=== PATIENT | male | born 1940 | race Caucasian/White ===

== ENCOUNTER 2018-06-23 09:10 | Inpatient (IN) | payer MEDICARE, BC ==
[2018-06-23] MEDS ORDERED: oxyCODONE 5 MG Tab PO PRN (12:16)
[2018-06-23] MEDS ORDERED: Ondansetron 4 MG/2 ML SDV IVPUSH PRN (12:16)
[2018-06-23] MEDS ORDERED: Albuterol 6.7 GM Inhaler INH PRN (12:26)
[2018-06-23 13:15] LABS: ANION GAP 15.4; CHLORIDE,CL 99 mmol/L (101-111); SODIUM,NA 134 mmol/L (135-145)
[2018-06-23] MEDS ORDERED: Warfarin 2.5 MG Tab PO ONE (14:00)
[2018-06-23] MEDS ORDERED: Warfarin 5 MG Tab PO ONE (14:00)
[2018-06-23] MEDS: Insulin Regular, Human 100 Units/ML 3 ML Vial SUBCUT SCH ×2 (14:06→21:24)
[2018-06-23] MEDS: Insulin Isophane NPH, Human 100 Units/ML 10 ML Vial SUBCUT SCH ×2 (14:06→21:05)
[2018-06-23] MEDS: Carbidopa/Levodopa 25-250 MG Tab PO SCH ×2 (14:24→21:03)
[2018-06-23] MEDS: Acetaminophen 500 MG Tab PO PRN (14:24)
--- NOTE | 2018-06-23 15:30 | PCM.HP ---
H&P History of Present Illness - General Date of Service: 06/23/18 Admit Problem/Dx: Admission Diagnosis/Problem Admission Diagnosis/Problem Arthroplasty of knee Source of Information: Patient History Limitations: Reports: No Limitations - History of Present Illness Initial Comments - Free Text/Narative: Mr. Rouse is a 77-year-old gentleman with past medical history significant for hypertension, hyperlipidemia, type 2 diabetes mellitus, chronic atrial fibrillation on chronic anticoagulation with Coumadin, obstructive sleep apnea on CPAP at night, rheumatoid arthritis, status post left total knee arthroplasty was transferred to this hospital from [facility] following left knee arthroplasty. Patient underwent left knee arthroplasty on 06/20/2018. Postoperative course was without complications. Transferred to swing bed here. On interview, patient denied any complaints. He reported some postoperative constipation that resolved yesterday. He denied any chest pain or shortness of breath, nausea or vomiting, change in his urinary habits. He has occasional knee pain that is responsive to Tylenol. He has been off anticoagulation for approximately 1 week. Left Knee Pain Score (Numeric/FACES): 2 - Related Data Allergies/Adverse Reactions: Allergies Allergy/AdvReac Type Severity Reaction Status Date / Time clemastine Allergy Cannot Verified 06/23/18 11:50 Remember erythromycin base Allergy Abdominal Verified 06/23/18 11:50 Pain Home Medications: Home Meds Aspirin [Adult Low Dose Aspirin EC] 81 mg PO DAILY 08/13/14 [History] Calcium Carbonate 500 mg PO BID 08/13/14 [History] Furosemide 40 mg PO DAILY 08/13/14 [History] Lisinopril 20 mg PO BID 08/13/14 [History] Omeprazole 20 mg PO BID 08/13/14 [History] Simvastatin [Zocor] 20 mg PO BEDTIME 08/13/14 [History] Verapamil [Calan SR] 240 mg PO DAILY 08/13/14 [History] Insulin Regular, Human [HumuLIN R] 12 units SUBCUT BID 08/14/14 [History] Warfarin [Coumadin] 7.5 mg PO DAILY 08/14/14 [History] Albuterol [Proventil HFA] 2 puff INH Q4H PRN 06/20/15 [History] Budesonide [Pulmicort] 0.5 mg NEB BIDRT 06/20/15 [History] Formoterol [Perforomist] 20 mcg NEB BIDRT 06/20/15 [History] Sennosides/Docusate Sodium [Senna-Docusate Sodium] 2 tab PO BID PRN 06/20/15 [ History] Acetaminophen 1,000 mg PO Q8H PRN 06/23/18 [History] Carbidopa/Levodopa [Carbidopa-Levo 25-250 mg Odt] 1 tab PO TID 06/23/18 [History ] Flaxseed Oil 1,000 mg PO BID 06/23/18 [History] Gabapentin [Neurontin] 300 mg PO BEDTIME 06/23/18 [History] Insulin Isophane NPH, Human [HumuLIN N] 12 units SQ BID 06/23/18 [History] Insulin Isophane NPH, Human [HumuLIN N] 20 unit SUBCUT BIDMEALS 06/23/18 [ History] Levothyroxine 25 mcg PO ACBREAKFAST 06/23/18 [History] Turmeric Root Extract [Turmeric Curcumin] 500 mg PO DAILY 06/23/18 [History] Warfarin [Coumadin] 0.5 tab PO DAILY 06/23/18 [History] oxyCODONE 5 mg PO Q4H PRN 06/23/18 [History] sulfaSALAzine 500 mg PO BID 06/23/18 [History] Past Medical History HEENT History: Reports: Allergic Rhinitis, Cataract, Hard of Hearing, Impaired Vision Cardiovascular History: Reports: Afib, Blood Clots/VTE/DVT, High Cholesterol, Hypertension Respiratory History: Reports: COPD, Pulmonary Fibrosis, Sleep Apnea Gastrointestinal History: Reports: GERD Genitourinary History: Reports: Chronic Renal Insuffiency Musculoskeletal History: Reports: Osteoarthritis, RA Neurological History: Reports: Neuropathy, Diabetic, Other (See Below) Other Neuro History: "light stroke" Psychiatric History: Reports: Anxiety Endocrine/Metabolic History: Reports: Diabetes, Type II - Infectious Disease History Infectious Disease History: Reports: Chicken Pox, Measles, Mumps - Past Surgical History Cardiovascular Surgical History: Reports: Other (See Below) GI Surgical History: Reports: Appendectomy, Cholecystectomy Musculoskeletal Surgical History: Reports: Knee Replacement Social & Family History - Family History Family Medical History: Noncontributory - Tobacco Use Smoking Status *Q: Former Smoker Years of Tobacco use: 10 Packs/Tins Daily: 1 Used Tobacco, but Quit: Yes Month/Year Tobacco Last Used: 1982 - Caffeine Use Caffeine Use: Reports: Coffee - Recreational Drug Use Recreational Drug Use: No H&P Review of Systems - Review of Systems: Review Of Systems: See Below General: Reports: No Symptoms HEENT: Reports: No Symptoms Pulmonary: Reports: No Symptoms Cardiovascular: Reports: No Symptoms Gastrointestinal: Reports: No Symptoms Genitourinary: Reports: No Symptoms Musculoskeletal: Reports: Other (left knee pain) Skin: Reports: No Symptoms Psychiatric: Reports: No Symptoms Neurological: Reports: No Symptoms Hematologic/Lymphatic: Reports: No Symptoms Immunologic: Reports: No Symptoms Exam - Exam Exam: See Below - Vital Signs Vital Signs: Last Vital Signs Temp 37.6 C 06/23/18 11:41 Pulse 92 06/23/18 11:41 Resp 18 06/23/18 11:41 BP 163/75 H 06/23/18 11:41 Pulse Ox 96 06/23/18 11:41 Weight: 106.866 kg - Exam General: Alert, Oriented HEENT: Conjunctiva Clear, EOMI Lungs: Clear to Auscultation, Normal Respiratory Effort Cardiovascular: Irregular Rhythm. No: Systolic Murmur GI/Abdominal Exam: Normal Bowel Sounds, Soft, Non-Tender, No Organomegaly, No Distention, No Abnormal Bruit Extremities: Other (left knee incision is covered.). No: Pedal Edema Skin: Warm, Dry, Intact Neuro Extensive - Mental Status: Alert, Oriented x3, Normal Mood/Affect, Normal Cognition Psychiatric: Alert, Normal Affect, Normal Mood - Patient Data Lab Results Last 24 hrs: Laboratory Results - last 24 hr 06/23/18 06/23/18 06/23/18 Range/Units 12:48 12:48 12:48 WBC 7.4 (5.0-10.0) 10^3/uL RBC 3.51 L (4.6-6.2) 10^6/uL Hgb 11.5 L (14.0-18.0) g/dL Hct 35.1 L (40.0-54.0) % MCV 100.0 D (80-100) fL MCH 32.8 (27.0-34.0) pg MCHC 32.8 L (33.0-35.0) g/dL Plt Count 124 L (150-450) 10^3/uL Neut % (Auto) 74.6 (42.2-75.2) % Lymph % (Auto) 11.5 L (20.5-50.1) % [place] % (Auto) 11.2 H (2-8) % Eos % (Auto) 2.6 (1.0-3.0) % Baso % (Auto) 0.1 (0.0-1.0) % PT 11.9 D (9.0-12.0) SEC INR 1.2 (0.9-1.2) Sodium 134 L (135-145) mmol/L Potassium 4.4 (3.6-5.0) mmol/L Chloride 99 L (101-111) mmol/L Carbon Dioxide 24.0 (21.0-31.0) mmol/L Anion Gap 15.4 BUN 18 (7-18) mg/dL Creatinine 1.1 (0.6-1.3) mg/dL Est Cr Clr Drug Dosing 58.07 mL/min Estimated GFR (MDRD) > 60 BUN/Creatinine Ratio 16.36 Glucose 136 H (74-105) mg/dL Calcium 8.7 (8.4-10.2) mg/dl Total Bilirubin 1.5 H (0.2-1.0) mg/dL AST 46 H (10-42) IU/L ALT 12 (10-60) IU/L Alkaline Phosphatase 152 H (42-121) IU/L Total Protein 6.3 L (6.7-8.2) g/dl Albumin 3.2 (3.2-5.5) g/dl Globulin 3.1 Albumin/Globulin Ratio 1.03 Result Diagrams: 06/23/18 12:48 06/23/18 12:48 - Problem List (1) Hypertension SNOMED Code(s): 17864271 ICD Code: I10 - ESSENTIAL (PRIMARY) HYPERTENSION Status: Acute Current Visit: Yes (2) Thrombocytopenia SNOMED Code(s): 371772064 ICD Code: D69.6 - THROMBOCYTOPENIA, UNSPECIFIED Status: Acute Current Visit: Yes (3) Total knee replacement status SNOMED Code(s): 0376154124983, 718233366, 3090374642935 ICD Code: Z96.659 - PRESENCE OF UNSPECIFIED ARTIFICIAL KNEE JOINT Status: Acute Priority: High Current Visit: No Qualifiers: Laterality: right Qualified Code(s): Z96.651 - Presence of right artificial knee joint (4) Afib SNOMED Code(s): 11243946 ICD Code: I48.91 - UNSPECIFIED ATRIAL FIBRILLATION Status: Chronic Priority: Low Current Visit: No (5) Diabetes SNOMED Code(s): 85121431 ICD Code: E11.9 - TYPE 2 DIABETES MELLITUS WITHOUT COMPLICATIONS Status: Chronic Priority: Medium Current Visit: No Qualifiers: Diabetes mellitus type: type 2 Diabetes mellitus complication status: without complication Qualified Code(s): E11.9 - Type 2 diabetes mellitus without complications (6) BOWEN (obstructive sleep apnea) SNOMED Code(s): 91295940 ICD Code: G47.33 - OBSTRUCTIVE SLEEP APNEA (ADULT) (PEDIATRIC) Status: Acute Current Visit: Yes Problem List Initiated/Reviewed/Updated: Yes Orders Last 24hrs: Active Orders 24 hr Category Date Time Status Patient Status [ADT] Routine ADT 06/23/18 12:16 Active Ambulate [RC] PER UNIT ROUTINE Care 06/23/18 12:16 Active Antiembolic Devices [RC] PER UNIT ROUTINE Care 06/23/18 12:24 Active Blood Glucose Check, Bedside [RC] QIDACANDBED Care 06/23/18 12:16 Active Oxygen Therapy [RC] PRN Care 06/23/18 12:16 Active Up With Assistance [RC] ASDIRECTED Care 06/23/18 12:16 Active Up to Chair [RC] ASDIRECTED Care 06/23/18 12:16 Active Vital Signs [RC] 08,20 Care 06/23/18 12:16 Active OT Evaluation and Treatment [CONS] Routine Cons 06/23/18 12:16 Active PT Evaluation and Treatment [CONS] Routine Cons 06/23/18 12:16 Active Consistent Carbohydrate Diet [DIET] Diet 06/23/18 Lunch Active INR,PT,PROTHROMBIN TIME [COAG] DAILY Lab 06/24/18 06:00 Ordered INR,PT,PROTHROMBIN TIME [COAG] DAILY Lab 06/25/18 06:00 Ordered INR,PT,PROTHROMBIN TIME [COAG] DAILY Lab 06/26/18 06:00 Ordered INR,PT,PROTHROMBIN TIME [COAG] DAILY Lab 06/27/18 06:00 Ordered INR,PT,PROTHROMBIN TIME [COAG] DAILY Lab 06/28/18 06:00 Ordered INR,PT,PROTHROMBIN TIME [COAG] DAILY Lab 06/29/18 06:00 Ordered INR,PT,PROTHROMBIN TIME [COAG] DAILY Lab 06/30/18 06:00 Ordered Acetaminophen [Tylenol Extra Strength] Med 06/23/18 12:26 Active 1,000 mg PO Q8H PRN Albuterol [Proventil HFA] Med 06/23/18 12:26 Active 0 gm INH Q4H PRN Aspirin [Halfprin] Med 06/24/18 09:00 Active 81 mg PO DAILY Budesonide [Pulmicort] Med 06/23/18 18:00 Active 0.5 mg NEB BIDRT Carbidopa/Levodopa [Sinemet 25-250 mg] Med 06/23/18 14:00 Active 1 tab PO TID Docusate Sodium/Sennosides [Senna Plus] Med 06/23/18 12:26 Active 2 tab PO BID PRN Formoterol [Perforomist] Med 06/23/18 18:00 Active 0 mcg NEB BIDRT Furosemide [Lasix] Med 06/24/18 09:00 Active 40 mg PO DAILY Gabapentin [Neurontin] Med 06/23/18 21:00 Active 300 mg PO BEDTIME Insulin Isophane NPH, Human [NovoLIN N] Med 06/23/18 12:26 Active 12 unit SUBCUT BID Insulin Regular, Human [HumuLIN R] Med 06/23/18 12:30 Active 12 unit SUBCUT BID Levothyroxine Med 06/24/18 06:00 Active 25 mcg PO ACBREAKFAST Lisinopril [Prinivil] Med 06/23/18 21:00 Active 20 mg PO BID Omeprazole Med 06/23/18 17:00 Active 20 mg PO BIDAC Ondansetron [Zofran] Med 06/23/18 12:16 Active 4 mg IVPUSH Q6H PRN Pharmacy to Dose - Warfarin Med 06/23/18 12:45 Pending 1 dose .XX ASDIRECTED Simvastatin [Zocor] Med 06/23/18 21:00 Active 20 mg PO BEDTIME Verapamil [Calan SR] Med 06/24/18 08:00 Active 240 mg PO WITHBREAKFAST oxyCODONE Med 06/23/18 12:16 Active 5 mg PO Q4H PRN sulfaSALAzine Med 06/23/18 21:00 Active 500 mg PO BID Sequential Compression Device [OM.PC] Routine Oth 06/23/18 12:16 Ordered Resuscitation Status Routine Resus Stat 06/23/18 12:16 Ordered Medication Orders Acetaminophen (Tylenol Extra Strength) 1,000 mg PO Q8H PRN PRN Reason: Pain Last Admin: 06/23/18 14:24 Dose: 1,000 mg Albuterol (Proventil Hfa) 0 gm INH Q4H PRN PRN Reason: Wheezing Aspirin (Halfprin) 81 mg PO DAILY [facility] Budesonide (Pulmicort) 0.5 mg NEB BIDRT [facility] Carbidopa/Levodopa (Sinemet 25-250 Mg) 1 tab PO TID [facility] Last Admin: 06/23/18 14:24 Dose: 1 tab Furosemide (Lasix) 40 mg PO DAILY [facility] Gabapentin (Neurontin) 300 mg PO BEDTIME [facility] Insulin Human NPH (Novolin N) 12 unit SUBCUT BID [facility] Last Admin: 06/23/18 14:06 Dose: Insulin Human Regular (Humulin R) 12 unit SUBCUT BID [facility] Last Admin: 06/23/18 14:06 Dose: Levothyroxine Sodium (Levothyroxine) 25 mcg PO ACBREAKFAST [facility] Lisinopril (Prinivil) 20 mg PO BID [facility] Formoterol [ Perforomist] 20 Mcg Neb 0 mcg NEB BIDRT [facility] Omeprazole (Omeprazole) 20 mg PO BIDAC [facility] Ondansetron HCl (Zofran) 4 mg IVPUSH Q6H PRN PRN Reason: Nausea/Vomiting Oxycodone HCl (Oxycodone) 5 mg PO Q4H PRN PRN Reason: Pain (moderate 4-6) Senna/Docusate Sodium (Senna Plus) 2 tab PO BID PRN PRN Reason: Constipation Simvastatin (Zocor) 20 mg PO BEDTIME [facility] Sulfasalazine (Sulfasalazine) 500 mg PO BID [facility] Verapamil HCl (Calan Sr) 240 mg PO WITHBREAKFAST [facility] Warfarin Sodium (Pharmacy To Dose - Warfarin) 1 dose .XX ASDIRECTED [facility] Assessment/Plan Comment:: Mr. Rouse is a 77-year-old gentleman with past medical history significant for hypertension, type 2 diabetes, BOWEN, rheumatoid arthritis, status post left knee arthroplasty who is here in a swing bed for PT and OT following surgery. Hypertension -Continue lisinopril and verapamil A. fib -Pharmacy to dose warfarin -Continue verapamil -Continue subcutaneous prophylaxis dose Lovenox given that patient is high risk for DVT following surgery Obstructive sleep apnea -Use CPAP Type 2 diabetes -Continue home insulin regimen -Check glucose before meals and at bedtime Thrombocytopenia -mild -Was low on 06/22/2018, was 106, today is 122 -We will monitor periodically Status post left knee arthroplasty -Continue Tylenol, oxycodone as needed Rheumatoid arthritis -Continue sulfasalazine DVT prophylaxis -lovenox sq, bridging to warfarin
[2018-06-23] MEDS: Budesonide 0.5 MG/2 ML Neb Susp NEB SCH (17:42)
[2018-06-23] MEDS: FORMOTEROL 20 MCG NEB SCH (17:42)
[2018-06-23] MEDS: Omeprazole 20 MG Cap.CR PO SCH (17:42)
[2018-06-23] MEDS: Simvastatin 10 MG Tab PO SCH (21:02)
[2018-06-23] MEDS: Gabapentin 300 MG Cap PO SCH (21:02)
[2018-06-23] MEDS: sulfaSALAzine 500 MG Tab PO SCH (21:02)
[2018-06-23] MEDS: Lisinopril 20 MG Tab PO SCH (21:03)
[2018-06-24] MEDS: Omeprazole 20 MG Cap.CR PO SCH ×2 (05:57→17:21)
[2018-06-24] MEDS: Levothyroxine 25 MCG Tab PO SCH (05:58)
[2018-06-24] MEDS: Acetaminophen 500 MG Tab PO PRN ×2 (06:26→13:55)
[2018-06-24] MEDS: Insulin Isophane NPH, Human 100 Units/ML 10 ML Vial SUBCUT SCH ×2 (08:23→17:22)
[2018-06-24] MEDS: Insulin Regular, Human 100 Units/ML 3 ML Vial SUBCUT SCH ×2 (08:25→17:21)
[2018-06-24] MEDS: Lisinopril 20 MG Tab PO SCH ×2 (08:28→21:38)
[2018-06-24] MEDS: Furosemide 40 MG Tab PO SCH (08:29)
[2018-06-24] MEDS: sulfaSALAzine 500 MG Tab PO SCH ×2 (08:29→21:37)
[2018-06-24] MEDS: Verapamil 240 MG Tab.ER PO SCH (08:30)
[2018-06-24] MEDS: Enoxaparin 40 MG/0.4 ML Syringe SUBCUT SCH (08:31)
[2018-06-24] MEDS: Carbidopa/Levodopa 25-250 MG Tab PO SCH ×3 (08:31→21:37)
[2018-06-24] MEDS: Aspirin 81 MG Tab.EC PO SCH (08:31)
[2018-06-24] MEDS: Budesonide 0.5 MG/2 ML Neb Susp NEB SCH ×2 (08:58→17:51)
[2018-06-24] MEDS: FORMOTEROL 20 MCG NEB SCH ×2 (08:58→17:44)
--- NOTE | 2018-06-24 09:59 | PCM.PN ---
- General Info Date of Service: 06/24/18 Admission Dx/Problem (Free Text): Admission Diagnosis/Problem Admission Diagnosis/Problem Arthroplasty of knee Subjective Update: I was asked by nursing staff to address a patient's concern regarding a bruise on his abdominal wall. Patient said that he injected himself with insulin and the needle remained underneath the skin. He denied any tenderness, and any induration. Also denied any pain. His review of system was otherwise unremarkable. Functional Status: Reports: Pain Controlled - Review of Systems General: Reports: No Symptoms HEENT: Reports: No Symptoms Pulmonary: Reports: No Symptoms Cardiovascular: Reports: No Symptoms Gastrointestinal: Reports: No Symptoms Genitourinary: Reports: No Symptoms Skin: Reports: Bruising Neurological: Reports: No Symptoms - Patient Data Vitals - Most Recent: Last Vital Signs Temp 37.5 C 06/24/18 07:41 Pulse 101 H 06/24/18 08:56 Resp 18 06/24/18 07:41 BP 141/77 H 06/24/18 08:28 Pulse Ox 96 06/24/18 07:41 Weight - Most Recent: 106.866 kg I&O - Last 24 Hours: Intake & Output 06/23/18 06/24/18 06/24/18 22:59 06:59 14:59 Intake Total 360 300 Balance 360 300 Lab Results Last 24 Hours: Laboratory Results - last 24 hr 06/23/18 06/23/18 06/23/18 Range/Units 12:48 12:48 12:48 WBC 7.4 (5.0-10.0) 10^3/uL RBC 3.51 L (4.6-6.2) 10^6/uL Hgb 11.5 L (14.0-18.0) g/dL Hct 35.1 L (40.0-54.0) % MCV 100.0 D (80-100) fL MCH 32.8 (27.0-34.0) pg MCHC 32.8 L (33.0-35.0) g/dL Plt Count 124 L (150-450) 10^3/uL Neut % (Auto) 74.6 (42.2-75.2) % Lymph % (Auto) 11.5 L (20.5-50.1) % Baca % (Auto) 11.2 H (2-8) % Eos % (Auto) 2.6 (1.0-3.0) % Baso % (Auto) 0.1 (0.0-1.0) % PT 11.9 D (9.0-12.0) SEC INR 1.2 (0.9-1.2) Sodium 134 L (135-145) mmol/L Potassium 4.4 (3.6-5.0) mmol/L Chloride 99 L (101-111) mmol/L Carbon Dioxide 24.0 (21.0-31.0) mmol/L Anion Gap 15.4 BUN 18 (7-18) mg/dL Creatinine 1.1 (0.6-1.3) mg/dL Est Cr Clr Drug Dosing 58.07 mL/min Estimated GFR (MDRD) > 60 BUN/Creatinine Ratio 16.36 Glucose 136 H (74-105) mg/dL POC Glucose (83-110) mg/dl Calcium 8.7 (8.4-10.2) mg/dl Total Bilirubin 1.5 H (0.2-1.0) mg/dL AST 46 H (10-42) IU/L ALT 12 (10-60) IU/L Alkaline Phosphatase 152 H (42-121) IU/L Total Protein 6.3 L (6.7-8.2) g/dl Albumin 3.2 (3.2-5.5) g/dl Globulin 3.1 Albumin/Globulin Ratio 1.03 06/23/18 06/23/18 06/24/18 Range/Units 16:46 20:32 00:03 WBC (5.0-10.0) 10^3/uL RBC (4.6-6.2) 10^6/uL Hgb (14.0-18.0) g/dL Hct (40.0-54.0) % MCV (80-100) fL MCH (27.0-34.0) pg MCHC (33.0-35.0) g/dL Plt Count (150-450) 10^3/uL Neut % (Auto) (42.2-75.2) % Lymph % (Auto) (20.5-50.1) % Baca % (Auto) (2-8) % Eos % (Auto) (1.0-3.0) % Baso % (Auto) (0.0-1.0) % PT (9.0-12.0) SEC INR (0.9-1.2) Sodium (135-145) mmol/L Potassium (3.6-5.0) mmol/L Chloride (101-111) mmol/L Carbon Dioxide (21.0-31.0) mmol/L Anion Gap BUN (7-18) mg/dL Creatinine (0.6-1.3) mg/dL Est Cr Clr Drug Dosing mL/min Estimated GFR (MDRD) BUN/Creatinine Ratio Glucose (74-105) mg/dL POC Glucose 185 H 176 H 145 H (83-110) mg/dl Calcium (8.4-10.2) mg/dl Total Bilirubin (0.2-1.0) mg/dL AST (10-42) IU/L ALT (10-60) IU/L Alkaline Phosphatase (42-121) IU/L Total Protein (6.7-8.2) g/dl Albumin (3.2-5.5) g/dl Globulin Albumin/Globulin Ratio 06/24/18 06/24/18 Range/Units 06:00 07:03 WBC (5.0-10.0) 10^3/uL RBC (4.6-6.2) 10^6/uL Hgb (14.0-18.0) g/dL Hct (40.0-54.0) % MCV (80-100) fL MCH (27.0-34.0) pg MCHC (33.0-35.0) g/dL Plt Count (150-450) 10^3/uL Neut % (Auto) (42.2-75.2) % Lymph % (Auto) (20.5-50.1) % Baca % (Auto) (2-8) % Eos % (Auto) (1.0-3.0) % Baso % (Auto) (0.0-1.0) % PT 11.1 (9.0-12.0) SEC INR 1.1 (0.9-1.2) Sodium (135-145) mmol/L Potassium (3.6-5.0) mmol/L Chloride (101-111) mmol/L Carbon Dioxide (21.0-31.0) mmol/L Anion Gap BUN (7-18) mg/dL Creatinine (0.6-1.3) mg/dL Est Cr Clr Drug Dosing mL/min Estimated GFR (MDRD) BUN/Creatinine Ratio Glucose (74-105) mg/dL POC Glucose 146 H (83-110) mg/dl Calcium (8.4-10.2) mg/dl Total Bilirubin (0.2-1.0) mg/dL AST (10-42) IU/L ALT (10-60) IU/L Alkaline Phosphatase (42-121) IU/L Total Protein (6.7-8.2) g/dl Albumin (3.2-5.5) g/dl Globulin Albumin/Globulin Ratio Med Orders - Current: Current Medications Acetaminophen (Tylenol Extra Strength) 1,000 mg PO Q8H PRN PRN Reason: Pain Last Admin: 06/24/18 06:26 Dose: 1,000 mg Albuterol (Proventil Hfa) 0 gm INH Q4H PRN PRN Reason: Wheezing Aspirin (Halfprin) 81 mg PO DAILY [facility] Last Admin: 06/24/18 08:31 Dose: 81 mg Budesonide (Pulmicort) 0.5 mg NEB BIDRT [facility] Last Admin: 06/24/18 08:58 Dose: 0.5 mg Carbidopa/Levodopa (Sinemet 25-250 Mg) 1 tab PO TID [facility] Last Admin: 06/24/18 08:31 Dose: 1 tab Enoxaparin Sodium (Lovenox) 40 mg SUBCUT DAILY [facility] Last Admin: 06/24/18 08:31 Dose: 40 mg Furosemide (Lasix) 40 mg PO DAILY [facility] Last Admin: 06/24/18 08:29 Dose: 40 mg Gabapentin (Neurontin) 300 mg PO BEDTIME [facility] Last Admin: 06/23/18 21:02 Dose: 300 mg Insulin Human NPH (Novolin N) 12 unit SUBCUT BID@0800,1700 [facility] Last Admin: 06/24/18 08:23 Dose: 12 units Insulin Human Regular (Humulin R) 12 unit SUBCUT BID@0800,1700 [facility] Last Admin: 06/24/18 08:25 Dose: 12 units Levothyroxine Sodium (Levothyroxine) 25 mcg PO ACBREAKFAST [facility] Last Admin: 06/24/18 05:58 Dose: 25 mcg Lisinopril (Prinivil) 20 mg PO BID [facility] Last Admin: 06/24/18 08:28 Dose: 20 mg Formoterol [ Perforomist] 20 Mcg Neb 0 mcg NEB BIDRT [facility] Last Admin: 06/24/18 08:58 Dose: 20 mcg Omeprazole (Omeprazole) 20 mg PO BIDAC [facility] Last Admin: 06/24/18 05:57 Dose: 20 mg Ondansetron HCl (Zofran) 4 mg IVPUSH Q6H PRN PRN Reason: Nausea/Vomiting Oxycodone HCl (Oxycodone) 5 mg PO Q4H PRN PRN Reason: Pain (moderate 4-6) Senna/Docusate Sodium (Senna Plus) 2 tab PO BID PRN PRN Reason: Constipation Last Admin: 06/23/18 21:03 Dose: 2 tab Simvastatin (Zocor) 20 mg PO BEDTIME [facility] Last Admin: 06/23/18 21:02 Dose: 20 mg Sulfasalazine (Sulfasalazine) 500 mg PO BID [facility] Last Admin: 06/24/18 08:29 Dose: 500 mg Verapamil HCl (Calan Sr) 240 mg PO WITHBREAKFAST [facility] Last Admin: 06/24/18 08:30 Dose: 240 mg Warfarin Sodium (Pharmacy To Dose - Warfarin) 1 dose .XX ASDIRECTED [facility] Warfarin Sodium (Coumadin) 5 mg PO ONETIME ONE Stop: 06/24/18 14:01 Warfarin Sodium (Coumadin) 2.5 mg PO ONETIME ONE Stop: 06/24/18 14:01 Discontinued Medications Insulin Human NPH (Novolin N) 12 unit SUBCUT BID [facility] Last Admin: 06/23/18 21:05 Dose: 12 units Insulin Human Regular (Humulin R) 12 unit SUBCUT BID [facility] Last Admin: 06/23/18 21:24 Dose: Not Given Warfarin Sodium (Coumadin) 2.5 mg PO ONETIME ONE Stop: 06/23/18 14: Last Admin: 06/23/18 14:24 Dose: 2.5 mg Warfarin Sodium (Coumadin) 5 mg PO ONETIME ONE Stop: 06/23/18 14:01 Last Admin: 06/23/18 14:24 Dose: 5 mg - Exam General: Alert, Oriented Lungs: Clear to Auscultation, Normal Respiratory Effort Cardiovascular: Irregular Rhythm GI/Abdominal Exam: Normal Bowel Sounds, Soft, Non-Tender, No Distention Skin: Ecchymosis (on the right lower abdominal wall.) - Problem List & Annotations (1) Hypertension SNOMED Code(s): 06138961 Code(s): I10 - ESSENTIAL (PRIMARY) HYPERTENSION Status: Acute Current Visit: Yes (2) Thrombocytopenia SNOMED Code(s): 876999591 Code(s): D69.6 - THROMBOCYTOPENIA, UNSPECIFIED Status: Acute Current Visit: Yes (3) Total knee replacement status SNOMED Code(s): 5330939245932, 761997183, 0240756509557 Code(s): Z96.659 - PRESENCE OF UNSPECIFIED ARTIFICIAL KNEE JOINT Status: Acute Priority: High Current Visit: No Qualifiers: Laterality: right Qualified Code(s): Z96.651 - Presence of right artificial knee joint (4) Afib SNOMED Code(s): 13002704 Code(s): I48.91 - UNSPECIFIED ATRIAL FIBRILLATION Status: Chronic Priority: Low Current Visit: No (5) Diabetes SNOMED Code(s): 90074948 Code(s): E11.9 - TYPE 2 DIABETES MELLITUS WITHOUT COMPLICATIONS Status: Chronic Priority: Medium Current Visit: No Qualifiers: Diabetes mellitus type: type 2 Diabetes mellitus complication status: without complication Qualified Code(s): E11.9 - Type 2 diabetes mellitus without complications (6) BOWEN (obstructive sleep apnea) SNOMED Code(s): 68322473 Code(s): G47.33 - OBSTRUCTIVE SLEEP APNEA (ADULT) (PEDIATRIC) Status: Acute Current Visit: Yes - Problem List Review Problem List Initiated/Reviewed/Updated: Yes - My Orders Last 24 Hours: My Active Orders 06/23/18 12:16 Patient Status [ADT] Routine Ambulate [RC] PER UNIT ROUTINE Blood Glucose Check, Bedside [RC] QIDACANDBED Oxygen Therapy [RC] PRN Up With Assistance [RC] ASDIRECTED Up to Chair [RC] ASDIRECTED Vital Signs [RC] 08,20 OT Evaluation and Treatment [CONS] Routine PT Evaluation and Treatment [CONS] Routine Ondansetron [Zofran] 4 mg IVPUSH Q6H PRN oxyCODONE 5 mg PO Q4H PRN Sequential Compression Device [OM.PC] Routine Resuscitation Status Routine 06/23/18 12:24 Antiembolic Devices [RC] PER UNIT ROUTINE 06/23/18 12:26 Acetaminophen [Tylenol Extra Strength] 1,000 mg PO Q8H PRN Albuterol [Proventil HFA] 0 gm INH Q4H PRN Docusate Sodium/Sennosides [Senna Plus] 2 tab PO BID PRN 06/23/18 12:45 Pharmacy to Dose - Warfarin 1 dose .XX ASDIRECTED 06/23/18 14:00 Carbidopa/Levodopa [Sinemet 25-250 mg] 1 tab PO TID 06/23/18 17:00 Omeprazole 20 mg PO BIDAC 06/23/18 18:00 Budesonide [Pulmicort] 0.5 mg NEB BIDRT Formoterol [Perforomist] 0 mcg NEB BIDRT 06/23/18 21:00 Gabapentin [Neurontin] 300 mg PO BEDTIME Lisinopril [Prinivil] 20 mg PO BID Simvastatin [Zocor] 20 mg PO BEDTIME sulfaSALAzine 500 mg PO BID 06/23/18 Lunch Consistent Carbohydrate Diet [DIET] 06/24/18 06:00 Levothyroxine 25 mcg PO ACBREAKFAST 06/24/18 08:00 Insulin Isophane NPH, Human [NovoLIN N] 12 unit SUBCUT BID@0800,1700 Insulin Regular, Human [HumuLIN R] 12 unit SUBCUT BID@0800,1700 Verapamil [Calan SR] 240 mg PO WITHBREAKFAST 06/24/18 08:10 CPAP Noctural Home [RT BiPAP/CPAP] [RC] ASDIRECTED 06/24/18 08:55 RT Aerosol Therapy [RC] ASDIRECTED 06/24/18 09:00 Aspirin [Halfprin] 81 mg PO DAILY Enoxaparin [Lovenox] 40 mg SUBCUT DAILY Furosemide [Lasix] 40 mg PO DAILY 06/24/18 14:00 Warfarin [Coumadin] 2.5 mg PO ONETIME ONE Warfarin [Coumadin] 5 mg PO ONETIME ONE 06/25/18 06:00 INR,PT,PROTHROMBIN TIME [COAG] DAILY 06/26/18 06:00 INR,PT,PROTHROMBIN TIME [COAG] DAILY 06/27/18 06:00 INR,PT,PROTHROMBIN TIME [COAG] DAILY 06/28/18 06:00 INR,PT,PROTHROMBIN TIME [COAG] DAILY 06/29/18 06:00 INR,PT,PROTHROMBIN TIME [COAG] DAILY 06/30/18 06:00 INR,PT,PROTHROMBIN TIME [COAG] DAILY - Plan Plan:: Mr. Rouse is a 77-year-old gentleman with past medical history significant for hypertension, type 2 diabetes, BOWEN, rheumatoid arthritis, status post left knee arthroplasty who is here in a swing bed for PT and OT following surgery. Hypertension -Continue lisinopril and verapamil A. fib -Pharmacy to dose warfarin -Continue verapamil -Continue subcutaneous prophylaxis dose Lovenox given that patient is high risk for DVT following surgery Obstructive sleep apnea -Use CPAP Type 2 diabetes -Continue home insulin regimen -Check glucose before meals and at bedtime Thrombocytopenia -mild -Was low on 06/22/2018, was 106, today is 122 -We will monitor periodically Status post left knee arthroplasty -Continue Tylenol, oxycodone as needed Rheumatoid arthritis -Continue sulfasalazine DVT prophylaxis -lovenox sq, bridging to warfarin
[2018-06-24] MEDS ORDERED: Warfarin 2.5 MG Tab PO ONE (14:00)
[2018-06-24] MEDS ORDERED: Warfarin 5 MG Tab PO ONE (14:00)
[2018-06-24] MEDS: Simvastatin 10 MG Tab PO SCH (21:37)
[2018-06-24] MEDS: Gabapentin 300 MG Cap PO SCH (21:37)
[2018-06-25] MEDS: Omeprazole 20 MG Cap.CR PO SCH ×2 (06:08→17:38)
[2018-06-25] MEDS: Levothyroxine 25 MCG Tab PO SCH (06:08)
[2018-06-25] MEDS: Budesonide 0.5 MG/2 ML Neb Susp NEB SCH ×2 (07:04→17:38)
[2018-06-25] MEDS: FORMOTEROL 20 MCG NEB SCH ×2 (07:04→17:38)
[2018-06-25] MEDS: Verapamil 240 MG Tab.ER PO SCH (08:53)
[2018-06-25] MEDS: Lisinopril 20 MG Tab PO SCH ×2 (08:54→21:08)
[2018-06-25] MEDS: Furosemide 40 MG Tab PO SCH (08:54)
[2018-06-25] MEDS: Aspirin 81 MG Tab.EC PO SCH (08:54)
[2018-06-25] MEDS: Carbidopa/Levodopa 25-250 MG Tab PO SCH ×3 (08:55→21:12)
[2018-06-25] MEDS: Insulin Regular, Human 100 Units/ML 3 ML Vial SUBCUT SCH ×2 (08:55→17:39)
[2018-06-25] MEDS: sulfaSALAzine 500 MG Tab PO SCH ×2 (08:55→21:07)
[2018-06-25] MEDS: Insulin Isophane NPH, Human 100 Units/ML 10 ML Vial SUBCUT SCH ×2 (08:56→17:37)
[2018-06-25] MEDS: Enoxaparin 40 MG/0.4 ML Syringe SUBCUT SCH (08:57)
[2018-06-25] MEDS: Acetaminophen 500 MG Tab PO PRN ×2 (12:22→20:40)
[2018-06-25] MEDS ORDERED: Warfarin 5 MG Tab PO ONE (14:00)
[2018-06-25] MEDS ORDERED: Warfarin 2.5 MG Tab PO ONE (14:00)
[2018-06-25] MEDS: Simvastatin 10 MG Tab PO SCH (21:07)
[2018-06-25] MEDS: Gabapentin 300 MG Cap PO SCH (21:13)
[2018-06-26] MEDS: Levothyroxine 25 MCG Tab PO SCH (06:20)
[2018-06-26] MEDS: Omeprazole 20 MG Cap.CR PO SCH ×2 (06:20→17:14)
[2018-06-26] MEDS: Budesonide 0.5 MG/2 ML Neb Susp NEB SCH ×2 (07:16→17:17)
[2018-06-26] MEDS: FORMOTEROL 20 MCG NEB SCH ×2 (07:16→17:18)
[2018-06-26] MEDS: Verapamil 240 MG Tab.ER PO SCH (08:14)
[2018-06-26] MEDS: Aspirin 81 MG Tab.EC PO SCH (08:14)
[2018-06-26] MEDS: Carbidopa/Levodopa 25-250 MG Tab PO SCH ×3 (08:14→20:39)
[2018-06-26] MEDS: Lisinopril 20 MG Tab PO SCH ×2 (08:15→20:38)
[2018-06-26] MEDS: Acetaminophen 500 MG Tab PO PRN ×2 (08:15→19:27)
[2018-06-26] MEDS: Furosemide 40 MG Tab PO SCH (08:15)
[2018-06-26] MEDS: sulfaSALAzine 500 MG Tab PO SCH ×2 (08:16→20:39)
[2018-06-26] MEDS: Enoxaparin 40 MG/0.4 ML Syringe SUBCUT SCH (08:16)
[2018-06-26] MEDS: Insulin Regular, Human 100 Units/ML 3 ML Vial SUBCUT SCH ×2 (08:44→17:14)
[2018-06-26] MEDS: Insulin Isophane NPH, Human 100 Units/ML 10 ML Vial SUBCUT SCH ×2 (08:45→17:15)
[2018-06-26] MEDS ORDERED: Warfarin 5 MG Tab PO ONE (14:00)
[2018-06-26] MEDS: Simvastatin 10 MG Tab PO SCH (20:38)
[2018-06-26] MEDS: Gabapentin 300 MG Cap PO SCH (20:39)
[2018-06-27] MEDS: Omeprazole 20 MG Cap.CR PO SCH ×2 (06:14→17:38)
[2018-06-27] MEDS: Levothyroxine 25 MCG Tab PO SCH (06:14)
[2018-06-27] MEDS: Acetaminophen 500 MG Tab PO PRN ×2 (06:33→14:20)
[2018-06-27] MEDS: FORMOTEROL 20 MCG NEB SCH ×2 (07:13→18:44)
[2018-06-27] MEDS: Budesonide 0.5 MG/2 ML Neb Susp NEB SCH ×2 (07:14→18:44)
[2018-06-27] MEDS: Insulin Regular, Human 100 Units/ML 3 ML Vial SUBCUT SCH ×2 (08:52→17:37)
[2018-06-27] MEDS: Insulin Isophane NPH, Human 100 Units/ML 10 ML Vial SUBCUT SCH ×2 (08:53→17:36)
[2018-06-27] MEDS: Verapamil 240 MG Tab.ER PO SCH (08:54)
[2018-06-27] MEDS: Lisinopril 20 MG Tab PO SCH ×2 (08:54→20:45)
[2018-06-27] MEDS: Carbidopa/Levodopa 25-250 MG Tab PO SCH ×3 (08:54→20:44)
[2018-06-27] MEDS: sulfaSALAzine 500 MG Tab PO SCH ×2 (08:54→20:44)
[2018-06-27] MEDS: Furosemide 40 MG Tab PO SCH (08:54)
[2018-06-27] MEDS: Aspirin 81 MG Tab.EC PO SCH (08:55)
[2018-06-27] MEDS: Enoxaparin 40 MG/0.4 ML Syringe SUBCUT SCH (08:56)
--- NOTE | 2018-06-27 09:32 | PCM.PN ---
- General Info Date of Service: 06/27/18 Admission Dx/Problem (Free Text): Admission Diagnosis/Problem Admission Diagnosis/Problem Arthroplasty of knee Subjective Update: patient reports that his exercise tolerance has decreased. he also reported some swelling in his LLE. he has intermittent pain. no fevers, chills, night sweats. there's some bruising around the dressing that is new since admission. wound is not tender to touch. - Review of Systems General: Reports: No Symptoms Pulmonary: Reports: Other (some chest tightness) Cardiovascular: Reports: Edema Gastrointestinal: Reports: No Symptoms Genitourinary: Reports: No Symptoms Musculoskeletal: Reports: Other (muscle pain) Skin: Reports: Bruising (around the wound dressing) Neurological: Reports: No Symptoms - Patient Data Vitals - Most Recent: Last Vital Signs Temp 37.3 C 06/27/18 07:48 Pulse 93 06/27/18 07:48 Resp 20 06/27/18 07:48 BP 152/77 H 06/27/18 08:54 Pulse Ox 92 L 06/27/18 07:48 Weight - Most Recent: 106.866 kg I&O - Last 24 Hours: Intake & Output 06/26/18 06/27/18 06/27/18 22:59 06:59 14:59 Intake Total 300 Balance 300 Lab Results Last 24 Hours: Laboratory Results - last 24 hr 06/26/18 06/26/18 06/26/18 Range/Units 11:17 16:28 21:04 PT (9.0-12.0) SEC INR (0.9-1.2) POC Glucose 134 H 194 H 118 H (83-110) mg/dl 06/27/18 06/27/18 Range/Units 06:21 07:38 PT 12.9 H (9.0-12.0) SEC INR 1.3 H (0.9-1.2) POC Glucose 100 (83-110) mg/dl Med Orders - Current: Current Medications Acetaminophen (Tylenol Extra Strength) 1,000 mg PO Q8H PRN PRN Reason: Pain Last Admin: 06/27/18 06:33 Dose: 1,000 mg Albuterol (Proventil Hfa) 0 gm INH Q4H PRN PRN Reason: Wheezing Aspirin (Halfprin) 81 mg PO DAILY [facility] Last Admin: 06/27/18 08:55 Dose: 81 mg Budesonide (Pulmicort) 0.5 mg NEB BIDRT [facility] Last Admin: 06/27/18 07:14 Dose: 0.5 mg Carbidopa/Levodopa (Sinemet 25-250 Mg) 1 tab PO TID [facility] Last Admin: 06/27/18 08:54 Dose: 1 tab Enoxaparin Sodium (Lovenox) 40 mg SUBCUT DAILY [facility] Last Admin: 06/27/18 08:56 Dose: 40 mg Furosemide (Lasix) 40 mg PO DAILY [facility] Last Admin: 06/27/18 08:54 Dose: 40 mg Gabapentin (Neurontin) 300 mg PO BEDTIME [facility] Last Admin: 06/26/18 20:39 Dose: 300 mg Insulin Human NPH (Novolin N) 12 unit SUBCUT BID@0800,1700 [facility] Last Admin: 06/27/18 08:53 Dose: 12 units Insulin Human Regular (Humulin R) 12 unit SUBCUT BID@0800,1700 [facility] Last Admin: 06/27/18 08:52 Dose: 12 units Levothyroxine Sodium (Levothyroxine) 25 mcg PO ACBREAKFAST [facility] Last Admin: 06/27/18 06:14 Dose: 25 mcg Lisinopril (Prinivil) 20 mg PO BID [facility] Last Admin: 06/27/18 08:54 Dose: 20 mg Formoterol [ Perforomist] 20 Mcg Neb 0 mcg NEB BIDRT [facility] Last Admin: 06/27/18 07:13 Dose: 20 mcg Omeprazole (Omeprazole) 20 mg PO BIDAC [facility] Last Admin: 06/27/18 06:14 Dose: 20 mg Ondansetron HCl (Zofran) 4 mg IVPUSH Q6H PRN PRN Reason: Nausea/Vomiting Oxycodone HCl (Oxycodone) 5 mg PO Q4H PRN PRN Reason: Pain (moderate 4-6) Last Admin: 06/26/18 13:56 Dose: 5 mg Senna/Docusate Sodium (Senna Plus) 2 tab PO BID PRN PRN Reason: Constipation Last Admin: 06/26/18 20:40 Dose: 2 tab Simvastatin (Zocor) 20 mg PO BEDTIME [facility] Last Admin: 06/26/18 20:38 Dose: 20 mg Sulfasalazine (Sulfasalazine) 500 mg PO BID [facility] Last Admin: 06/27/18 08:54 Dose: 500 mg Verapamil HCl (Calan Sr) 240 mg PO WITHBREAKFAST [facility] Last Admin: 06/27/18 08:54 Dose: 240 mg Warfarin Sodium (Pharmacy To Dose - Warfarin) 1 dose .XX ASDIRECTED [facility] Discontinued Medications Insulin Human NPH (Novolin N) 12 unit SUBCUT BID [facility] Last Admin: 06/23/18 21:05 Dose: 12 units Insulin Human Regular (Humulin R) 12 unit SUBCUT BID [facility] Last Admin: 06/23/18 21:24 Dose: Not Given Warfarin Sodium (Coumadin) 2.5 mg PO ONETIME ONE Stop: 06/23/18 14:01 Last Admin: 06/23/18 14:24 Dose: 2.5 mg Warfarin Sodium (Coumadin) 5 mg PO ONETIME ONE Stop: 06/23/18 14:01 Last Admin: 06/23/18 14:24 Dose: 5 mg Warfarin Sodium (Coumadin) 5 mg PO ONETIME ONE Stop: 06/24/18 14:01 Last Admin: 06/24/18 13:52 Dose: 5 mg Warfarin Sodium (Coumadin) 2.5 mg PO ONETIME ONE Stop: 06/24/18 14:01 Last Admin: 06/24/18 13:52 Dose: 2.5 mg Warfarin Sodium (Coumadin) 5 mg PO ONETIME ONE Stop: 06/25/18 14:01 Last Admin: 06/25/18 14:33 Dose: 5 mg Warfarin Sodium (Coumadin) 2.5 mg PO ONETIME ONE Stop: 06/25/18 14:01 Last Admin: 06/25/18 14:33 Dose: 2.5 mg Warfarin Sodium (Coumadin) 10 mg PO ONETIME ONE Stop: 06/26/18 14:01 Last Admin: 06/26/18 13:55 Dose: 10 mg - Exam General: Alert, Oriented Lungs: Clear to Auscultation, Normal Respiratory Effort Cardiovascular: Irregular Rhythm GI/Abdominal Exam: Normal Bowel Sounds, Soft, Non-Tender, No Organomegaly, No Distention Extremities: Other (left leg edema extending up to L thigh.) Skin: Warm, Dry, Intact, Ecchymosis (around the dressing) Psy/Mental Status: Alert, Normal Affect, Normal Mood - Problem List & Annotations (1) Hypertension SNOMED Code(s): 16531783 Code(s): I10 - ESSENTIAL (PRIMARY) HYPERTENSION Status: Acute Current Visit: Yes (2) Thrombocytopenia SNOMED Code(s): 235865163 Code(s): D69.6 - THROMBOCYTOPENIA, UNSPECIFIED Status: Acute Current Visit: Yes (3) Total knee replacement status SNOMED Code(s): 2489551772676, 908104760, 2547055362472 Code(s): Z96.659 - PRESENCE OF UNSPECIFIED ARTIFICIAL KNEE JOINT Status: Acute Priority: High Current Visit: No Qualifiers: Laterality: right Qualified Code(s): Z96.651 - Presence of right artificial knee joint (4) Afib SNOMED Code(s): 09380534 Code(s): I48.91 - UNSPECIFIED ATRIAL FIBRILLATION Status: Chronic Priority: Low Current Visit: No (5) Diabetes SNOMED Code(s): 80470314 Code(s): E11.9 - TYPE 2 DIABETES MELLITUS WITHOUT COMPLICATIONS Status: Chronic Priority: Medium Current Visit: No Qualifiers: Diabetes mellitus type: type 2 Diabetes mellitus complication status: without complication Qualified Code(s): E11.9 - Type 2 diabetes mellitus without complications (6) BOWEN (obstructive sleep apnea) SNOMED Code(s): 72664173 Code(s): G47.33 - OBSTRUCTIVE SLEEP APNEA (ADULT) (PEDIATRIC) Status: Acute Current Visit: Yes - Problem List Review Problem List Initiated/Reviewed/Updated: Yes - My Orders Last 24 Hours: My Active Orders 06/28/18 06:00 INR,PT,PROTHROMBIN TIME [COAG] DAILY 06/29/18 06:00 INR,PT,PROTHROMBIN TIME [COAG] DAILY 06/30/18 06:00 INR,PT,PROTHROMBIN TIME [COAG] DAILY - Plan Plan:: Mr. Rouse is a 77-year-old gentleman with past medical history significant for hypertension, type 2 diabetes, BOWEN, rheumatoid arthritis, status post left knee arthroplasty who is here in a swing bed for PT and OT following surgery. Hypertension -Continue lisinopril and verapamil A. fib -Pharmacy to dose warfarin -Continue verapamil -Continue subcutaneous prophylaxis dose Lovenox given that patient is high risk for DVT following surgery Obstructive sleep apnea -Use CPAP Type 2 diabetes -Continue home insulin regimen -Check glucose before meals and at bedtime Thrombocytopenia -mild -Was low on 06/22/2018, was 106, today is 122 -We will monitor periodically Status post left knee arthroplasty -Continue Tylenol, oxycodone as needed Rheumatoid arthritis -Continue sulfasalazine Fluid overload -will give patient 60 IV lasix -check BMP DVT prophylaxis -lovenox sq, bridging to warfarin
[2018-06-27] MEDS ORDERED: Furosemide 100 MG/10 ML SDV IVPUSH ONE (10:17)
[2018-06-27 10:40] LABS: ANION GAP 12.8; CHLORIDE,CL 102 mmol/L (101-111); SODIUM,NA 135 mmol/L (135-145)
[2018-06-27] MEDS ORDERED: Warfarin 5 MG Tab PO ONE (14:00)
[2018-06-27] MEDS: Gabapentin 300 MG Cap PO SCH (20:44)
[2018-06-27] MEDS: Simvastatin 10 MG Tab PO SCH (20:45)
[2018-06-28] MEDS: Acetaminophen 500 MG Tab PO PRN ×3 (04:40→20:50)
[2018-06-28] MEDS: Omeprazole 20 MG Cap.CR PO SCH ×2 (05:33→17:49)
[2018-06-28] MEDS: Levothyroxine 25 MCG Tab PO SCH (05:33)
[2018-06-28] MEDS: Budesonide 0.5 MG/2 ML Neb Susp NEB SCH ×2 (07:08→17:49)
[2018-06-28] MEDS: FORMOTEROL 20 MCG NEB SCH ×2 (07:08→17:50)
[2018-06-28] MEDS: Carbidopa/Levodopa 25-250 MG Tab PO SCH ×3 (08:15→20:49)
[2018-06-28] MEDS: Aspirin 81 MG Tab.EC PO SCH (08:15)
[2018-06-28] MEDS: sulfaSALAzine 500 MG Tab PO SCH ×2 (08:15→20:49)
[2018-06-28] MEDS: Furosemide 40 MG Tab PO SCH (08:16)
[2018-06-28] MEDS: Lisinopril 20 MG Tab PO SCH ×2 (08:16→20:49)
[2018-06-28] MEDS: Verapamil 240 MG Tab.ER PO SCH (08:16)
[2018-06-28] MEDS: Insulin Isophane NPH, Human 100 Units/ML 10 ML Vial SUBCUT SCH ×2 (08:17→17:48)
[2018-06-28] MEDS: Enoxaparin 40 MG/0.4 ML Syringe SUBCUT SCH (08:17)
[2018-06-28] MEDS: Insulin Regular, Human 100 Units/ML 3 ML Vial SUBCUT SCH ×2 (08:20→17:48)
[2018-06-28 10:33] LABS: ANION GAP 15.1; CHLORIDE,CL 100 mmol/L (101-111); SODIUM,NA 136 mmol/L (135-145)
[2018-06-28] MEDS ORDERED: Magnesium Hydroxide 400 MG/5 ML Susp 30 ML Cup PO PRN (11:31)
[2018-06-28] MEDS ORDERED: Furosemide 100 MG/10 ML SDV IVPUSH ONE (12:15)
[2018-06-28] MEDS ORDERED: Warfarin 5 MG Tab PO ONE (14:00)
[2018-06-28] MEDS: Gabapentin 300 MG Cap PO SCH (20:48)
[2018-06-28] MEDS: Simvastatin 10 MG Tab PO SCH (20:49)
[2018-06-29] MEDS: Omeprazole 20 MG Cap.CR PO SCH ×2 (05:47→17:32)
[2018-06-29] MEDS: Levothyroxine 25 MCG Tab PO SCH (05:47)
[2018-06-29] MEDS: Budesonide 0.5 MG/2 ML Neb Susp NEB SCH ×2 (07:14→17:33)
[2018-06-29] MEDS: FORMOTEROL 20 MCG NEB SCH ×2 (07:14→17:33)
[2018-06-29] MEDS: Enoxaparin 40 MG/0.4 ML Syringe SUBCUT SCH (08:35)
[2018-06-29] MEDS: Carbidopa/Levodopa 25-250 MG Tab PO SCH ×3 (08:36→21:06)
[2018-06-29] MEDS: Acetaminophen 500 MG Tab PO PRN ×2 (08:36→21:11)
[2018-06-29] MEDS: Lisinopril 20 MG Tab PO SCH ×2 (08:37→21:07)
[2018-06-29] MEDS: sulfaSALAzine 500 MG Tab PO SCH ×2 (08:37→21:06)
[2018-06-29] MEDS: Furosemide 40 MG Tab PO SCH (08:37)
[2018-06-29] MEDS: Verapamil 240 MG Tab.ER PO SCH (08:37)
[2018-06-29] MEDS: Aspirin 81 MG Tab.EC PO SCH (08:37)
[2018-06-29] MEDS: Insulin Regular, Human 100 Units/ML 3 ML Vial SUBCUT SCH ×2 (08:40→17:30)
[2018-06-29] MEDS: Insulin Isophane NPH, Human 100 Units/ML 10 ML Vial SUBCUT SCH ×2 (08:41→17:32)
[2018-06-29] MEDS ORDERED: Warfarin 5 MG Tab PO ONE ×2 (09:30→14:00)
[2018-06-29] MEDS: Simvastatin 10 MG Tab PO SCH (21:06)
[2018-06-29] MEDS: Gabapentin 300 MG Cap PO SCH (21:06)
[2018-06-30] MEDS: Levothyroxine 25 MCG Tab PO SCH (06:09)
[2018-06-30] MEDS: Omeprazole 20 MG Cap.CR PO SCH ×2 (06:09→18:16)
[2018-06-30] MEDS: FORMOTEROL 20 MCG NEB SCH ×2 (07:18→18:15)
[2018-06-30] MEDS: Budesonide 0.5 MG/2 ML Neb Susp NEB SCH ×2 (07:18→18:13)
[2018-06-30] MEDS: Furosemide 40 MG Tab PO SCH (08:55)
[2018-06-30] MEDS: Verapamil 240 MG Tab.ER PO SCH (08:55)
[2018-06-30] MEDS: Aspirin 81 MG Tab.EC PO SCH (08:56)
[2018-06-30] MEDS: Carbidopa/Levodopa 25-250 MG Tab PO SCH ×3 (08:56→21:09)
[2018-06-30] MEDS: sulfaSALAzine 500 MG Tab PO SCH ×2 (08:56→21:09)
[2018-06-30] MEDS: Lisinopril 20 MG Tab PO SCH ×2 (08:56→21:08)
[2018-06-30] MEDS: Acetaminophen 500 MG Tab PO PRN (08:57)
[2018-06-30] MEDS: Enoxaparin 40 MG/0.4 ML Syringe SUBCUT SCH (08:59)
[2018-06-30] MEDS: Insulin Regular, Human 100 Units/ML 3 ML Vial SUBCUT SCH ×2 (09:01→17:34)
[2018-06-30] MEDS: Insulin Isophane NPH, Human 100 Units/ML 10 ML Vial SUBCUT SCH ×2 (09:06→17:34)
[2018-06-30] MEDS ORDERED: Warfarin 5 MG Tab PO ONE (14:00)
[2018-06-30] MEDS: Gabapentin 300 MG Cap PO SCH (21:09)
[2018-06-30] MEDS: Simvastatin 10 MG Tab PO SCH (21:09)
[2018-07-01] MEDS: Acetaminophen 500 MG Tab PO PRN ×2 (00:36→08:28)
[2018-07-01] MEDS: Omeprazole 20 MG Cap.CR PO SCH (05:54)
[2018-07-01] MEDS: Levothyroxine 25 MCG Tab PO SCH (05:54)
[2018-07-01] MEDS: FORMOTEROL 20 MCG NEB SCH (07:10)
[2018-07-01] MEDS: Budesonide 0.5 MG/2 ML Neb Susp NEB SCH (07:10)
[2018-07-01] MEDS: sulfaSALAzine 500 MG Tab PO SCH (08:25)
[2018-07-01] MEDS: Carbidopa/Levodopa 25-250 MG Tab PO SCH ×2 (08:26→12:14)
[2018-07-01] MEDS: Lisinopril 20 MG Tab PO SCH (08:26)
[2018-07-01] MEDS: Verapamil 240 MG Tab.ER PO SCH (08:27)
[2018-07-01] MEDS: Furosemide 40 MG Tab PO SCH (08:28)
[2018-07-01] MEDS: Aspirin 81 MG Tab.EC PO SCH (08:28)
[2018-07-01] MEDS: Enoxaparin 40 MG/0.4 ML Syringe SUBCUT SCH (08:29)
[2018-07-01] MEDS: Insulin Regular, Human 100 Units/ML 3 ML Vial SUBCUT SCH (08:31)
[2018-07-01] MEDS: Insulin Isophane NPH, Human 100 Units/ML 10 ML Vial SUBCUT SCH (08:32)
[2018-07-01 08:35] VITALS: BP 153/70
--- NOTE | 2018-07-01 11:21 | PCM.DCSUM1 ---
Discharge Summary - Hospital Course Free Text/Narrative:: Mr. Rouse is a 77-year-old gentleman with past medical history significant for hypertension, hyperlipidemia, type 2 diabetes mellitus, chronic atrial fibrillation on chronic anticoagulation with Coumadin, obstructive sleep apnea on CPAP at night, rheumatoid arthritis, status post left total knee arthroplasty was transferred to this hospital from [facility] following left knee arthroplasty. Patient underwent left knee arthroplasty on 06/20/2018. Postoperative course was without complications. Transferred to swing bed here. Patient has been working well with PT/OT since admission. He is being discharged home in stable condition. He will follow up with PCP and orthopedics. Diagnosis: Stroke: No - Discharge Data Discharge Date: 07/01/18 Discharge Disposition: Home, Self-Care 01 Condition: Good - Patient Summary/Data Consults: Consultations 06/23/18 12:16 OT Evaluation and Treatment [CONS] Routine PT Evaluation and Treatment [CONS] Routine - Patient Instructions Diet: Heart Healthy Diet Activity: As Tolerated Driving: May Drive Today Showering/Bathing: September Shower Wound/Incision Care: Keep Operative Site/Wound Site Clean and Dry Notify Provider of: Fever, Increased Pain, Swelling and Redness, Drainage, Nausea and/or Vomiting - Discharge Plan *PRESCRIPTION DRUG MONITORING PROGRAM REVIEWED*: No *COPY OF PRESCRIPTION DRUG MONITORING REPORT IN PATIENT MODESTA: No Prescriptions/Med Rec: oxyCODONE 5 mg PO Q6H PRN 3 Days #10 tablet PRN Reason: Pain (Moderate 4-6) Home Medications: Home Meds Aspirin [Adult Low Dose Aspirin EC] 81 mg PO DAILY 08/13/14 [History] Calcium Carbonate 500 mg PO BID 08/13/14 [History] Furosemide 40 mg PO DAILY 08/13/14 [History] Lisinopril 20 mg PO BID 08/13/14 [History] Omeprazole 20 mg PO BID 08/13/14 [History] Simvastatin [Zocor] 20 mg PO BEDTIME 08/13/14 [History] Verapamil [Calan SR] 240 mg PO DAILY 08/13/14 [History] Insulin Regular, Human [HumuLIN R] 12 units SUBCUT BID 08/14/14 [History] Warfarin [Coumadin] 7.5 mg PO DAILY 08/14/14 [History] Albuterol [Proventil HFA] 2 puff INH Q4H PRN 06/20/15 [History] Budesonide [Pulmicort] 0.5 mg NEB BIDRT 06/20/15 [History] Formoterol [Perforomist] 20 mcg NEB BIDRT 06/20/15 [History] Sennosides/Docusate Sodium [Senna-Docusate Sodium] 2 tab PO BID PRN 06/20/15 [ History] Acetaminophen 1,000 mg PO Q8H PRN 06/23/18 [History] Carbidopa/Levodopa [Carbidopa-Levo 25-250 mg Odt] 1 tab PO TID 06/23/18 [History ] Flaxseed Oil 1,000 mg PO BID 06/23/18 [History] Gabapentin [Neurontin] 300 mg PO BEDTIME 06/23/18 [History] Insulin Isophane NPH, Human [HumuLIN N] 12 units SQ BID 06/23/18 [History] Insulin Isophane NPH, Human [HumuLIN N] 20 unit SUBCUT BIDMEALS 06/23/18 [ History] Levothyroxine 25 mcg PO ACBREAKFAST 06/23/18 [History] Turmeric Root Extract [Turmeric Curcumin] 500 mg PO DAILY 06/23/18 [History] Warfarin [Coumadin] 0.5 tab PO DAILY 06/23/18 [History] oxyCODONE 5 mg PO Q4H PRN 06/23/18 [History] sulfaSALAzine 500 mg PO BID 06/23/18 [History] oxyCODONE 5 mg PO Q6H PRN 3 Days #10 tablet 07/01/18 [Rx] Oxygen Therapy Mode: Room Air Patient Handouts: Total Knee Replacement, [id number] - Discharge Summary/Plan Comment DC Time >30 min.: Yes - General Info Admission Dx/Problem (Free Text: Admission Diagnosis/Problem Admission Diagnosis/Problem Arthroplasty of knee Subjective Update: patient reports that his exercise tolerance has decreased. he also reported some swelling in his LLE. he has intermittent pain. no fevers, chills, night sweats. there's some bruising around the dressing that is new since admission. wound is not tender to touch. Functional Status: Reports: Pain Controlled - Review of Systems General: Reports: No Symptoms HEENT: Reports: No Symptoms Pulmonary: Reports: No Symptoms Cardiovascular: Reports: No Symptoms Gastrointestinal: Reports: No Symptoms Genitourinary: Reports: No Symptoms Musculoskeletal: Reports: No Symptoms Skin: Reports: No Symptoms Neurological: Reports: No Symptoms Psychiatric: Reports: No Symptoms - Patient Data Vitals - Most Recent: Last Vital Signs Temp 98.0 F 07/01/18 08:00 Pulse 74 07/01/18 08:00 Resp 20 07/01/18 08:00 BP 153/70 H 07/01/18 08:26 Pulse Ox 98 07/01/18 08:00 Weight - Most Recent: 234 lb I&O - Last 24 hours: Intake & Output 06/30/18 07/01/18 07/01/18 22:59 06:59 14:59 Intake Total 1226 440 Balance 1226 440 Lab Results - Last 24 hrs: Laboratory Results - last 24 hr 06/30/18 06/30/18 06/30/18 Range/Units 11:49 16:53 20:55 POC Glucose 101 153 H 63 L (83-110) mg/dl 06/30/18 07/01/18 Range/Units 22:38 07:04 POC Glucose 99 76 L (83-110) mg/dl Med Orders - Current: Current Medications Acetaminophen (Tylenol Extra Strength) 1,000 mg PO Q8H PRN PRN Reason: Pain Last Admin: 07/01/18 08:28 Dose: 1,000 mg Albuterol (Proventil Hfa) 0 gm INH Q4H PRN PRN Reason: Wheezing Aspirin (Halfprin) 81 mg PO DAILY [facility] Last Admin: 07/01/18 08:28 Dose: 81 mg Budesonide (Pulmicort) 0.5 mg NEB BIDRT [facility] Last Admin: 07/01/18 07:10 Dose: 0.5 mg Carbidopa/Levodopa (Sinemet 25-250 Mg) 1 tab PO TID [facility] Last Admin: 07/01/18 08:26 Dose: 1 tab Enoxaparin Sodium (Lovenox) 40 mg SUBCUT DAILY [facility] Last Admin: 07/01/18 08:29 Dose: 40 mg Furosemide (Lasix) 40 mg PO DAILY [facility] Last Admin: 07/01/18 08:28 Dose: 40 mg Gabapentin (Neurontin) 300 mg PO BEDTIME [facility] Last Admin: 06/30/18 21:09 Dose: 300 mg Insulin Human NPH (Novolin N) 12 unit SUBCUT BID@0800,1700 [facility] Last Admin: 07/01/18 08:32 Dose: 12 units Insulin Human Regular (Humulin R) 12 unit SUBCUT BID@0800,1700 [facility] Last Admin: 07/01/18 08:31 Dose: 12 units Levothyroxine Sodium (Levothyroxine) 25 mcg PO ACBREAKFAST [facility] Last Admin: 07/01/18 05:54 Dose: 25 mcg Lisinopril (Prinivil) 20 mg PO BID [facility] Last Admin: 07/01/18 08:26 Dose: 20 mg Magnesium Hydroxide (Milk Of Magnesia) 30 ml PO Q8H PRN PRN Reason: Constipation Formoterol [ Perforomist] 20 Mcg Neb 0 mcg NEB BIDRT [facility] Last Admin: 07/01/18 07:10 Dose: 20 mcg Omeprazole (Omeprazole) 20 mg PO BIDAC [facility] Last Admin: 07/01/18 05:54 Dose: 20 mg Ondansetron HCl (Zofran) 4 mg IVPUSH Q6H PRN PRN Reason: Nausea/Vomiting Oxycodone HCl (Oxycodone) 5 mg PO Q4H PRN PRN Reason: Pain (moderate 4-6) Last Admin: 06/26/18 13:56 Dose: 5 mg Senna/Docusate Sodium (Senna Plus) 2 tab PO BID PRN PRN Reason: Constipation Last Admin: 06/26/18 20:40 Dose: 2 tab Simvastatin (Zocor) 20 mg PO BEDTIME [facility] Last Admin: 06/30/18 21:09 Dose: 20 mg Sulfasalazine (Sulfasalazine) 500 mg PO BID [facility] Last Admin: 07/01/18 08:25 Dose: 500 mg Verapamil HCl (Calan Sr) 240 mg PO WITHBREAKFAST [facility] Last Admin: 07/01/18 08:27 Dose: 240 mg Warfarin Sodium (Pharmacy To Dose - Warfarin) 1 dose .XX ASDIRECTED [facility] Discontinued Medications Furosemide (Lasix) 60 mg IVPUSH NOW ONE Stop: 06/27/18 10:18 Last Admin: 06/27/18 11:04 Dose: 60 mg Furosemide (Lasix) 60 mg IVPUSH NOW ONE Stop: 06/28/18 12:16 Last Admin: 06/28/18 13:03 Dose: 60 mg Insulin Human NPH (Novolin N) 12 unit SUBCUT BID [facility] Last Admin: 06/23/18 21:05 Dose: 12 units Insulin Human Regular (Humulin R) 12 unit SUBCUT BID [facility] Last Admin: 06/23/18 21:24 Dose: Not Given Warfarin Sodium (Coumadin) 2.5 mg PO ONETIME ONE Stop: 06/23/18 14:01 Last Admin: 06/23/18 14:24 Dose: 2.5 mg Warfarin Sodium (Coumadin) 5 mg PO ONETIME ONE Stop: 06/23/18 14:01 Last Admin: 06/23/18 14:24 Dose: 5 mg Warfarin Sodium (Coumadin) 5 mg PO ONETIME ONE Stop: 06/24/18 14:01 Last Admin: 06/24/18 13:52 Dose: 5 mg Warfarin Sodium (Coumadin) 2.5 mg PO ONETIME ONE Stop: 06/24/18 14:01 Last Admin: 06/24/18 13:52 Dose: 2.5 mg Warfarin Sodium (Coumadin) 5 mg PO ONETIME ONE Stop: 06/25/18 14:01 Last Admin: 06/25/18 14:33 Dose: 5 mg Warfarin Sodium (Coumadin) 2.5 mg PO ONETIME ONE Stop: 06/25/18 14:01 Last Admin: 06/25/18 14:33 Dose: 2.5 mg Warfarin Sodium (Coumadin) 10 mg PO ONETIME ONE Stop: 06/26/18 14:01 Last Admin: 06/26/18 13:55 Dose: 10 mg Warfarin Sodium (Coumadin) 10 mg PO ONETIME ONE Stop: 06/27/18 14:01 Last Admin: 06/27/18 14:20 Dose: 10 mg Warfarin Sodium (Coumadin) 10 mg PO ONETIME ONE Stop: 06/28/18 14:01 Last Admin: 06/28/18 13:02 Dose: 10 mg Warfarin Sodium (Coumadin) 10 mg PO ONETIME ONE Stop: 06/29/18 09:31 Last Admin: 06/29/18 11:26 Dose: Not Given Warfarin Sodium (Coumadin) 10 mg PO ONETIME ONE Stop: 06/29/18 14:01 Last Admin: 06/29/18 14:14 Dose: 10 mg Warfarin Sodium (Coumadin) 10 mg PO ONETIME ONE Stop: 06/30/18 14:01 Last Admin: 06/30/18 15:01 Dose: 10 mg - Exam General: Reports: Alert, Oriented HEENT: Reports: Pupils Equal, Pupils Reactive, EOMI, Mucous Membr. Moist/[place] Neck: Reports: Supple Lungs: Reports: Clear to Auscultation, Normal Respiratory Effort Cardiovascular: Reports: Regular Rate, Regular Rhythm GI/Abdominal Exam: Normal Bowel Sounds, Soft, Non-Tender, No Organomegaly, No Distention, No Abnormal Bruit, No Mass, Pelvis Stable (Male) Exam: No Hernia, Normal Inspection, Normal Prostate, Circumcised Rectal (Males) Exam: Normal Exam, Normal Rectal Tone, Prostate Normal Back Exam: Reports: Normal Inspection, Full Range of Motion Extremities: Normal Inspection, Normal Range of Motion, Non-Tender, No Pedal Edema, Normal Capillary Refill Skin: Reports: Warm, Dry, Intact Wound/Incisions: Reports: Healing Well Neurological: Reports: No New Focal Deficit Psy/Mental Status: Reports: Alert, Normal Affect, Normal Mood
[2018-07-01] MEDS ORDERED: Warfarin 5 MG Tab PO ONE (12:00)
== END 2018-07-01 13:20 | disposition home or self-care (01) | DRG 561 ==
LOC: UNDOADMIN 11:22 → DL.MS 11:22
PROVIDERS: ADMIT Internal Medicine; ATTEND Student in an Organized Health Care Education/Training Program
DX: Z47.1 Aftercare following joint replacement surgery (principal); E78.5 Hyperlipidemia, unspecified; I48.2 Chronic atrial fibrillation; M06.9 Rheumatoid arthritis, unspecified; G47.33 Obstructive sleep apnea (adult) (pediatric); E11.9 Type 2 diabetes mellitus without complications; I10 Essential (primary) hypertension; Z96.652 Presence of left artificial knee joint; D69.6 Thrombocytopenia, unspecified; E87.70 Fluid overload, unspecified; J44.9 Chronic obstructive pulmonary disease, unspecified; K21.9 Gastro-esophageal reflux disease without esophagitis; F41.9 Anxiety disorder, unspecified; H91.90 Unspecified hearing loss, unspecified ear; Z79.01 Long term (current) use of anticoagulants; Z90.49 Acquired absence of other specified parts of digestive tract; Z79.82 Long term (current) use of aspirin; Z79.4 Long term (current) use of insulin; Z79.51 Long term (current) use of inhaled steroids; Z79.891 Long term (current) use of opiate analgesic; Z87.891 Personal history of nicotine dependence
CPT/HCPCS: 36415; 80048; 80053; 82962; 85025; 85027; 85610; 94640; 97110-GO; 97110-GP; 97116-GP; 97162-GP; 97165-GO; 97530-GO; A9270-GY; J1650; J1815-GY; J1940

== ENCOUNTER 2020-02-27 17:34 | Observation (INO) | payer MEDICARE, BC ==
[2020-02-27] MEDS ORDERED: Sodium Chloride 0.9% 10 ML Syringe FLUSH PRN (17:37)
--- NOTE | 2020-02-27 17:39 | EDM.PDOC ---
<Alex Roberson - Last Filed: 02/27/20 19:53> ED HPI GENERAL MEDICAL PROBLEM - General Chief Complaint: Neuro Symptoms/Deficits Stated Complaint: STROKE MIND WENT BLANK Time Seen by Provider: 02/27/20 17:38 - Related Data Allergies Allergy/AdvReac Type Severity Reaction Status Date / Time adhesive Allergy Rash Verified 06/29/18 06:58 clemastine Allergy Cannot Verified 06/23/18 11:50 Remember erythromycin base Allergy Abdominal Verified 06/23/18 11:50 Pain Home Meds: Home Meds Aspirin [Adult Low Dose Aspirin EC] 81 mg PO DAILY 08/13/14 [History] Calcium Carbonate 500 mg PO BID 08/13/14 [History] Furosemide 40 mg PO DAILY 08/13/14 [History] Lisinopril 20 mg PO BID 08/13/14 [History] Omeprazole 20 mg PO BID 08/13/14 [History] Simvastatin [Zocor] 20 mg PO BEDTIME 08/13/14 [History] Verapamil [Calan SR] 240 mg PO DAILY 08/13/14 [History] Insulin Regular, Human [HumuLIN R] 12 units SUBCUT BID 08/14/14 [History] Warfarin [Coumadin] 7.5 mg PO DAILY 08/14/14 [History] Albuterol [Proventil HFA] 2 puff INH Q4H PRN 06/20/15 [History] Budesonide [Pulmicort] 0.5 mg NEB BIDRT 06/20/15 [History] Formoterol [Perforomist] 20 mcg NEB BIDRT 06/20/15 [History] Sennosides/Docusate Sodium [Senna-Docusate Sodium] 2 tab PO BID PRN 06/20/15 [History] Acetaminophen 1,000 mg PO Q8H PRN 06/23/18 [History] Carbidopa/Levodopa [Carbidopa-Levo 25-250 mg Odt] 1 tab PO TID 06/23/18 [History] Flaxseed Oil 1,000 mg PO BID 06/23/18 [History] Gabapentin [Neurontin] 300 mg PO BEDTIME 06/23/18 [History] Insulin Isophane NPH, Human [HumuLIN N] 12 units SQ BID 06/23/18 [History] Insulin Isophane NPH, Human [HumuLIN N] 20 unit SUBCUT BIDMEALS 06/23/18 [History] Levothyroxine 25 mcg PO ACBREAKFAST 06/23/18 [History] Turmeric Root Extract [Turmeric Curcumin] 500 mg PO DAILY 06/23/18 [History] Warfarin [Coumadin] 0.5 tab PO DAILY 06/23/18 [History] oxyCODONE 5 mg PO Q4H PRN 06/23/18 [History] sulfaSALAzine 500 mg PO BID 06/23/18 [History] Course - Re-Assessments/Exams Free Text/Narrative Re-Assessment/Exam: 02/27/20 19:53 Patient care was taken over at shift change. The patient's blood sugar was 75 and the patient was able to carry on a conversation. The patient's did not feel comfortable taking the patient home. Departure - Departure Time of Disposition: 19:54 Disposition: Refer to Observation Condition: Fair Clinical Impression: Confusion, Hypoglycemia - Discharge Information *PRESCRIPTION DRUG MONITORING PROGRAM REVIEWED*: Not Applicable *COPY OF PRESCRIPTION DRUG MONITORING REPORT IN PATIENT MODESTA: Not Applicable <Alireza Casas - Last Filed: 02/28/20 09:36> ED HPI GENERAL MEDICAL PROBLEM - General Source of Information: Reports: Patient, Family, Old Records, RN, RN Notes Reviewed History Limitations: Reports: Altered Mental Status - History of Present Illness INITIAL COMMENTS - FREE TEXT/NARRATIVE: Pt brought to ER by family after getting lost in a field. Pt called his son and [place], and his mind was "blank". The son recognized that the pt sounded very confused at after over an hour of searching, found the pt off in a neighbor's field. The family brought the pt immediately to the ER thinking he had a stroke. The pt denies pain, headache, visual changes, chest pain, or injury. Hx of DM. Blood sugar found to be 30 on triage in the ER. Onset: Today, Unknown/Unsure Duration: Improving Location: Reports: Generalized Improves with: Reports: None Worsens with: Reports: None Associated Symptoms: Reports: No Other Symptoms Past Medical History HEENT History: Reports: Allergic Rhinitis, Cataract, Hard of Hearing, Impaired Vision Cardiovascular History: Reports: Afib, Blood Clots/VTE/DVT, High Cholesterol, Hypertension Respiratory History: Reports: COPD, Pulmonary Fibrosis, Sleep Apnea Gastrointestinal History: Reports: GERD Genitourinary History: Reports: Chronic Renal Insuffiency Musculoskeletal History: Reports: Osteoarthritis, RA Neurological History: Reports: Neuropathy, Diabetic, Other (See Below) Other Neuro History: "light stroke" Psychiatric History: Reports: Anxiety Endocrine/Metabolic History: Reports: Diabetes, Type II - Infectious Disease History Infectious Disease History: Reports: Chicken Pox, Measles, Mumps - Past Surgical History Cardiovascular Surgical History: Reports: Other (See Below) GI Surgical History: Reports: Appendectomy, Cholecystectomy Musculoskeletal Surgical History: Reports: Knee Replacement Social & Family History - Family History Family Medical History: Noncontributory - Caffeine Use Caffeine Use: Reports: Coffee - Living Situation & Occupation Living situation: Reports: , with Spouse Occupation: Retired ED ROS GENERAL - Review of Systems Review Of Systems: Comprehensive ROS is negative, except as noted in HPI. ED EXAM, NEURO - Physical Exam Exam: See Below Exam Limited By: No Limitations General Appearance: Alert, WD/WN, No Apparent Distress Eye Exam: Bilateral Eye: EOMI, Normal Inspection, PERRL Ears: Normal External Exam Nose: Normal Inspection, Normal Mucosa, No Blood Throat/Mouth: Normal Inspection, Normal Lips, Normal Teeth, Normal Gums, Normal Oropharynx, Normal Voice, No Airway Compromise Head Exam: Atraumatic, Normocephalic Neck: Normal Inspection, Supple, Non-Tender, Full Range of Motion Respiratory/Chest: No Respiratory Distress, Lungs Clear, Normal Breath Sounds, No Accessory Muscle Use, Chest Non-Tender Cardiovascular: Normal Peripheral Pulses, Regular Rate, Rhythm GI/Abdominal: Normal Bowel Sounds, Soft, Non-Tender, No Distention. No: Guarding, Rigid, Rebound Neurological: Alert, Normal Dorsiflexion, CN II-XII Intact, Normal Plantar Flexion, No Motor/Sensory Deficits, Oriented x 3, Other (Mild confusion on arrival to ER, GCS 13-14) Back Exam: Normal Inspection Extremities: Normal Range of Motion, Non-Tender, Normal Capillary Refill, Other (Multiple scratches and bruises in various stages of healing on extremities (pt states he works outside a lot, and sometimes falls)) Psychiatric: Normal Affect, Normal Mood Skin Exam: Warm, Dry, Normal Color Course - Vital Signs Last Recorded V/S: Last Vital Signs Temp 97.8 F 02/28/20 04:00 Pulse 79 02/28/20 07:30 Resp 16 02/28/20 04:00 BP 147/78 H 02/28/20 04:00 Pulse Ox 97 02/28/20 04:00 - Orders/Labs/Meds Orders: Active Orders 24 hr Category Date Time Status NIH Stroke Scale [RC] ASDIRECTED Care 02/27/20 17:37 Active Peripheral IV Care [RC] 08,20 Care 02/27/20 17:38 Active CULTURE BLOOD [BC] Stat Lab 02/27/20 17:52 Results CULTURE BLOOD [BC] Stat Lab 02/27/20 18:13 Results Dextrose 5%-0.45% NaCl [Dextrose 5%-1/2 NS] 1,000 ml Med 02/27/20 18:00 Active IV ASDIRECTED Sodium Chloride 0.9% [Saline Flush] Med 02/27/20 17:37 Active 10 ml FLUSH ASDIRECTED PRN Blood Culture x2 Reflex Set [OM.PC] Stat Oth 02/27/20 17:37 Ordered Peripheral IV Insertion Adult [OM.PC] Stat Oth 02/27/20 17:37 Ordered Medication Orders Acetaminophen (Tylenol) 650 mg PO Q4H PRN PRN Reason: Pain Albuterol (Proventil Hfa) 0 gm INH Q4H PRN PRN Reason: Wheezing Aspirin (Halfprin) 81 mg PO DAILY [facility] Budesonide (Pulmicort) 0.5 mg NEB BIDRT [facility] Last Admin: 02/28/20 07:30 Dose: 0.5 mg Documented by: TERESO Calcium Carbonate/Glycine (Tums) 500 mg PO BID [facility] Last Admin: 02/27/20 21:15 Dose: 500 mg Documented by: FATIMAH Carbidopa/Levodopa (Sinemet 25-250 Mg) 1 tab PO TID [facility] Last Admin: 02/27/20 21:13 Dose: 1 tab Documented by: FATIMAH Dextrose/Water (Dextrose 50% In Water) 25 ml IVPUSH ASDIRECTED PRN PRN Reason: Hypoglycemia Last Admin: 02/27/20 20:48 Dose: 25 ml Documented by: FATIMAH Furosemide (Lasix) 40 mg PO DAILY [facility] Gabapentin (Neurontin) 300 mg PO BEDTIME [facility] Last Admin: 02/27/20 21:14 Dose: 300 mg Documented by: FATIMAH Glucagon (Glucagen) 1 mg IM ONETIME PRN PRN Reason: Hypoglycemia Heparin Sodium (Porcine) (Heparin Sodium) 5,000 units SUBCUT Q8HR [facility] Last Admin: 02/28/20 05:47 Dose: 5,000 units Documented by: Admin: 02/27/20 21:15 Dose: 5,000 units Documented by: FATIMAH Dextrose/Sodium Chloride (Dextrose 5%-1/2 Ns) 1,000 mls @ 150 mls/hr IV ASDIRECTED [facility] Last Admin: 02/28/20 03:40 Dose: 150 mls/hr Documented by: Infusion: 02/28/20 01:02 Dose: 150 mls/hr Documented by: Admin: 02/27/20 18:21 Dose: 150 mls/hr Documented by: EDWIN Insulin Human Lispro (Humalog) 0 unit SUBCUT QIDACANDBED [facility]; Protocol Last Admin: 02/27/20 21:15 Dose: Not Given Documented by: FATIMAH Insulin Human NPH (Humulin N) 12 unit SQ BIDMEALS [facility] Insulin Human Regular (Humulin R) 12 unit SUBCUT BIDMEALS [facility] Levothyroxine Sodium (Levothyroxine) 25 mcg PO ACBREAKFAST [facility] Last Admin: 02/28/20 05:47 Dose: 25 mcg Documented by: FATIMAH Lisinopril (Prinivil) 20 mg PO BID [facility] Last Admin: 02/27/20 21:14 Dose: 20 mg Documented by: FATIMAH Non-Formulary Medication (Flaxseed Oil [Flaxseed Oil]) 1,000 mg PO BID [facility] Non-Formulary Medication (Formoterol [Perforomist]) 20 mcg NEB BIDRT [facility] Omeprazole (Omeprazole) 20 mg PO BID [facility] Last Admin: 02/27/20 21:14 Dose: 20 mg Documented by: FATIMAH Ondansetron HCl (Zofran Odt) 4 mg PO Q6H PRN PRN Reason: nausea, able to take PO Ondansetron HCl (Zofran) 4 mg IVPUSH Q6H PRN PRN Reason: Nausea/Vomiting Oxycodone HCl (Oxycodone) 5 mg PO Q4H PRN PRN Reason: Pain (moderate 4-6) Senna/Docusate Sodium (Senna Plus) 1 tab PO BEDTIME PRN PRN Reason: Constipation Senna/Docusate Sodium (Senna Plus) 2 tab PO BID PRN PRN Reason: Constipation Simvastatin (Zocor) 20 mg PO BEDTIME [facility] Last Admin: 02/27/20 21:14 Dose: 20 mg Documented by: FATIMAH Sodium Chloride (Saline Flush) 10 ml FLUSH ASDIRECTED PRN PRN Reason: Keep Vein Open Last Admin: 02/27/20 18:20 Dose: 10 ml Documented by: EDWIN Verapamil HCl (Calan Sr) 240 mg PO DAILY [facility] Warfarin Sodium (Pharmacy To Dose - Warfarin) 1 dose .XX ASDIRECTED [facility] Warfarin Sodium (Coumadin) 7.5 mg PO ONETIME ONE Stop: 02/28/20 14:01 Labs: Laboratory Tests 02/27/20 02/27/20 02/27/20 Range/Units 18:13 18:13 18:13 WBC 7.6 (5.0-10.0) 10^3/uL RBC 4.29 L (4.6-6.2) 10^6/uL Hgb 14.4 D (14.0-18.0) g/dL Hct 43.6 (40.0-54.0) % MCV 101.6 H (80-100) fL MCH 33.6 (27.0-34.0) pg MCHC 33.0 (33.0-35.0) g/dL Plt Count 161 (150-450) 10^3/uL Neut % (Auto) 81.6 H (42.2-75.2) % Lymph % (Auto) 8.1 L (20.5-50.1) % [place] % (Auto) 8.9 H (2-8) % Eos % (Auto) 1.3 (1.0-3.0) % Baso % (Auto) 0.1 (0.0-1.0) % PT 17.4 H (9.0-12.0) SEC INR 1.8 H (0.9-1.2) APTT 30.6 (22.0-34.0) SEC Sodium 141 (136-145) mmol/L Potassium 3.7 (3.5-5.1) mmol/L Chloride 102 (98-107) mmol/L Carbon Dioxide 30 (21-32) mmol/L Anion Gap 12.7 (7-13) mEq/L BUN 31 H (7-18) mg/dL Creatinine 1.44 H (0.70-1.30) mg/dL Est Cr Clr Drug Dosing TNP Estimated GFR (MDRD) 47 BUN/Creatinine Ratio 21.5 (No establ ref range) Glucose 121 H (74-99) mg/dL Calcium 8.7 (8.5-10.1) mg/dL Magnesium 2.3 (1.8-2.4) mg/dL Total Bilirubin 0.8 (0.2-1.0) mg/dL AST 53 H (15-37) U/L ALT 18 (16-63) U/L Alkaline Phosphatase 271 H (46-116) U/L Troponin I < 0.017 (0.000-0.056) ng/mL Total Protein 8.1 (6.4-8.2) g/dL Albumin 3.7 (3.4-5.0) g/dL Globulin 4.4 Albumin/Globulin Ratio 0.8 TSH, Ultra Sensitive 2.41 (0.36-3.74) uIU/mL Urine Color (YELLOW) Urine Appearance (CLEAR) Urine pH (5.0-9.0) Ur Specific [place] (1.005-1.030) Urine Protein (NEGATIVE) Urine Glucose (UA) (NEGATIVE) Urine Ketones (NEGATIVE) Urine Occult Blood (NEGATIVE) Urine Nitrite (NEGATIVE) Urine Bilirubin (NEGATIVE) Urine Urobilinogen (0.2-1.0) mg/dL Ur Leukocyte Esterase (NEGATIVE) U Hyaline Cast (Auto) Urine RBC /HPF Urine WBC (0-5/HPF) /HPF Ur Epithelial Cells (NOT SEEN) /HPF Urine Bacteria (0-FEW/HPF) /HPF Urine Mucus (NOT SEEN) /LPF Urine Opiates Screen (NEGATIVE) Ur Oxycodone Screen (NEGATIVE) Urine Methadone Screen (NEGATIVE) Ur Barbiturates Screen (NEGATIVE) U Tricyclic Antidepress (NEGATIVE) Ur Phencyclidine Scrn (NEGATIVE) Ur Amphetamine Screen (NEGATIVE) U Methamphetamines Scrn (NEGATIVE) Urine MDMA Screen (NEGATIVE) U Benzodiazepines Scrn (NEGATIVE) Urine Cocaine Screen (NEGATIVE) U Marijuana (THC) Screen (NEGATIVE) Ethyl Alcohol < 3 (0) mg/dL 02/27/20 02/27/20 Range/Units 18:35 18:35 WBC (5.0-10.0) 10^3/uL RBC (4.6-6.2) 10^6/uL Hgb (14.0-18.0) g/dL Hct (40.0-54.0) % MCV (80-100) fL MCH (27.0-34.0) pg MCHC (33.0-35.0) g/dL Plt Count (150-450) 10^3/uL Neut % (Auto) (42.2-75.2) % Lymph % (Auto) (20.5-50.1) % [place] % (Auto) (2-8) % Eos % (Auto) (1.0-3.0) % Baso % (Auto) (0.0-1.0) % PT (9.0-12.0) SEC INR (0.9-1.2) APTT (22.0-34.0) SEC Sodium (136-145) mmol/L Potassium (3.5-5.1) mmol/L Chloride (98-107) mmol/L Carbon Dioxide (21-32) mmol/L Anion Gap (7-13) mEq/L BUN (7-18) mg/dL Creatinine (0.70-1.30) mg/dL Est Cr Clr Drug Dosing Estimated GFR (MDRD) BUN/Creatinine Ratio (No establ ref range) Glucose (74-99) mg/dL Calcium (8.5-10.1) mg/dL Magnesium (1.8-2.4) mg/dL Total Bilirubin (0.2-1.0) mg/dL AST (15-37) U/L ALT (16-63) U/L Alkaline Phosphatase (46-116) U/L Troponin I (0.000-0.056) ng/mL Total Protein (6.4-8.2) g/dL Albumin (3.4-5.0) g/dL Globulin Albumin/Globulin Ratio TSH, Ultra Sensitive (0.36-3.74) uIU/mL Urine Color Dark yellow (YELLOW) Urine Appearance Slightly cloudy (CLEAR) Urine pH 5.5 (5.0-9.0) Ur Specific [place] 1.020 (1.005-1.030) Urine Protein Trace H (NEGATIVE) Urine Glucose (UA) Negative (NEGATIVE) Urine Ketones Negative (NEGATIVE) Urine Occult Blood Negative (NEGATIVE) Urine Nitrite Negative (NEGATIVE) Urine Bilirubin Negative (NEGATIVE) Urine Urobilinogen 0.2 (0.2-1.0) mg/dL Ur Leukocyte Esterase Negative (NEGATIVE) U Hyaline Cast (Auto) Rare Urine RBC 0-5 /HPF Urine WBC 0-5 (0-5/HPF) /HPF Ur Epithelial Cells Rare (NOT SEEN) /HPF Urine Bacteria Rare (0-FEW/HPF) /HPF Urine Mucus Rare (NOT SEEN) /LPF Urine Opiates Screen Negative (NEGATIVE) Ur Oxycodone Screen Negative (NEGATIVE) Urine Methadone Screen Negative (NEGATIVE) Ur Barbiturates Screen Negative (NEGATIVE) U Tricyclic Antidepress Negative (NEGATIVE) Ur Phencyclidine Scrn Negative (NEGATIVE) Ur Amphetamine Screen Negative (NEGATIVE) U Methamphetamines Scrn Negative (NEGATIVE) Urine MDMA Screen Negative (NEGATIVE) U Benzodiazepines Scrn Negative (NEGATIVE) Urine Cocaine Screen Negative (NEGATIVE) U Marijuana (THC) Screen Negative (NEGATIVE) Ethyl Alcohol (0) mg/dL Meds: Medications Generic Name Dose Route Start Last Admin Trade Name Freq PRN Reason Stop Dose Admin Acetaminophen 650 mg 02/27/20 20:13 Tylenol PO Q4H PRN Pain Albuterol 0 gm 02/27/20 20:19 Proventil Hfa INH Q4H PRN Wheezing Aspirin 81 mg 02/28/20 09:00 Halfprin PO DAILY [facility] Budesonide 0.5 mg 02/28/20 07:00 02/28/20 07:30 Pulmicort NEB 0.5 mg BIDRT [facility] Administration Calcium Carbonate/Glycine 500 mg 02/27/20 21:00 02/27/20 21:15 Tums PO 500 mg BID [facility] Administration Carbidopa/Levodopa 1 tab 02/27/20 21:00 02/27/20 21:13 Sinemet 25-250 Mg PO 1 tab TID [facility] Administration Dextrose/Water 25 ml 02/27/20 20:13 02/27/20 20:48 Dextrose 50% In Water IVPUSH 25 ml ASDIRECTED PRN Administration Hypoglycemia Furosemide 40 mg 02/28/20 09:00 Lasix PO DAILY [facility] Gabapentin 300 mg 02/27/20 21:00 02/27/20 21:14 Neurontin PO 300 mg BEDTIME [facility] Administration Glucagon 1 mg 02/27/20 20:13 Glucagen IM ONETIME PRN Hypoglycemia Heparin Sodium (Porcine) 5,000 units 02/27/20 22:00 02/28/20 05:47 Heparin Sodium SUBCUT 5,000 units Q8HR [facility] Administration Dextrose/Sodium Chloride 1,000 mls @ 150 mls/hr 02/27/20 18:00 02/28/20 03:40 Dextrose 5%-1/2 Ns IV 150 mls/hr ASDIRECTED [facility] Administration Insulin Human Lispro 0 unit 02/27/20 21:00 02/27/20 21:15 Humalog SUBCUT Not Given QIDACANDBED [facility] Protocol Insulin Human NPH 12 unit 02/28/20 08:00 Humulin N SQ BIDMEALS [facility] Insulin Human Regular 12 unit 02/28/20 08:00 Humulin R SUBCUT BIDMEALS [facility] Levothyroxine Sodium 25 mcg 02/28/20 06:00 02/28/20 05:47 Levothyroxine PO 25 mcg ACBREAKFAST [facility] Administration Lisinopril 20 mg 02/27/20 21:00 02/27/20 21:14 Prinivil PO 20 mg BID [facility] Administration Non-Formulary Medication 1,000 mg 02/27/20 21:00 Flaxseed Oil [Flaxseed Oil] PO BID [facility] Non-Formulary Medication 20 mcg 02/28/20 07:00 Formoterol [Perforomist] NEB BIDRT [facility] Omeprazole 20 mg 02/27/20 21:00 02/27/20 21:14 Omeprazole PO 20 mg BID [facility] Administration Ondansetron HCl 4 mg 02/27/20 20:13 Zofran Odt PO Q6H PRN nausea, able to take PO Ondansetron HCl 4 mg 02/27/20 20:13 Zofran IVPUSH Q6H PRN Nausea/Vomiting Oxycodone HCl 5 mg 02/27/20 20:19 Oxycodone PO Q4H PRN Pain (moderate 4-6) Senna/Docusate Sodium 1 tab 02/27/20 20:13 Senna Plus PO BEDTIME PRN Constipation Senna/Docusate Sodium 2 tab 02/27/20 20:19 Senna Plus PO BID PRN Constipation Simvastatin 20 mg 02/27/20 21:00 02/27/20 21:14 Zocor PO 20 mg BEDTIME [facility] Administration Sodium Chloride 10 ml 02/27/20 17:37 02/27/20 18:20 Saline Flush FLUSH 10 ml ASDIRECTED PRN Administration Keep Vein Open Verapamil HCl 240 mg 02/28/20 09:00 Calan Sr PO DAILY [facility] Warfarin Sodium 1 dose 02/27/20 20:45 Pharmacy To Dose - Warfarin .XX ASDIRECTED [facility] Warfarin Sodium 7.5 mg 02/28/20 14:00 Coumadin PO 02/28/20 14:01 ONETIME ONE Discontinued Medications Generic Name Dose Route Start Last Admin Trade Name Freq PRN Reason Stop Dose Admin Amlodipine Besylate 5 mg 02/27/20 20:40 02/27/20 21:14 Norvasc PO 02/27/20 20:41 5 mg ONETIME ONE Administration Dextrose/Water 50 ml 02/27/20 17:52 02/27/20 17:52 Dextrose 50% In Water IVPUSH 02/27/20 17:53 50 ml ONETIME ONE Administration Dextrose/Water Confirm 02/27/20 17:52 02/27/20 18:20 Dextrose 50% In Water Administered 02/27/20 17:53 Not Given Dose 50 ml .ROUTE .STK-MED ONE Insulin Human NPH 12 unit 02/27/20 21:00 Humulin N SQ BID [facility] Insulin Human Regular 12 unit 02/27/20 21:00 02/27/20 21:15 Humulin R SUBCUT Not Given BID [facility] - Radiology Interpretation Free Text/Narrative:: [facility] [place] [facility] Final Radiology Report with Addendum Call: [phone] assistance Online chat: [email or web address] Name: ABHIJIT LÓPEZ Age: 79Years M Date: 02/27/2020 SSN: -- : [id number] Study: CT HEAD WO CONT Requesting Physician: ALIREZA CASAS Images: 142 Addl Studies: Provided Clinical History: STROKE CODE: found down, acute confusion, Hx CVA Contrast: Without Contrast Medium: Contrast Amount: Contrast Method: Page 1 of 2 Addendum created by Josiah Connor MD on 02/27/2020 5:57 PM Central Time ([place] & [place]): THIS REPORT CONTAINS FINDINGS THAT MAY BE CRITICAL TO PATIENT CARE. The findings were verbally communicated via telephone conference with ALIREZA CASAS at 5:57 PM CDT on 02/27/2020. The findings were acknowledged and understood. Initial Report created on 02/27/2020 5:47 PM Central Time ([place] & [place]): PROCEDURE INFORMATION: Exam: CT Head Without Contrast Exam date and time: 02/27/2020 5:37 PM Age: 79 years old Clinical indication: Altered mental status/memory loss; Confusion or disorientation; Additional info: Stroke code: Found down, acute confusion, HX CVA TECHNIQUE: Imaging protocol: Computed tomography of the head without contrast. Radiation optimization: All CT scans at this facility use at least one of these dose optimization techniques: automated exposure control; mA and/or kV adjustment per patient size (includes targeted exams where dose is matched to clinical indication); or iterative reconstruction. Other technique: STROKE PROTOCOL was implemented. COMPARISON: No relevant prior studies available. FINDINGS: Brain: No mass, intracranial hemorrhage, or brain edema. No transcortical defect. Normal cerebellum and brainstem. Moderate diffuse brain volume loss without focal encephalomalacia. There is a small degree of periventricular white matter hypoattenuation and mild carotid atherosclerosis Cerebral ventricles: No ventriculomegaly. Bones/joints: Normal. Paranasal sinuses: Visualized sinuses are unremarkable. No fluid levels. ABHIJIT LÓPEZ | Final Radiology Report CONFIDENTIALITY STATEMENT This report is intended only for use by the referring physician, and only in accordance with law. If you received this in error, call [phone]. Page 2 of 2 Mastoid air cells: Normal. Soft tissues: Unremarkable. IMPRESSION: 1. No acute intracranial abnormality. 2. 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 ASSESSMENT: ASPECTS ([place] Stroke Program Early CT Score) is 10. Thank you for allowing us to participate in the care of your patient. Dictated and Authenticated by: Josiah Connor MD 02/27/2020 5:47 PM Central Time ([place] & [place]) - My Orders Last 24 Hours: My Active Orders 02/27/20 17:37 NIH Stroke Scale [RC] ASDIRECTED Sodium Chloride 0.9% [Saline Flush] 10 ml FLUSH ASDIRECTED PRN Blood Culture x2 Reflex Set [OM.PC] Stat Peripheral IV Insertion Adult [OM.PC] Stat 02/27/20 17:38 Peripheral IV Care [RC] 02/27/20 17:52 CULTURE BLOOD [BC] Stat 02/27/20 18:00 Dextrose 5%-0.45% NaCl [Dextrose 5%-1/2 NS] 1,000 ml IV ASDIRECTED 02/27/20 18:13 CULTURE BLOOD [BC] Stat - Assessment/Plan Last 24 Hours: My Active Orders 02/27/20 17:37 NIH Stroke Scale [RC] ASDIRECTED Sodium Chloride 0.9% [Saline Flush] 10 ml FLUSH ASDIRECTED PRN Blood Culture x2 Reflex Set [OM.PC] Stat Peripheral IV Insertion Adult [OM.PC] Stat 02/27/20 17:38 Peripheral IV Care [RC] 02/27/20 17:52 CULTURE BLOOD [BC] Stat 02/27/20 18:00 Dextrose 5%-0.45% NaCl [Dextrose 5%-1/2 NS] 1,000 ml IV ASDIRECTED 02/27/20 18:13 CULTURE BLOOD [BC] Stat
--- NOTE | 2020-02-27 17:47 | CT ---
PROCEDURE INFORMATION: Exam: CT Head Without Contrast Exam date and time: 02/27/2020 5:37 PM Age: 79 years old Clinical indication: Altered mental status/memory loss; Confusion or disorientation; Additional info: Stroke code: Found down, acute confusion, HX CVA TECHNIQUE: Imaging protocol: Computed tomography of the head without contrast. Radiation optimization: All CT scans at this facility use at least one of these dose optimization techniques: automated exposure control; mA and/or kV adjustment per patient size (includes targeted exams where dose is matched to clinical indication); or iterative reconstruction. Other technique: STROKE PROTOCOL was implemented. COMPARISON: No relevant prior studies available. FINDINGS: Brain: No mass, intracranial hemorrhage, or brain edema. No transcortical defect. Normal cerebellum and brainstem. Moderate diffuse brain volume loss without focal encephalomalacia. There is a small degree of periventricular white matter hypoattenuation and mild carotid atherosclerosis Cerebral ventricles: No ventriculomegaly. Bones/joints: Normal. Paranasal sinuses: Visualized sinuses are unremarkable. No fluid levels. Mastoid air cells: Normal. Soft tissues: Unremarkable. IMPRESSION: 1. No acute intracranial abnormality. 2. 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 ASSESSMENT: ASPECTS ([place] Stroke Program Early CT Score) is 10.
[2020-02-27] MEDS ORDERED: 50% Dextrose in Water 50 ML Syringe IVPUSH ONE (17:52)
[2020-02-27] MEDS ORDERED: 50% Dextrose in Water 50 ML Syringe ONE (17:52)
[2020-02-27] MEDS: Dextrose 5%-0.45% NaCl 1,000 ML IV SCH (18:21)
[2020-02-27 18:31] LABS: PTT,PARTIAL THROMBOPLSTIN TIME 30.6 SEC (22.0-34.0)
[2020-02-27 18:54] LABS: ANION GAP 12.7 mEq/L (7-13); CHLORIDE,CL 102 mmol/L (98-107); SODIUM,NA 141 mmol/L (136-145)
[2020-02-27] MEDS ORDERED: 50% Dextrose in Water 50 ML Syringe IVPUSH PRN (20:13)
[2020-02-27] MEDS ORDERED: Glucagon,Human Recombinant 1 MG Vial IM PRN (20:13)
[2020-02-27] MEDS ORDERED: Ondansetron 4 MG/2 ML SDV IVPUSH PRN (20:13)
[2020-02-27] MEDS ORDERED: Acetaminophen 325 MG Tab PO PRN (20:13)
[2020-02-27] MEDS ORDERED: Ondansetron 4 MG Tab.DIS PO PRN (20:13)
[2020-02-27] MEDS ORDERED: Albuterol 6.7 GM Inhaler INH PRN (20:19)
[2020-02-27] MEDS ORDERED: oxyCODONE 5 MG Tab PO PRN (20:19)
--- NOTE | 2020-02-27 20:36 | PCM.HP ---
H&P History of Present Illness - General Date of Service: 02/27/20 Admit Problem/Dx: Admission Diagnosis/Problem Admission Diagnosis/Problem Hypoglycemia Source of Information: Patient, Family, Provider - History of Present Illness Initial Comments - Free Text/Narative: Patient is a 79-year-old male with medical history significant for diabetes on insulin regimen, dyslipidemia, hypertension, chronic atrial fibrillation on anticoagulation with warfarin, BOWEN on CPAP, pulmonary fibrosis, and rheumatoid arthritis who was brought to the ED by family for confusion. Patient's at bedside reports that patient called the son today. Vital signs responded, patient did not say anything. Son called back and patient asked who it was. states that he was asleep patient did not know who the son was. Subsequently, patient stated that he was lost. Patient had wandered from their farm to the neighbor's and was working on that land. They report that when they checked patient's blood sugar, blood glucose was found to be 30 in the triage. Patient reports that he took 21 units of insulin and he ate a good breakfast. Reports that he normally feels hypoglycemic symptoms around blood glucose of 60s to 70s. However, today he states that he did not feel any symptoms. He denies any focal weakness or loss of sensation, denies any vision changes, tinnitus, headache, vision changes, nausea, vomiting, diarrhea, constipation, chest pain, shortness of breath, or any new symptoms. - Related Data Allergies/Adverse Reactions: Allergies Allergy/AdvReac Type Severity Reaction Status Date / Time adhesive Allergy Rash Verified 06/29/18 06:58 clemastine Allergy Cannot Verified 06/23/18 11:50 Remember erythromycin base Allergy Abdominal Verified 06/23/18 11:50 Pain Home Medications: Home Meds Aspirin [Adult Low Dose Aspirin EC] 81 mg PO DAILY 08/13/14 [History] Calcium Carbonate 500 mg PO BID 08/13/14 [History] Furosemide 40 mg PO DAILY 08/13/14 [History] Lisinopril 20 mg PO BID 08/13/14 [History] Omeprazole 20 mg PO BID 08/13/14 [History] Simvastatin [Zocor] 20 mg PO BEDTIME 08/13/14 [History] Verapamil [Calan SR] 240 mg PO DAILY 08/13/14 [History] Insulin Regular, Human [HumuLIN R] 12 units SUBCUT BID 08/14/14 [History] Warfarin [Coumadin] 7.5 mg PO DAILY 08/14/14 [History] Albuterol [Proventil HFA] 2 puff INH Q4H PRN 06/20/15 [History] Budesonide [Pulmicort] 0.5 mg NEB BIDRT 06/20/15 [History] Formoterol [Perforomist] 20 mcg NEB BIDRT 06/20/15 [History] Sennosides/Docusate Sodium [Senna-Docusate Sodium] 2 tab PO BID PRN 06/20/15 [History] Acetaminophen 1,000 mg PO Q8H PRN 06/23/18 [History] Carbidopa/Levodopa [Carbidopa-Levo 25-250 mg Odt] 1 tab PO TID 06/23/18 [History] Flaxseed Oil 1,000 mg PO BID 06/23/18 [History] Gabapentin [Neurontin] 300 mg PO BEDTIME 06/23/18 [History] Insulin Isophane NPH, Human [HumuLIN N] 12 units SQ BID 06/23/18 [History] Insulin Isophane NPH, Human [HumuLIN N] 20 unit SUBCUT BIDMEALS 06/23/18 [History] Levothyroxine 25 mcg PO ACBREAKFAST 06/23/18 [History] Turmeric Root Extract [Turmeric Curcumin] 500 mg PO DAILY 06/23/18 [History] Warfarin [Coumadin] 0.5 tab PO DAILY 06/23/18 [History] oxyCODONE 5 mg PO Q4H PRN 06/23/18 [History] sulfaSALAzine 500 mg PO BID 06/23/18 [History] Past Medical History HEENT History: Reports: Allergic Rhinitis, Cataract, Hard of Hearing, Impaired Vision Cardiovascular History: Reports: Afib, Blood Clots/VTE/DVT, High Cholesterol, Hypertension Respiratory History: Reports: COPD, Pulmonary Fibrosis, Sleep Apnea Gastrointestinal History: Reports: GERD Genitourinary History: Reports: Chronic Renal Insuffiency Musculoskeletal History: Reports: Osteoarthritis, RA Neurological History: Reports: Neuropathy, Diabetic, Other (See Below) Other Neuro History: "light stroke" Psychiatric History: Reports: Anxiety Endocrine/Metabolic History: Reports: Diabetes, Type II - Infectious Disease History Infectious Disease History: Reports: Chicken Pox, Measles, Mumps - Past Surgical History Cardiovascular Surgical History: Reports: Other (See Below) GI Surgical History: Reports: Appendectomy, Cholecystectomy Musculoskeletal Surgical History: Reports: Knee Replacement Social & Family History - Family History Family Medical History: Noncontributory - Tobacco Use Smoking Status *Q: Never Smoker - Caffeine Use Caffeine Use: Reports: Coffee - Recreational Drug Use Recreational Drug Use: No - Living Situation & Occupation Living situation: Reports: , with Spouse Occupation: Retired H&P Review of Systems - Review of Systems: Review Of Systems: Comprehensive ROS is negative, except as noted in HPI. Exam - Exam Exam: See Below - Vital Signs Vital Signs: Last Vital Signs Temp 98 F 02/27/20 18:06 Pulse 71 02/27/20 18:06 Resp 16 02/27/20 18:06 BP 185/83 H 02/27/20 18:06 Pulse Ox 100 02/27/20 18:06 - Exam General: Alert, Oriented, Cooperative, Mild Distress HEENT: Conjunctiva Clear, EOMI, Hearing Intact, Pupils Equal, Pupils Reactive Neck: Supple, Trachea Midline Lungs: Clear to Auscultation, Normal Respiratory Effort Cardiovascular: Regular Rate, Regular Rhythm GI/Abdominal Exam: Normal Bowel Sounds, Soft, Non-Tender, No Distention Extremities: Normal Inspection, Non-Tender, No Pedal Edema Skin: Warm, Dry, Intact Neuro Extensive - Mental Status: Alert, Oriented x3, Normal Mood/Affect, Normal Cognition, Memory Intact Psychiatric: Alert, Normal Affect, Normal Mood - Patient Data Lab Results Last 24 hrs: Laboratory Results - last 24 hr 02/27/20 02/27/20 02/27/20 Range/Units 18:13 18:13 18:13 WBC 7.6 (5.0-10.0) 10^3/uL RBC 4.29 L (4.6-6.2) 10^6/uL Hgb 14.4 D (14.0-18.0) g/dL Hct 43.6 (40.0-54.0) % MCV 101.6 H (80-100) fL MCH 33.6 (27.0-34.0) pg MCHC 33.0 (33.0-35.0) g/dL Plt Count 161 (150-450) 10^3/uL Neut % (Auto) 81.6 H (42.2-75.2) % Lymph % (Auto) 8.1 L (20.5-50.1) % Lucas % (Auto) 8.9 H (2-8) % Eos % (Auto) 1.3 (1.0-3.0) % Baso % (Auto) 0.1 (0.0-1.0) % PT 17.4 H (9.0-12.0) SEC INR 1.8 H (0.9-1.2) APTT 30.6 (22.0-34.0) SEC Sodium 141 (136-145) mmol/L Potassium 3.7 (3.5-5.1) mmol/L Chloride 102 (98-107) mmol/L Carbon Dioxide 30 (21-32) mmol/L Anion Gap 12.7 (7-13) mEq/L BUN 31 H (7-18) mg/dL Creatinine 1.44 H (0.70-1.30) mg/dL Est Cr Clr Drug Dosing TNP Estimated GFR (MDRD) 47 BUN/Creatinine Ratio 21.5 (No establ ref range) Glucose 121 H (74-99) mg/dL Calcium 8.7 (8.5-10.1) mg/dL Magnesium 2.3 (1.8-2.4) mg/dL Total Bilirubin 0.8 (0.2-1.0) mg/dL AST 53 H (15-37) U/L ALT 18 (16-63) U/L Alkaline Phosphatase 271 H (46-116) U/L Troponin I < 0.017 (0.000-0.056) ng/mL Total Protein 8.1 (6.4-8.2) g/dL Albumin 3.7 (3.4-5.0) g/dL Globulin 4.4 Albumin/Globulin Ratio 0.8 TSH, Ultra Sensitive 2.41 (0.36-3.74) uIU/mL Urine Color (YELLOW) Urine Appearance (CLEAR) Urine pH (5.0-9.0) Ur Specific Chester (1.005-1.030) Urine Protein (NEGATIVE) Urine Glucose (UA) (NEGATIVE) Urine Ketones (NEGATIVE) Urine Occult Blood (NEGATIVE) Urine Nitrite (NEGATIVE) Urine Bilirubin (NEGATIVE) Urine Urobilinogen (0.2-1.0) mg/dL Ur Leukocyte Esterase (NEGATIVE) U Hyaline Cast (Auto) Urine RBC /HPF Urine WBC (0-5/HPF) /HPF Ur Epithelial Cells (NOT SEEN) /HPF Urine Bacteria (0-FEW/HPF) /HPF Urine Mucus (NOT SEEN) /LPF Urine Opiates Screen (NEGATIVE) Ur Oxycodone Screen (NEGATIVE) Urine Methadone Screen (NEGATIVE) Ur Barbiturates Screen (NEGATIVE) U Tricyclic Antidepress (NEGATIVE) Ur Phencyclidine Scrn (NEGATIVE) Ur Amphetamine Screen (NEGATIVE) U Methamphetamines Scrn (NEGATIVE) Urine MDMA Screen (NEGATIVE) U Benzodiazepines Scrn (NEGATIVE) Urine Cocaine Screen (NEGATIVE) U Marijuana (THC) Screen (NEGATIVE) Ethyl Alcohol < 3 (0) mg/dL SARS CoV-2 RNA Rapid PAULO (NEGATIVE) 02/27/20 02/27/20 02/27/20 Range/Units 18:35 18:35 19:58 WBC (5.0-10.0) 10^3/uL RBC (4.6-6.2) 10^6/uL Hgb (14.0-18.0) g/dL Hct (40.0-54.0) % MCV (80-100) fL MCH (27.0-34.0) pg MCHC (33.0-35.0) g/dL Plt Count (150-450) 10^3/uL Neut % (Auto) (42.2-75.2) % Lymph % (Auto) (20.5-50.1) % Lucas % (Auto) (2-8) % Eos % (Auto) (1.0-3.0) % Baso % (Auto) (0.0-1.0) % PT (9.0-12.0) SEC INR (0.9-1.2) APTT (22.0-34.0) SEC Sodium (136-145) mmol/L Potassium (3.5-5.1) mmol/L Chloride (98-107) mmol/L Carbon Dioxide (21-32) mmol/L Anion Gap (7-13) mEq/L BUN (7-18) mg/dL Creatinine (0.70-1.30) mg/dL Est Cr Clr Drug Dosing Estimated GFR (MDRD) BUN/Creatinine Ratio (No establ ref range) Glucose (74-99) mg/dL Calcium (8.5-10.1) mg/dL Magnesium (1.8-2.4) mg/dL Total Bilirubin (0.2-1.0) mg/dL AST (15-37) U/L ALT (16-63) U/L Alkaline Phosphatase (46-116) U/L Troponin I (0.000-0.056) ng/mL Total Protein (6.4-8.2) g/dL Albumin (3.4-5.0) g/dL Globulin Albumin/Globulin Ratio TSH, Ultra Sensitive (0.36-3.74) uIU/mL Urine Color Dark yellow (YELLOW) Urine Appearance Slightly cloudy (CLEAR) Urine pH 5.5 (5.0-9.0) Ur Specific Chester 1.020 (1.005-1.030) Urine Protein Trace H (NEGATIVE) Urine Glucose (UA) Negative (NEGATIVE) Urine Ketones Negative (NEGATIVE) Urine Occult Blood Negative (NEGATIVE) Urine Nitrite Negative (NEGATIVE) Urine Bilirubin Negative (NEGATIVE) Urine Urobilinogen 0.2 (0.2-1.0) mg/dL Ur Leukocyte Esterase Negative (NEGATIVE) U Hyaline Cast (Auto) Rare Urine RBC 0-5 /HPF Urine WBC 0-5 (0-5/HPF) /HPF Ur Epithelial Cells Rare (NOT SEEN) /HPF Urine Bacteria Rare (0-FEW/HPF) /HPF Urine Mucus Rare (NOT SEEN) /LPF Urine Opiates Screen Negative (NEGATIVE) Ur Oxycodone Screen Negative (NEGATIVE) Urine Methadone Screen Negative (NEGATIVE) Ur Barbiturates Screen Negative (NEGATIVE) U Tricyclic Antidepress Negative (NEGATIVE) Ur Phencyclidine Scrn Negative (NEGATIVE) Ur Amphetamine Screen Negative (NEGATIVE) U Methamphetamines Scrn Negative (NEGATIVE) Urine MDMA Screen Negative (NEGATIVE) U Benzodiazepines Scrn Negative (NEGATIVE) Urine Cocaine Screen Negative (NEGATIVE) U Marijuana (THC) Screen Negative (NEGATIVE) Ethyl Alcohol (0) mg/dL SARS CoV-2 RNA Rapid PAULO Negative (NEGATIVE) Result Diagrams: 02/27/20 18:13 02/27/20 18:13 Dez Results Last 24 hrs: Microbiology 02/27/20 18:13 Anaerobic Blood Culture - Final Blood - Venous - Lab Draw 02/27/20 17:52 Anaerobic Blood Culture - Final Blood - Venous - Problem List (1) Confusion SNOMED Code(s): 790960405 ICD Code: R41.0 - DISORIENTATION, UNSPECIFIED Status: Acute Current Visit: No (2) Hypertension SNOMED Code(s): 76488029 ICD Code: I10 - ESSENTIAL (PRIMARY) HYPERTENSION Status: Acute Current Visit: No (3) Hypoglycemia SNOMED Code(s): 003620525 ICD Code: E16.2 - HYPOGLYCEMIA, UNSPECIFIED Status: Acute Current Visit: No (4) BOWEN (obstructive sleep apnea) SNOMED Code(s): 28652297 ICD Code: G47.33 - OBSTRUCTIVE SLEEP APNEA (ADULT) (PEDIATRIC) Status: Acute Current Visit: No (5) Afib SNOMED Code(s): 06420452 ICD Code: I48.91 - UNSPECIFIED ATRIAL FIBRILLATION Status: Chronic Priority: Low Current Visit: No Problem List Initiated/Reviewed/Updated: Yes Orders Last 24hrs: Active Orders 24 hr Category Date Time Status Admission Diagnosis [ADT] Urgent ADT 02/27/20 19:51 Ordered Admission Status [Patient Status] [ADT] Routine ADT 02/27/20 19:51 Active Blood Glucose Check, Bedside [RC] ONETIME Care 02/27/20 17:37 Active Blood Glucose Check, Bedside [RC] ONETIME Care 02/27/20 17:59 Active Blood Glucose Check, Bedside [RC] QIDACANDBED Care 02/27/20 20:13 Active Cardiac Monitoring [RC] CONTINUOUS Care 02/27/20 20:15 Active Diabetes Education [RC] Click to Edit Care 02/27/20 20:14 Active EKG 12 Lead [EKG Documentation Completion] [RC] STAT Care 02/27/20 17:37 Active Glucose [Blood Glucose Check, Bedside] [RC] ONETIME Care 02/27/20 19:41 Active Intake and Output [RC] QSHIFT Care 02/27/20 20:15 Active NIH Stroke Scale [RC] ASDIRECTED Care 02/27/20 17:37 Active Notify Provider [RC] PRN Care 02/27/20 20:14 Active Oxygen Therapy [RC] PRN Care 02/27/20 20:14 Active Peripheral IV Care [RC] . DIRECTED Care 02/27/20 17:38 Active RT Aerosol Therapy [RC] ASDIRECTED Care 02/27/20 20:21 Active RT Post Treatment Assessment [RC] Click to Edit Care 02/27/20 20:21 Active RT Pre-Treatment Assessment [RC] Click to Edit Care 02/27/20 20:21 Active Up With Assistance [RC] ASDIRECTED Care 02/27/20 20:13 Active VTE/DVT Education [RC] PER UNIT ROUTINE Care 02/27/20 20:14 Active Vital Signs [RC] Q4H Care 02/27/20 20:14 Active Consistent Carbohydrate Diet [DIET] Diet 02/27/20 Dinner Active BASIC METABOLIC PANEL,BMP [CHEM] AM Lab 02/28/20 05:11 Ordered CBC W/O DIFF,HEMOGRAM [HEME] AM Lab 02/28/20 05:11 Ordered CULTURE BLOOD [BC] Stat Lab 02/27/20 17:52 Results CULTURE BLOOD [BC] Stat Lab 02/27/20 18:13 Results Acetaminophen [TylenoL] Med 02/27/20 20:13 Active 650 mg PO Q4H PRN Albuterol [Proventil HFA] Med 02/27/20 20:19 Ordered DOSE gm INH Q4H PRN Aspirin [Halfprin] Med 02/28/20 09:00 Ordered 81 mg PO DAILY Budesonide [Pulmicort] Med 02/28/20 07:00 Ordered 0.5 mg NEB BIDRT Calcium Carbonate [Calcium Carbonate] Med 02/27/20 21:00 Ordered 500 mg PO BID Carbidopa/Levodopa [Carbidopa-Levo 25-250 mg Odt] Med 02/27/20 21:00 Ordered 1 tab PO TID Dextrose 5%-0.45% NaCl [Dextrose 5%-1/2 NS] 1,000 ml Med 02/27/20 18:00 Active IV ASDIRECTED Dextrose 50% in Water Med 02/27/20 20:13 Active 25 ml IVPUSH ASDIRECTED PRN Docusate Sodium/Sennosides [Senna Plus] Med 02/27/20 20:13 Active 1 tab PO BEDTIME PRN Docusate Sodium/Sennosides [Senna Plus] Med 02/27/20 20:19 Active 2 tab PO BID PRN Flaxseed Oil [Flaxseed Oil] Med 02/27/20 21:00 Ordered 1,000 mg PO BID Formoterol [Perforomist] Med 02/28/20 07:00 Ordered 20 mcg NEB BIDRT Furosemide [Lasix] Med 02/28/20 09:00 Ordered 40 mg PO DAILY Gabapentin [Neurontin] Med 02/27/20 21:00 Ordered 300 mg PO BEDTIME Glucagon,Human Recombinant [GlucaGen] Med 02/27/20 20:13 Active 1 mg IM ONETIME PRN Heparin Sodium Med 02/27/20 22:00 Ordered 5,000 units SUBCUT Q8HR Insulin NPH Human Isophane [HumuLIN N] Med 02/27/20 21:00 Ordered 12 unit SQ BID Insulin Regular, Human [HumuLIN R] Med 02/27/20 21:00 Ordered 12 unit SUBCUT BID Levothyroxine Med 02/28/20 06:00 Ordered 25 mcg PO ACBREAKFAST Omeprazole Med 02/27/20 21:00 Ordered 20 mg PO BID Ondansetron [Zofran ODT] Med 02/27/20 20:13 Active 4 mg PO Q6H PRN Ondansetron [Zofran] Med 02/27/20 20:13 Active 4 mg IVPUSH Q6H PRN Simvastatin [Zocor] Med 02/27/20 21:00 Ordered 20 mg PO BEDTIME Sodium Chloride 0.9% [Saline Flush] Med 02/27/20 17:37 Active 10 ml FLUSH ASDIRECTED PRN Verapamil [Calan SR] Med 02/28/20 09:00 Ordered 240 mg PO DAILY lisinopriL [Prinivil] Med 02/27/20 21:00 Ordered 20 mg PO BID oxyCODONE Med 02/27/20 20:19 Ordered 5 mg PO Q4H PRN Blood Culture x2 Reflex Set [OM.PC] Stat Oth 02/27/20 17:37 Ordered Peripheral IV Insertion Adult [OM.PC] Stat Oth 02/27/20 17:37 Ordered Resuscitation Status Routine Resus Stat 02/27/20 20:13 Ordered Medication Orders Acetaminophen (Tylenol) 650 mg PO Q4H PRN PRN Reason: Pain Albuterol (Proventil Hfa) gm INH Q4H PRN PRN Reason: Wheezing Aspirin (Halfprin) 81 mg PO DAILY [facility] Budesonide (Pulmicort) 0.5 mg NEB BIDRT [facility] Dextrose/Water (Dextrose 50% In Water) 25 ml IVPUSH ASDIRECTED PRN PRN Reason: Hypoglycemia Furosemide (Lasix) 40 mg PO DAILY [facility] Gabapentin (Neurontin) 300 mg PO BEDTIME [facility] Glucagon (Glucagen) 1 mg IM ONETIME PRN PRN Reason: Hypoglycemia Heparin Sodium (Porcine) (Heparin Sodium) 5,000 units SUBCUT Q8HR [facility] Dextrose/Sodium Chloride (Dextrose 5%-1/2 Ns) 1,000 mls @ 150 mls/hr IV ASD IRECTED [facility] Last Admin: 02/27/20 18:21 Dose: 150 mls/hr Documented by: EDWIN Insulin Human NPH (Humulin N) 12 unit SQ BID [facility] Insulin Human Regular (Humulin R) 12 unit SUBCUT BID [facility] Levothyroxine Sodium (Levothyroxine) 25 mcg PO ACBREAKFAST [facility] Lisinopril (Prinivil) 20 mg PO BID [facility] Non-Formulary Medication (Calcium Carbonate [Calcium Carbonate]) 500 mg PO BID [facility] Non-Formulary Medication (Carbidopa/Levodopa [Carbidopa-Levo 25-250 Mg Odt]) 1 tab PO TID [facility] Non-Formulary Medication (Flaxseed Oil [Flaxseed Oil]) 1,000 mg PO BID [facility] Non-Formulary Medication (Formoterol [Perforomist]) 20 mcg NEB BIDRT [facility] Non-Formulary Medication (Simvastatin [Zocor]) 20 mg PO BEDTIME [facility] Omeprazole (Omeprazole) 20 mg PO BID [facility] Ondansetron HCl (Zofran Odt) 4 mg PO Q6H PRN PRN Reason: nausea, able to take PO Ondansetron HCl (Zofran) 4 mg IVPUSH Q6H PRN PRN Reason: Nausea/Vomiting Oxycodone HCl (Oxycodone) 5 mg PO Q4H PRN PRN Reason: Pain (moderate 4-6) Senna/Docusate Sodium (Senna Plus) 1 tab PO BEDTIME PRN PRN Reason: Constipation Senna/Docusate Sodium (Senna Plus) 2 tab PO BID PRN PRN Reason: Constipation Sodium Chloride (Saline Flush) 10 ml FLUSH ASDIRECTED PRN PRN Reason: Keep Vein Open Last Admin: 02/27/20 18:20 Dose: 10 ml Documented by: EDWIN Verapamil HCl (Calan Sr) 240 mg PO DAILY [facility] Assessment/Plan Comment:: Insulin-dependent diabetes mellitus: #Hypoglycemia: Patient brought to the ED with confusion after he was found wandering the neighbors field. Blood glucose was 30. Reports that he had taken his medications and eating a good meal. States that he takes 21 units of insulin with meals. Had hypoglycemic unawareness. Telemonitoring Provide snack at bedtime Hold insulin tonight Hypoglycemia protocol Cautious use of insulins for sliding scale Diabetic diet #Hypertension: Blood pressure elevated, likely due to acute stress Resume verapamil Continue lisinopril #BOWEN: CPAP at night #GERD Continue PPI #Hypothyroidism TSH is normal Continue Synthroid DVT prophylaxis: On warfarin, pharmacy to dose GI prophylaxis: PPI CODE STATUS: Full code per patient preference
[2020-02-27] MEDS ORDERED: amLODIPine 5 MG Tab PO ONE (20:40)
[2020-02-27] MEDS ORDERED: Gabapentin 300 MG Cap PO SCH (21:00)
[2020-02-27] MEDS ORDERED: Non-Formulary Medication 1 Each (Flaxseed Oil [Flaxseed Oil] 1,000 MG) PO SCH (21:00)
[2020-02-27] MEDS ORDERED: Insulin Regular, Human 100 Units/ML 3 ML Vial SUBCUT SCH (21:00)
[2020-02-27] MEDS ORDERED: Simvastatin 10 MG Tab PO SCH (21:00)
[2020-02-27] MEDS ORDERED: Insulin Isophane NPH, Human 100 Units/ML 3 ML Vial SQ SCH (21:00)
[2020-02-27] MEDS: Carbidopa/Levodopa 25-250 MG Tab PO SCH (21:13)
[2020-02-27] MEDS: Omeprazole 20 MG Cap.CR PO SCH (21:14)
[2020-02-27] MEDS: Lisinopril 20 MG Tab PO SCH (21:14)
[2020-02-27] MEDS: Calcium Carbonate 500 MG Tab.Chew PO SCH (21:15)
[2020-02-27] MEDS: Heparin Sodium 5,000 Units/ML Vial SUBCUT SCH (21:15)
[2020-02-27] MEDS: Insulin Lispro 100 Units/ML 3 ML Vial SUBCUT SCH (21:15)
[2020-02-28] MEDS: Dextrose 5%-0.45% NaCl 1,000 ML IV SCH (03:40)
[2020-02-28] MEDS: Heparin Sodium 5,000 Units/ML Vial SUBCUT SCH ×2 (05:47→15:30)
[2020-02-28] MEDS ORDERED: Levothyroxine 25 MCG Tab PO SCH (06:00)
[2020-02-28] MEDS ORDERED: Budesonide 0.5 MG/2 ML Neb Susp NEB SCH (07:00)
[2020-02-28] MEDS ORDERED: Non-Formulary Medication 1 Each (Formoterol [Perforomist] 20 MCG) NEB SCH (07:00)
[2020-02-28 07:11] LABS: ANION GAP 11.5 mEq/L (7-13); CHLORIDE,CL 105 mmol/L (98-107); SODIUM,NA 141 mmol/L (136-145)
[2020-02-28] MEDS ORDERED: Insulin Regular, Human 100 Units/ML 3 ML Vial SUBCUT SCH (08:00)
[2020-02-28] MEDS ORDERED: Insulin Isophane NPH, Human 100 Units/ML 3 ML Vial SQ SCH (08:00)
[2020-02-28] MEDS ORDERED: Furosemide 40 MG Tab PO SCH (09:00)
[2020-02-28] MEDS ORDERED: Aspirin 81 MG Tab.EC PO SCH (09:00)
[2020-02-28] MEDS ORDERED: Verapamil 240 MG Tab.ER PO SCH (09:00)
[2020-02-28] MEDS: Carbidopa/Levodopa 25-250 MG Tab PO SCH ×2 (10:20→13:13)
[2020-02-28] MEDS: Lisinopril 20 MG Tab PO SCH (10:20)
[2020-02-28] MEDS: Calcium Carbonate 500 MG Tab.Chew PO SCH (10:20)
[2020-02-28] MEDS: Omeprazole 20 MG Cap.CR PO SCH (10:20)
[2020-02-28] MEDS: Insulin Lispro 100 Units/ML 3 ML Vial SUBCUT SCH ×2 (12:39→13:12)
[2020-02-28 13:28] VITALS: BP 147/74; PULSE 78
[2020-02-28] MEDS ORDERED: Warfarin 2.5 MG Tab PO ONE (14:00)
--- NOTE | 2020-02-28 15:19 | PCM.DCSUM1 ---
Discharge Summary - Hospital Course Free Text/Narrative:: Patient is a 79-year-old male with medical history significant for diabetes on insulin regimen, dyslipidemia, hypertension, chronic atrial fibrillation on anticoagulation with warfarin, BOWEN on CPAP, pulmonary fibrosis, and rheumatoid arthritis who was admitted for Acute metabolic encephalopathy due to hypoglycemia. Patient with blood glucose was 30 in the ED triage. He was started on D5 with improvement of his blood glucose. Patient reports that he had taken 20 units of insulin with meals in the morning. Was confused and did not know where he was. Patient glucose improved. He remained neurologically intact. He is being discharged home to continue 12 units of NPH and 12 units of regular insulin 3 times daily. He is to discontinue his 20 units insulins. He is to follow-up with PCP with blood glucose log. He is to check his blood glucose 4 times daily. HPI Initial Comments: Patient is a 79-year-old male with medical history significant for diabetes on insulin regimen, dyslipidemia, hypertension, chronic atrial fibrillation on anticoagulation with warfarin, BOWEN on CPAP, pulmonary fibrosis, and rheumatoid arthritis who was brought to the ED by family for confusion. Patient's at bedside reports that patient called the son today. Vital signs responded, patient did not say anything. Son called back and patient asked who it was. states that he was asleep patient did not know who the son was. Subsequently, patient stated that he was lost. Patient had wandered from their farm to the neighbor's and was working on that land. They report that when they checked patient's blood sugar, blood glucose was found to be 30 in the triage. Patient reports that he took 21 units of insulin and he ate a good breakfast. Reports that he normally feels hypoglycemic symptoms around blood glucose of 60s to 70s. However, today he states that he did not feel any symptoms. He denies any focal weakness or loss of sensation, denies any vision changes, tinnitus, headache, vision changes, nausea, vomiting, diarrhea, constipation, chest pain, shortness of breath, or any new symptoms. Diagnosis: Stroke: No - Discharge Data Discharge Date: 02/28/20 Discharge Disposition: Home, Self-Care 01 Condition: Stable - Referral to Home Health Primary Care Physician: Robert Krause MD - Discharge Diagnosis/Problem(s) (1) Confusion SNOMED Code(s): 922969016 ICD Code: R41.0 - DISORIENTATION, UNSPECIFIED Status: Acute Current Visit: No (2) Hypertension SNOMED Code(s): 11179726 ICD Code: I10 - ESSENTIAL (PRIMARY) HYPERTENSION Status: Acute Current Visit: No (3) Hypoglycemia SNOMED Code(s): 428970394 ICD Code: E16.2 - HYPOGLYCEMIA, UNSPECIFIED Status: Acute Current Visit: No (4) BOWEN (obstructive sleep apnea) SNOMED Code(s): 00538950 ICD Code: G47.33 - OBSTRUCTIVE SLEEP APNEA (ADULT) (PEDIATRIC) Status: Acute Current Visit: No (5) Afib SNOMED Code(s): 21643152 ICD Code: I48.91 - UNSPECIFIED ATRIAL FIBRILLATION Status: Chronic Bria ority: Low Current Visit: No - Discharge Plan *PRESCRIPTION DRUG MONITORING PROGRAM REVIEWED*: Not Applicable *COPY OF PRESCRIPTION DRUG MONITORING REPORT IN PATIENT MODESTA: Not Applicable Home Medications: Home Meds Aspirin [Adult Low Dose Aspirin EC] 81 mg PO DAILY 08/13/14 [History] Calcium Carbonate 500 mg PO BID 08/13/14 [History] Furosemide 40 mg PO DAILY 08/13/14 [History] Lisinopril 20 mg PO BID 08/13/14 [History] Omeprazole 20 mg PO BID 08/13/14 [History] Simvastatin [Zocor] 20 mg PO BEDTIME 08/13/14 [History] Verapamil [Calan SR] 240 mg PO DAILY 08/13/14 [History] Insulin Regular, Human [HumuLIN R] 12 units SUBCUT BID 08/14/14 [History] Warfarin [Coumadin] 7.5 mg PO DAILY 08/14/14 [History] Albuterol [Proventil HFA] 2 puff INH Q4H PRN 06/20/15 [History] Budesonide [Pulmicort] 0.5 mg NEB BIDRT 06/20/15 [History] Formoterol [Perforomist] 20 mcg NEB BIDRT 06/20/15 [History] Sennosides/Docusate Sodium [Senna-Docusate Sodium] 2 tab PO BID PRN 06/20/15 [History] Acetaminophen 1,000 mg PO Q8H PRN 06/23/18 [History] Carbidopa/Levodopa [Carbidopa-Levo 25-250 mg Odt] 1 tab PO TID 06/23/18 [History] Flaxseed Oil 1,000 mg PO BID 06/23/18 [History] Gabapentin [Neurontin] 300 mg PO BEDTIME 06/23/18 [History] Insulin Isophane NPH, Human [HumuLIN N] 12 units SQ BID 06/23/18 [History] Levothyroxine 25 mcg PO ACBREAKFAST 06/23/18 [History] Turmeric Root Extract [Turmeric Curcumin] 500 mg PO DAILY 06/23/18 [History] Warfarin [Coumadin] 0.5 tab PO DAILY 06/23/18 [History] oxyCODONE 5 mg PO Q4H PRN 06/23/18 [History] sulfaSALAzine 500 mg PO BID 06/23/18 [History] Patient Handouts: Preventing Hypoglycemia, Type 2 Diabetes Mellitus, Self Care, Adult, [id number], Blood Glucose Monitoring, Adult, Hypoglycemia, [id number] Referrals: Robert Krause MD [Primary Care Provider] - - Discharge Summary/Plan Comment DC Time >30 min.: Yes - General Info Date of Service: 02/28/20 Admission Dx/Problem (Free Text: Admission Diagnosis/Problem Admission Diagnosis/Problem Hypoglycemia Subjective Update: Patient blood glucose improved today. Alert and oriented. Denies any chest pain, shortness of breath, fevers, chills, nausea, vomiting, diarrhea, constipation, dysuria, hematuria, or any new symptoms. I discussed with patient at bedside that he would need to check his blood glucose 4 times a day with meals and at bedtime. He is to follow-up with PCP. He is to cut down on his insulins to 12 units of regular insulin and 12 units of NPH. He is to call PCPs office if blood sugars are elevated. He is to check BG four times daily, with meals and at bedtime. - Patient Data Vitals - Most Recent: Last Vital Signs Temp 99.4 F 02/28/20 11:10 Pulse 78 02/28/20 11:10 Resp 18 02/28/20 11:10 BP 147/74 H 02/28/20 11:10 Pulse Ox 93 L 02/28/20 11:10 Weight - Most Recent: 217 lb I&O - Last 24 hours: Intake & Output 02/28/20 02/28/20 02/28/20 06:59 14:59 22:59 Intake Total 1000 Output Total 1100 Balance 1000 -1100 Lab Results - Last 24 hrs: Laboratory Results - last 24 hr 02/27/20 02/27/20 02/27/20 Range/Units 18:13 18:13 18:13 WBC 7.6 (5.0-10.0) 10^3/uL RBC 4.29 L (4.6-6.2) 10^6/uL Hgb 14.4 D (14.0-18.0) g/dL Hct 43.6 (40.0-54.0) % MCV 101.6 H (80-100) fL MCH 33.6 (27.0-34.0) pg MCHC 33.0 (33.0-35.0) g/dL Plt Count 161 (150-450) 10^3/uL Neut % (Auto) 81.6 H (42.2-75.2) % Lymph % (Auto) 8.1 L (20.5-50.1) % [place] % (Auto) 8.9 H (2-8) % Eos % (Auto) 1.3 (1.0-3.0) % Baso % (Auto) 0.1 (0.0-1.0) % PT 17.4 H (9.0-12.0) SEC INR 1.8 H (0.9-1.2) APTT 30.6 (22.0-34.0) SEC Sodium 141 (136-145) mmol/L Potassium 3.7 (3.5-5.1) mmol/L Chloride 102 (98-107) mmol/L Carbon Dioxide 30 (21-32) mmol/L Anion Gap 12.7 (7-13) mEq/L BUN 31 H (7-18) mg/dL Creatinine 1.44 H (0.70-1.30) mg/dL Est Cr Clr Drug Dosing TNP Estimated GFR (MDRD) 47 BUN/Creatinine Ratio 21.5 (No establ ref range) Glucose 121 H (74-99) mg/dL POC Glucose (83-110) mg/dl Calcium 8.7 (8.5-10.1) mg/dL Magnesium 2.3 (1.8-2.4) mg/dL Total Bilirubin 0.8 (0.2-1.0) mg/dL AST 53 H (15-37) U/L ALT 18 (16-63) U/L Alkaline Phosphatase 271 H (46-116) U/L Troponin I < 0.017 (0.000-0.056) ng/mL Total Protein 8.1 (6.4-8.2) g/dL Albumin 3.7 (3.4-5.0) g/dL Globulin 4.4 Albumin/Globulin Ratio 0.8 TSH, Ultra Sensitive 2.41 (0.36-3.74) uIU/mL Urine Color (YELLOW) Urine Appearance (CLEAR) Urine pH (5.0-9.0) Ur Specific [place] (1.005-1.030) Urine Protein (NEGATIVE) Urine Glucose (UA) (NEGATIVE) Urine Ketones (NEGATIVE) Urine Occult Blood (NEGATIVE) Urine Nitrite (NEGATIVE) Urine Bilirubin (NEGATIVE) Urine Urobilinogen (0.2-1.0) mg/dL Ur Leukocyte Esterase (NEGATIVE) U Hyaline Cast (Auto) Urine RBC /HPF Urine WBC (0-5/HPF) /HPF Ur Epithelial Cells (NOT SEEN) /HPF Urine Bacteria (0-FEW/HPF) /HPF Urine Mucus (NOT SEEN) /LPF Urine Opiates Screen (NEGATIVE) Ur Oxycodone Screen (NEGATIVE) Urine Methadone Screen (NEGATIVE) Ur Barbiturates Screen (NEGATIVE) U Tricyclic Antidepress (NEGATIVE) Ur Phencyclidine Scrn (NEGATIVE) Ur Amphetamine Screen (NEGATIVE) U Methamphetamines Scrn (NEGATIVE) Urine MDMA Screen (NEGATIVE) U Benzodiazepines Scrn (NEGATIVE) Urine Cocaine Screen (NEGATIVE) U Marijuana (THC) Screen (NEGATIVE) Ethyl Alcohol < 3 (0) mg/dL SARS CoV-2 RNA Rapid PAULO (NEGATIVE) 02/27/20 02/27/20 02/27/20 Range/Units 18:35 18:35 19:58 WBC (5.0-10.0) 10^3/uL RBC (4.6-6.2) 10^6/uL Hgb (14.0-18.0) g/dL Hct (40.0-54.0) % MCV (80-100) fL MCH (27.0-34.0) pg MCHC (33.0-35.0) g/dL Plt Count (150-450) 10^3/uL Neut % (Auto) (42.2-75.2) % Lymph % (Auto) (20.5-50.1) % [place] % (Auto) (2-8) % Eos % (Auto) (1.0-3.0) % Baso % (Auto) (0.0-1.0) % PT (9.0-12.0) SEC INR (0.9-1.2) APTT (22.0-34.0) SEC Sodium (136-145) mmol/L Potassium (3.5-5.1) mmol/L Chloride (98-107) mmol/L Carbon Dioxide (21-32) mmol/L Anion Gap (7-13) mEq/L BUN (7-18) mg/dL Creatinine (0.70-1.30) mg/dL Est Cr Clr Drug Dosing Estimated GFR (MDRD) BUN/Creatinine Ratio (No establ ref range) Glucose (74-99) mg/dL POC Glucose (83-110) mg/dl Calcium (8.5-10.1) mg/dL Magnesium (1.8-2.4) mg/dL Total Bilirubin (0.2-1.0) mg/dL AST (15-37) U/L ALT (16-63) U/L Alkaline Phosphatase (46-116) U/L Troponin I (0.000-0.056) ng/mL Total Protein (6.4-8.2) g/dL Albumin (3.4-5.0) g/dL Globulin Albumin/Globulin Ratio TSH, Ultra Sensitive (0.36-3.74) uIU/mL Urine Color Dark yellow (YELLOW) Urine Appearance Slightly cloudy (CLEAR) Urine pH 5.5 (5.0-9.0) Ur Specific [place] 1.020 (1.005-1.030) Urine Protein Trace H (NEGATIVE) Urine Glucose (UA) Negative (NEGATIVE) Urine Ketones Negative (NEGATIVE) Urine Occult Blood Negative (NEGATIVE) Urine Nitrite Negative (NEGATIVE) Urine Bilirubin Negative (NEGATIVE) Urine Urobilinogen 0.2 (0.2-1.0) mg/dL Ur Leukocyte Esterase Negative (NEGATIVE) U Hyaline Cast (Auto) Rare Urine RBC 0-5 /HPF Urine WBC 0-5 (0-5/HPF) /HPF Ur Epithelial Cells Rare (NOT SEEN) /HPF Urine Bacteria Rare (0-FEW/HPF) /HPF Urine Mucus Rare (NOT SEEN) /LPF Urine Opiates Screen Negative (NEGATIVE) Ur Oxycodone Screen Negative (NEGATIVE) Urine Methadone Screen Negative (NEGATIVE) Ur Barbiturates Screen Negative (NEGATIVE) U Tricyclic Antidepress Negative (NEGATIVE) Ur Phencyclidine Scrn Negative (NEGATIVE) Ur Amphetamine Screen Negative (NEGATIVE) U Methamphetamines Scrn Negative (NEGATIVE) Urine MDMA Screen Negative (NEGATIVE) U Benzodiazepines Scrn Negative (NEGATIVE) Urine Cocaine Screen Negative (NEGATIVE) U Marijuana (THC) Screen Negative (NEGATIVE) Ethyl Alcohol (0) mg/dL SARS CoV-2 RNA Rapid PAULO Negative (NEGATIVE) 02/27/20 02/27/20 02/27/20 Range/Units 20:39 21:48 23:05 WBC (5.0-10.0) 10^3/uL RBC (4.6-6.2) 10^6/uL Hgb (14.0-18.0) g/dL Hct (40.0-54.0) % MCV (80-100) fL MCH (27.0-34.0) pg MCHC (33.0-35.0) g/dL Plt Count (150-450) 10^3/uL Neut % (Auto) (42.2-75.2) % Lymph % (Auto) (20.5-50.1) % [place] % (Auto) (2-8) % Eos % (Auto) (1.0-3.0) % Baso % (Auto) (0.0-1.0) % PT (9.0-12.0) SEC INR (0.9-1.2) APTT (22.0-34.0) SEC Sodium (136-145) mmol/L Potassium (3.5-5.1) mmol/L Chloride (98-107) mmol/L Carbon Dioxide (21-32) mmol/L Anion Gap (7-13) mEq/L BUN (7-18) mg/dL Creatinine (0.70-1.30) mg/dL Est Cr Clr Drug Dosing Estimated GFR (MDRD) BUN/Creatinine Ratio (No establ ref range) Glucose (74-99) mg/dL POC Glucose 41 L* 77 L 169 H (83-110) mg/dl Calcium (8.5-10.1) mg/dL Magnesium (1.8-2.4) mg/dL Total Bilirubin (0.2-1.0) mg/dL AST (15-37) U/L ALT (16-63) U/L Alkaline Phosphatase (46-116) U/L Troponin I (0.000-0.056) ng/mL Total Protein (6.4-8.2) g/dL Albumin (3.4-5.0) g/dL Globulin Albumin/Globulin Ratio TSH, Ultra Sensitive (0.36-3.74) uIU/mL Urine Color (YELLOW) Urine Appearance (CLEAR) Urine pH (5.0-9.0) Ur Specific [place] (1.005-1.030) Urine Protein (NEGATIVE) Urine Glucose (UA) (NEGATIVE) Urine Ketones (NEGATIVE) Urine Occult Blood (NEGATIVE) Urine Nitrite (NEGATIVE) Urine Bilirubin (NEGATIVE) Urine Urobilinogen (0.2-1.0) mg/dL Ur Leukocyte Esterase (NEGATIVE) U Hyaline Cast (Auto) Urine RBC /HPF Urine WBC (0-5/HPF) /HPF Ur Epithelial Cells (NOT SEEN) /HPF Urine Bacteria (0-FEW/HPF) /HPF Urine Mucus (NOT SEEN) /LPF Urine Opiates Screen (NEGATIVE) Ur Oxycodone Screen (NEGATIVE) Urine Methadone Screen (NEGATIVE) Ur Barbiturates Screen (NEGATIVE) U Tricyclic Antidepress (NEGATIVE) Ur Phencyclidine Scrn (NEGATIVE) Ur Amphetamine Screen (NEGATIVE) U Methamphetamines Scrn (NEGATIVE) Urine MDMA Screen (NEGATIVE) U Benzodiazepines Scrn (NEGATIVE) Urine Cocaine Screen (NEGATIVE) U Marijuana (THC) Screen (NEGATIVE) Ethyl Alcohol (0) mg/dL SARS CoV-2 RNA Rapid PAULO (NEGATIVE) 02/28/20 02/28/20 02/28/20 Range/Units 03:45 06:28 06:28 WBC 5.7 (5.0-10.0) 10^3/uL RBC 3.54 L (4.6-6.2) 10^6/uL Hgb 11.9 L D (14.0-18.0) g/dL Hct 35.9 L (40.0-54.0) % MCV 101.4 H (80-100) fL MCH 33.6 (27.0-34.0) pg MCHC 33.1 (33.0-35.0) g/dL Plt Count 141 L (150-450) 10^3/uL Neut % (Auto) (42.2-75.2) % Lymph % (Auto) (20.5-50.1) % [place] % (Auto) (2-8) % Eos % (Auto) (1.0-3.0) % Baso % (Auto) (0.0-1.0) % PT (9.0-12.0) SEC INR (0.9-1.2) APTT (22.0-34.0) SEC Sodium 141 (136-145) mmol/L Potassium 4.5 (3.5-5.1) mmol/L Chloride 105 (98-107) mmol/L Carbon Dioxide 29 (21-32) mmol/L Anion Gap 11.5 (7-13) mEq/L BUN 21 H (7-18) mg/dL Creatinine 0.97 (0.70-1.30) mg/dL Est Cr Clr Drug Dosing 63.76 Estimated GFR (MDRD) > 60 BUN/Creatinine Ratio (No establ ref range) Glucose 142 H (74-99) mg/dL POC Glucose 142 H (83-110) mg/dl Calcium 8.4 L (8.5-10.1) mg/dL Magnesium (1.8-2.4) mg/dL Total Bilirubin (0.2-1.0) mg/dL AST (15-37) U/L ALT (16-63) U/L Alkaline Phosphatase (46-116) U/L Troponin I (0.000-0.056) ng/mL Total Protein (6.4-8.2) g/dL Albumin (3.4-5.0) g/dL Globulin Albumin/Globulin Ratio TSH, Ultra Sensitive (0.36-3.74) uIU/mL Urine Color (YELLOW) Urine Appearance (CLEAR) Urine pH (5.0-9.0) Ur Specific [place] (1.005-1.030) Urine Protein (NEGATIVE) Urine Glucose (UA) (NEGATIVE) Urine Ketones (NEGATIVE) Urine Occult Blood (NEGATIVE) Urine Nitrite (NEGATIVE) Urine Bilirubin (NEGATIVE) Urine Urobilinogen (0.2-1.0) mg/dL Ur Leukocyte Esterase (NEGATIVE) U Hyaline Cast (Auto) Urine RBC /HPF Urine WBC (0-5/HPF) /HPF Ur Epithelial Cells (NOT SEEN) /HPF Urine Bacteria (0-FEW/HPF) /HPF Urine Mucus (NOT SEEN) /LPF Urine Opiates Screen (NEGATIVE) Ur Oxycodone Screen (NEGATIVE) Urine Methadone Screen (NEGATIVE) Ur Barbiturates Screen (NEGATIVE) U Tricyclic Antidepress (NEGATIVE) Ur Phencyclidine Scrn (NEGATIVE) Ur Amphetamine Screen (NEGATIVE) U Methamphetamines Scrn (NEGATIVE) Urine MDMA Screen (NEGATIVE) U Benzodiazepines Scrn (NEGATIVE) Urine Cocaine Screen (NEGATIVE) U Marijuana (THC) Screen (NEGATIVE) Ethyl Alcohol (0) mg/dL SARS CoV-2 RNA Rapid PAULO (NEGATIVE) 02/28/20 02/28/20 02/28/20 Range/Units 06:28 07:57 11:07 WBC (5.0-10.0) 10^3/uL RBC (4.6-6.2) 10^6/uL Hgb (14.0-18.0) g/dL Hct (40.0-54.0) % MCV (80-100) fL MCH (27.0-34.0) pg MCHC (33.0-35.0) g/dL Plt Count (150-450) 10^3/uL Neut % (Auto) (42.2-75.2) % Lymph % (Auto) (20.5-50.1) % [place] % (Auto) (2-8) % Eos % (Auto) (1.0-3.0) % Baso % (Auto) (0.0-1.0) % PT 17.9 H (9.0-12.0) SEC INR 1.9 H (0.9-1.2) APTT (22.0-34.0) SEC Sodium (136-145) mmol/L Potassium (3.5-5.1) mmol/L Chloride (98-107) mmol/L Carbon Dioxide (21-32) mmol/L Anion Gap (7-13) mEq/L BUN (7-18) mg/dL Creatinine (0.70-1.30) mg/dL Est Cr Clr Drug Dosing Estimated GFR (MDRD) BUN/Creatinine Ratio (No establ ref range) Glucose (74-99) mg/dL POC Glucose 152 H 208 H (83-110) mg/dl Calcium (8.5-10.1) mg/dL Magnesium (1.8-2.4) mg/dL Total Bilirubin (0.2-1.0) mg/dL AST (15-37) U/L ALT (16-63) U/L Alkaline Phosphatase (46-116) U/L Troponin I (0.000-0.056) ng/mL Total Protein (6.4-8.2) g/dL Albumin (3.4-5.0) g/dL Globulin Albumin/Globulin Ratio TSH, Ultra Sensitive (0.36-3.74) uIU/mL Urine Color (YELLOW) Urine Appearance (CLEAR) Urine pH (5.0-9.0) Ur Specific [place] (1.005-1.030) Urine Protein (NEGATIVE) Urine Glucose (UA) (NEGATIVE) Urine Ketones (NEGATIVE) Urine Occult Blood (NEGATIVE) Urine Nitrite (NEGATIVE) Urine Bilirubin (NEGATIVE) Urine Urobilinogen (0.2-1.0) mg/dL Ur Leukocyte Esterase (NEGATIVE) U Hyaline Cast (Auto) Urine RBC /HPF Urine WBC (0-5/HPF) /HPF Ur Epithelial Cells (NOT SEEN) /HPF Urine Bacteria (0-FEW/HPF) /HPF Urine Mucus (NOT SEEN) /LPF Urine Opiates Screen (NEGATIVE) Ur Oxycodone Screen (NEGATIVE) Urine Methadone Screen (NEGATIVE) Ur Barbiturates Screen (NEGATIVE) U Tricyclic Antidepress (NEGATIVE) Ur Phencyclidine Scrn (NEGATIVE) Ur Amphetamine Screen (NEGATIVE) U Methamphetamines Scrn (NEGATIVE) Urine MDMA Screen (NEGATIVE) U Benzodiazepines Scrn (NEGATIVE) Urine Cocaine Screen (NEGATIVE) U Marijuana (THC) Screen (NEGATIVE) Ethyl Alcohol (0) mg/dL SARS CoV-2 RNA Rapid PAULO (NEGATIVE) 02/28/20 Range/Units 12:04 WBC (5.0-10.0) 10^3/uL RBC (4.6-6.2) 10^6/uL Hgb (14.0-18.0) g/dL Hct (40.0-54.0) % MCV (80-100) fL MCH (27.0-34.0) pg MCHC (33.0-35.0) g/dL Plt Count (150-450) 10^3/uL Neut % (Auto) (42.2-75.2) % Lymph % (Auto) (20.5-50.1) % [place] % (Auto) (2-8) % Eos % (Auto) (1.0-3.0) % Baso % (Auto) (0.0-1.0) % PT (9.0-12.0) SEC INR (0.9-1.2) APTT (22.0-34.0) SEC Sodium (136-145) mmol/L Potassium (3.5-5.1) mmol/L Chloride (98-107) mmol/L Carbon Dioxide (21-32) mmol/L Anion Gap (7-13) mEq/L BUN (7-18) mg/dL Creatinine (0.70-1.30) mg/dL Est Cr Clr Drug Dosing Estimated GFR (MDRD) BUN/Creatinine Ratio (No establ ref range) Glucose (74-99) mg/dL POC Glucose 181 H (83-110) mg/dl Calcium (8.5-10.1) mg/dL Magnesium (1.8-2.4) mg/dL Total Bilirubin (0.2-1.0) mg/dL AST (15-37) U/L ALT (16-63) U/L Alkaline Phosphatase (46-116) U/L Troponin I (0.000-0.056) ng/mL Total Protein (6.4-8.2) g/dL Albumin (3.4-5.0) g/dL Globulin Albumin/Globulin Ratio TSH, Ultra Sensitive (0.36-3.74) uIU/mL Urine Color (YELLOW) Urine Appearance (CLEAR) Urine pH (5.0-9.0) Ur Specific [place] (1.005-1.030) Urine Protein (NEGATIVE) Urine Glucose (UA) (NEGATIVE) Urine Ketones (NEGATIVE) Urine Occult Blood (NEGATIVE) Urine Nitrite (NEGATIVE) Urine Bilirubin (NEGATIVE) Urine Urobilinogen (0.2-1.0) mg/dL Ur Leukocyte Esterase (NEGATIVE) U Hyaline Cast (Auto) Urine RBC /HPF Urine WBC (0-5/HPF) /HPF Ur Epithelial Cells (NOT SEEN) /HPF Urine Bacteria (0-FEW/HPF) /HPF Urine Mucus (NOT SEEN) /LPF Urine Opiates Screen (NEGATIVE) Ur Oxycodone Screen (NEGATIVE) Urine Methadone Screen (NEGATIVE) Ur Barbiturates Screen (NEGATIVE) U Tricyclic Antidepress (NEGATIVE) Ur Phencyclidine Scrn (NEGATIVE) Ur Amphetamine Screen (NEGATIVE) U Methamphetamines Scrn (NEGATIVE) Urine MDMA Screen (NEGATIVE) U Benzodiazepines Scrn (NEGATIVE) Urine Cocaine Screen (NEGATIVE) U Marijuana (THC) Screen (NEGATIVE) Ethyl Alcohol (0) mg/dL SARS CoV-2 RNA Rapid PAULO (NEGATIVE) SURESH Results - Last 24 hrs: Microbiology 02/27/20 18:13 Anaerobic Blood Culture - Final Blood - Venous - Lab Draw 02/27/20 17:52 Anaerobic Blood Culture - Final Blood - Venous Med Orders - Current: Current Medications Acetaminophen (Tylenol) 650 mg PO Q4H PRN PRN Reason: Pain Albuterol (Proventil Hfa) 0 gm INH Q4H PRN PRN Reason: Wheezing Aspirin (Halfprin) 81 mg PO DAILY [facility] Last Admin: 02/28/20 10:19 Dose: 81 mg Documented by: Budesonide (Pulmicort) 0.5 mg NEB BIDRT [facility] Last Admin: 02/28/20 07:30 Dose: 0.5 mg Documented by: Calcium Carbonate/Glycine (Tums) 500 mg PO BID [facility] Last Admin: 02/28/20 10:20 Dose: 500 mg Documented by: Carbidopa/Levodopa (Sinemet 25-250 Mg) 1 tab PO TID [facility] Last Admin: 02/28/20 13:13 Dose: 1 tab Documented by: Dextrose/Water (Dextrose 50% In Water) 25 ml IVPUSH ASDIRECTED PRN PRN Reason: Hypoglycemia Last Admin: 02/27/20 20:48 Dose: 25 ml Documented by: Furosemide (Lasix) 40 mg PO DAILY [facility] Last Admin: 02/28/20 10:20 Dose: 40 mg Documented by: Gabapentin (Neurontin) 300 mg PO BEDTIME [facility] Last Admin: 02/27/20 21:14 Dose: 300 mg Documented by: Glucagon (Glucagen) 1 mg IM ONETIME PRN PRN Reason: Hypoglycemia Heparin Sodium (Porcine) (Heparin Sodium) 5,000 units SUBCUT Q8HR [facility] Last Admin: 02/28/20 05:47 Dose: 5,000 units Documented by: Dextrose/Sodium Chloride (Dextrose 5%-1/2 Ns) 1,000 mls @ 150 mls/hr IV ASDIRECTED [facility] Last Admin: 02/28/20 03:40 Dose: 150 mls/hr Documented by: Insulin Human Lispro (Humalog) 0 unit SUBCUT QIDACANDBED [facility]; Protocol Last Admin: 02/28/20 13:12 Dose: 1 unit Documented by: Insulin Human NPH (Humulin N) 12 unit SQ BIDMEALS [facility] Last Admin: 02/28/20 12:39 Dose: Not Given Documented by: Insulin Human Regular (Humulin R) 12 unit SUBCUT BIDMEALS [facility] Last Admin: 02/28/20 12:39 Dose: Not Given Documented by: Levothyroxine Sodium (Levothyroxine) 25 mcg PO ACBREAKFAST [facility] Last Admin: 02/28/20 05:47 Dose: 25 mcg Documented by: Lisinopril (Prinivil) 20 mg PO BID [facility] Last Admin: 02/28/20 10:20 Dose: 20 mg Documented by: Non-Formulary Medication (Flaxseed Oil [Flaxseed Oil]) 1,000 mg PO BID [facility] Non-Formulary Medication (Formoterol [Perforomist]) 20 mcg NEB BIDRT [facility] Omeprazole (Omeprazole) 20 mg PO BID [facility] Last Admin: 02/28/20 10:20 Dose: 20 mg Documented by: Ondansetron HCl (Zofran Odt) 4 mg PO Q6H PRN PRN Reason: nausea, able to take PO Ondansetron HCl (Zofran) 4 mg IVPUSH Q6H PRN PRN Reason: Nausea/Vomiting Oxycodone HCl (Oxycodone) 5 mg PO Q4H PRN PRN Reason: Pain (moderate 4-6) Senna/Docusate Sodium (Senna Plus) 1 tab PO BEDTIME PRN PRN Reason: Constipation Senna/Docusate Sodium (Senna Plus) 2 tab PO BID PRN PRN Reason: Constipation Simvastatin (Zocor) 20 mg PO BEDTIME [facility] Last Admin: 02/27/20 21:14 Dose: 20 mg Documented by: Sodium Chloride (Saline Flush) 10 ml FLUSH ASDIRECTED PRN PRN Reason: Keep Vein Open Last Admin: 02/27/20 18:20 Dose: 10 ml Documented by: Verapamil HCl (Calan Sr) 240 mg PO DAILY [facility] Last Admin: 02/28/20 10:19 Dose: 240 mg Documented by: Warfarin Sodium (Pharmacy To Dose - Warfarin) 1 dose .XX ASDIRECTED [facility] Discontinued Medications Amlodipine Besylate (Norvasc) 5 mg PO ONETIME ONE Stop: 02/27/20 20:41 Last Admin: 02/27/20 21:14 Dose: 5 mg Documented by: Dextrose/Water (Dextrose 50% In Water) 50 ml IVPUSH ONETIME ONE Stop: 02/27/20 17:53 Last Admin: 02/27/20 17:52 Dose: 50 ml Documented by: Dextrose/Water (Dextrose 50% In Water) Confirm Administered Dose 50 ml .ROUTE .STK-MED ONE Stop: 02/27/20 17:53 Last Admin: 02/27/20 18:20 Dose: Not Given Documented by: Insulin Human NPH (Humulin N) 12 unit SQ BID [facility] Insulin Human Regular (Humulin R) 12 unit SUBCUT BID [facility] Last Admin: 02/27/20 21:15 Dose: Not Given Documented by: Warfarin Sodium (Coumadin) 7.5 mg PO ONETIME ONE Stop: 02/28/20 14:01 Last Admin: 02/28/20 13:13 Dose: 7.5 mg Documented by: - Exam General: Reports: Alert, Oriented, Cooperative, No Acute Distress HEENT: Reports: Pupils Equal, Pupils Reactive, Mucous Membr. Moist/[place]: Reports: Supple Lungs: Reports: Clear to Auscultation, Normal Respiratory Effort Cardiovascular: Reports: Regular Rate, Regular Rhythm GI/Abdominal Exam: Normal Bowel Sounds, Soft, Non-Tender, No Distention Extremities: Non-Tender, Other (Chronic venous stasis changes. ) Skin: Reports: Warm, Dry, Intact Neurological: Reports: No New Focal Deficit Psy/Mental Status: Reports: Alert, Normal Affect, Normal Mood
== END 2020-02-28 16:00 | disposition home or self-care (01) ==
LOC: DL.ED 17:34 → DL.MS 19:51 → UNDOADMOB 20:04 → DL.MS 20:04
PROVIDERS: ADMIT Internal Medicine; ATTEND Internal Medicine
DX: E11.649 Type 2 diabetes mellitus with hypoglycemia without coma (principal); G93.41 Metabolic encephalopathy; E78.5 Hyperlipidemia, unspecified; I48.20 Chronic atrial fibrillation, unspecified; G47.33 Obstructive sleep apnea (adult) (pediatric); N18.9 Chronic kidney disease, unspecified; Z20.828 Contact with and (suspected) exposure to other viral communicable diseases; I12.9 Hypertensive chronic kidney disease with stage 1 through stage 4 chronic kidney disease, or unspecified chronic kidney disease; E11.22 Type 2 diabetes mellitus with diabetic chronic kidney disease; M06.9 Rheumatoid arthritis, unspecified; J84.10 Pulmonary fibrosis, unspecified; Z79.82 Long term (current) use of aspirin; Z79.01 Long term (current) use of anticoagulants; Z99.89 Dependence on other enabling machines and devices; Z79.4 Long term (current) use of insulin; Z79.899 Other long term (current) drug therapy; Z91.048 Other nonmedicinal substance allergy status; Z88.1 Allergy status to other antibiotic agents; Z88.8 Allergy status to other drugs, medicaments and biological substances
CPT/HCPCS: 36415; 70450; 80048; 80053; 80305; 80307; 81001; 82962; 83735; 84443; 84484; 85025; 85027; 85610; 85730; 87040; 93005; 96361; 96372; 96374; 96376; 99217; 99219; 99285; A9270; G0378; J1644; J1815; J7042; U0002

== ENCOUNTER 2020-03-27 22:48 | Observation (INO) | payer MEDICARE, BC ==
--- NOTE | 2020-03-27 23:13 | CT ---
PROCEDURE INFORMATION: Exam: CT Head Without Contrast Exam date and time: 03/27/2020 11:02 PM Age: 79 years old Clinical indication: Other: Weakness TECHNIQUE: Imaging protocol: Computed tomography of the head without contrast. Radiation optimization: All CT scans at this facility use at least one of these dose optimization techniques: automated exposure control; mA and/or kV adjustment per patient size (includes targeted exams where dose is matched to clinical indication); or iterative reconstruction. Other technique: STROKE PROTOCOL was implemented. COMPARISON: CT Head wo Cont 02/27/2020 5:37 PM FINDINGS: Brain: Chronic white matter ischemic changes are present. Cerebral ventricles: No ventriculomegaly. Bones/joints: Unremarkable. No acute fracture. Paranasal sinuses: Visualized sinuses are unremarkable. No fluid levels. Mastoid air cells: Visualized mastoid air cells are well aerated. Soft tissues: Extracalvarial soft tissues are unremarkable. Nasal cavity: Postoperative changes from prior turbinectomy. IMPRESSION: Chronic changes. No acute cortical infarction, hemorrhage or mass. ASSESSMENT: ASPECTS ([place] Stroke Program Early CT Score) is 10.
--- NOTE | 2020-03-27 23:37 | EDM.PDOC ---
ED HPI GENERAL MEDICAL PROBLEM - General Chief Complaint: Neurological Problem Stated Complaint: FALLS DOWN, LEGS ARE WEAK, LEFTSIDE Time Seen by Provider: 03/27/20 23:25 Source of Information: Reports: Patient History Limitations: Reports: No Limitations - History of Present Illness INITIAL COMMENTS - FREE TEXT/NARRATIVE: This 79 yo male patient was brought to the ED by family due to falling several times this afternoon and evening. The patient's symptoms started at about 1400 today. Upon arrival in the hospital, nursing staff reports that the patient had left sided facial droop, left upper and lower extremity weakness. The patient was taken directly to CT where the left sided weakness continued. After CT, the patient was brought back to the ED where his left sided weakness was no longer present. The patient has a history of diabetes, hypertension, a fib (on warfarin), sleep apnea (on CPAP), pulmonary fibrosis and rheumatoid arthritis. The patient was admitted to this facility about a month ago due to low blood sugar levels and an episode of confusion (the patient was found wondering around in a field). Onset: Today Onset Date: 03/27/20 Onset Time: 16:00 Location: Reports: Face, Upper Extremity, Left, Lower Extremity, Left Quality: Reports: Other Severity: Moderate Improves with: Reports: None Worsens with: Reports: None Context: Reports: Other - Related Data Allergies Allergy/AdvReac Type Severity Reaction Status Date / Time adhesive Allergy Rash Verified 06/29/18 06:58 clemastine Allergy Cannot Verified 06/23/18 11:50 Remember erythromycin base Allergy Abdominal Verified 06/23/18 11:50 Pain Home Meds: Home Meds Aspirin [Adult Low Dose Aspirin EC] 81 mg PO DAILY 08/13/14 [History] Calcium Carbonate 500 mg PO BID 08/13/14 [History] Furosemide 40 mg PO DAILY 08/13/14 [History] Lisinopril 20 mg PO BID 08/13/14 [History] Omeprazole 20 mg PO BID 08/13/14 [History] Simvastatin [Zocor] 20 mg PO BEDTIME 08/13/14 [History] Verapamil [Calan SR] 240 mg PO DAILY 08/13/14 [History] Insulin Regular, Human [HumuLIN R] 12 units SUBCUT BID 08/14/14 [History] Warfarin [Coumadin] 7.5 mg PO DAILY 08/14/14 [History] Albuterol [Proventil HFA] 2 puff INH Q4H PRN 06/20/15 [History] Budesonide [Pulmicort] 0.5 mg NEB BIDRT 06/20/15 [History] Formoterol [Perforomist] 20 mcg NEB BIDRT 06/20/15 [History] Sennosides/Docusate Sodium [Senna-Docusate Sodium] 2 tab PO BID PRN 06/20/15 [History] Acetaminophen 1,000 mg PO Q8H PRN 06/23/18 [History] Carbidopa/Levodopa [Carbidopa-Levo 25-250 mg Odt] 1 tab PO TID 06/23/18 [History] Flaxseed Oil 1,000 mg PO BID 06/23/18 [History] Gabapentin [Neurontin] 300 mg PO BEDTIME 06/23/18 [History] Insulin Isophane NPH, Human [HumuLIN N] 12 units SQ BID 06/23/18 [History] Levothyroxine 25 mcg PO ACBREAKFAST 06/23/18 [History] Turmeric Root Extract [Turmeric Curcumin] 500 mg PO DAILY 06/23/18 [History] Warfarin [Coumadin] 0.5 tab PO DAILY 06/23/18 [History] oxyCODONE 5 mg PO Q4H PRN 06/23/18 [History] sulfaSALAzine 500 mg PO BID 06/23/18 [History] Past Medical History HEENT History: Reports: Allergic Rhinitis, Cataract, Hard of Hearing, Impaired Vision Cardiovascular History: Reports: Afib, Blood Clots/VTE/DVT, High Cholesterol, Hypertension Respiratory History: Reports: COPD, Pulmonary Fibrosis, Sleep Apnea Gastrointestinal History: Reports: GERD Genitourinary History: Reports: Chronic Renal Insuffiency Musculoskeletal History: Reports: Osteoarthritis, RA Neurological History: Reports: Neuropathy, Diabetic, Other (See Below) Other Neuro History: "light stroke" Psychiatric History: Reports: Anxiety Endocrine/Metabolic History: Reports: Diabetes, Type II - Infectious Disease History Infectious Disease History: Reports: Chicken Pox, Measles, Mumps - Past Surgical History Cardiovascular Surgical History: Reports: Other (See Below) GI Surgical History: Reports: Appendectomy, Cholecystectomy Musculoskeletal Surgical History: Reports: Knee Replacement Social & Family History - Family History Family Medical History: Noncontributory - Caffeine Use Caffeine Use: Reports: Coffee - Living Situation & Occupation Living situation: Reports: , with Spouse Occupation: Retired ED ROS GENERAL - Review of Systems Review Of Systems: Comprehensive ROS is negative, except as noted in HPI. ED EXAM, NEURO - Physical Exam Exam: See Below Exam Limited By: No Limitations General Appearance: Alert, WD/WN, No Apparent Distress, Obese Eye Exam: Bilateral Eye: EOMI, Normal Inspection, PERRL Ears: Normal External Exam, Normal Canal, Hearing Grossly Normal, Normal TMs Nose: Normal Inspection, Normal Mucosa, No Blood Throat/Mouth: Normal Inspection, Normal Lips, Normal Teeth, Normal Gums, Normal Oropharynx, Normal Voice, No Airway Compromise Head Exam: Atraumatic, Normocephalic Neck: Normal Inspection, Supple, Non-Tender, Full Range of Motion Respiratory/Chest: No Respiratory Distress, Lungs Clear, Normal Breath Sounds, No Accessory Muscle Use, Chest Non-Tender Cardiovascular: Irregularly Irregular GI/Abdominal: Normal Bowel Sounds, Soft, Non-Tender, No Organomegaly, No Distention, No Abnormal Bruit, No Mass (Male) Exam: Deferred Rectal (Males) Exam: Deferred Neurological: Alert, Normal Mood/Affect, Normal Dorsiflexion, CN II-XII Intact, Normal Plantar Flexion, No Motor/Sensory Deficits, Oriented x 3 Back Exam: Normal Inspection, Full Range of Motion, NT Extremities: Normal Inspection, Normal Range of Motion, Non-Tender, No Pedal Edema, Normal Capillary Refill Psychiatric: Normal Affect, Normal Mood Skin Exam: Warm, Dry, Intact, Normal Color, No Rash Course - Vital Signs Last Recorded V/S: Last Vital Signs Temp 36.9 C 03/27/20 23:15 Pulse 78 03/27/20 23:15 Resp 18 03/27/20 23:15 BP 203/96 H 03/27/20 23:15 Pulse Ox 93 L 03/27/20 23:15 - Orders/Labs/Meds Orders: Active Orders 24 hr Category Date Time Status EKG Documentation Completion [RC] STAT Care 03/27/20 22:58 Active Glucose [Blood Glucose Check, Bedside] [RC] ONETIME Care 03/27/20 22:58 Active INR,PT,PROTHROMBIN TIME [COAG] Stat Lab 03/28/20 01:13 Ordered UA RFX SURESH AND CULT IF INDIC [URIN] Urgent Lab 03/27/20 23:39 Ordered Labs: Laboratory Tests 03/27/20 03/27/20 03/27/20 Range/Units 23:00 23:12 23:12 WBC 7.2 (5.0-10.0) 10^3/uL RBC 4.15 L (4.6-6.2) 10^6/uL Hgb 13.8 L D (14.0-18.0) g/dL Hct 41.8 (40.0-54.0) % MCV 100.7 H (80-100) fL MCH 33.3 (27.0-34.0) pg MCHC 33.0 (33.0-35.0) g/dL Plt Count 166 (150-450) 10^3/uL Neut % (Auto) 77.1 H (42.2-75.2) % Lymph % (Auto) 10.3 L (20.5-50.1) % Hudspeth % (Auto) 11.0 H (2-8) % Eos % (Auto) 1.5 (1.0-3.0) % Baso % (Auto) 0.1 (0.0-1.0) % Sodium 139 (136-145) mmol/L Potassium 3.5 (3.5-5.1) mmol/L Chloride 101 (98-107) mmol/L Carbon Dioxide 30 (21-32) mmol/L Anion Gap 11.5 (7-13) mEq/L BUN 18 (7-18) mg/dL Creatinine 1.07 (0.70-1.30) mg/dL Est Cr Clr Drug Dosing TNP Estimated GFR (MDRD) > 60 BUN/Creatinine Ratio 16.8 (No establ ref range) Glucose 157 H (74-99) mg/dL POC Glucose 149 H (83-110) mg/dl Calcium 9.3 (8.5-10.1) mg/dL Total Bilirubin 0.8 (0.2-1.0) mg/dL AST 40 H (15-37) U/L ALT 12 L (16-63) U/L Alkaline Phosphatase 247 H (46-116) U/L Troponin I < 0.017 (0.000-0.056) ng/mL Total Protein 7.9 (6.4-8.2) g/dL Albumin 3.6 (3.4-5.0) g/dL Globulin 4.3 Albumin/Globulin Ratio 0.8 SARS CoV-2 RNA Rapid PAULO (NEGATIVE) 03/28/20 Range/Units 00:01 WBC (5.0-10.0) 10^3/uL RBC (4.6-6.2) 10^6/uL Hgb (14.0-18.0) g/dL Hct (40.0-54.0) % MCV (80-100) fL MCH (27.0-34.0) pg MCHC (33.0-35.0) g/dL Plt Count (150-450) 10^3/uL Neut % (Auto) (42.2-75.2) % Lymph % (Auto) (20.5-50.1) % Hudspeth % (Auto) (2-8) % Eos % (Auto) (1.0-3.0) % Baso % (Auto) (0.0-1.0) % Sodium (136-145) mmol/L Potassium (3.5-5.1) mmol/L Chloride (98-107) mmol/L Carbon Dioxide (21-32) mmol/L Anion Gap (7-13) mEq/L BUN (7-18) mg/dL Creatinine (0.70-1.30) mg/dL Est Cr Clr Drug Dosing Estimated GFR (MDRD) BUN/Creatinine Ratio (No establ ref range) Glucose (74-99) mg/dL POC Glucose (83-110) mg/dl Calcium (8.5-10.1) mg/dL Total Bilirubin (0.2-1.0) mg/dL AST (15-37) U/L ALT (16-63) U/L Alkaline Phosphatase (46-116) U/L Troponin I (0.000-0.056) ng/mL Total Protein (6.4-8.2) g/dL Albumin (3.4-5.0) g/dL Globulin Albumin/Globulin Ratio SARS CoV-2 RNA Rapid PAULO Negative (NEGATIVE) - Re-Assessments/Exams Free Text/Narrative Re-Assessment/Exam: 03/28/20 01:[address] Breaux (). Dr. Breaux advised to observe for 12 hours, do a CTA looking at carotids, get an Echo and schedule the patient for an outpatient EEG. Departure - Departure Time of Disposition: 01:21 Disposition: Refer to Observation Condition: Fair Clinical Impression: TIA (transient ischemic attack) - Discharge Information *PRESCRIPTION DRUG MONITORING PROGRAM REVIEWED*: Not Applicable *COPY OF PRESCRIPTION DRUG MONITORING REPORT IN PATIENT MODESTA: Not Applicable Care Plan Goals: Discussed the patient's history, examination, CT, lab results and rec ommendations from Neurology with Dr. García. Dr. García accepted the patient for continued evaluation and further management as an observation patient at [facility]. Sepsis Event Note (ED) - Evaluation Sepsis Screening Result: No Definite Risk - Focused Exam Vital Signs: Vital Signs Temp Pulse Resp BP Pulse Ox 03/27/20 23:15 36.9 C 78 18 203/96 H 93 L - My Orders Last 24 Hours: My Active Orders 03/27/20 22:58 EKG Documentation Completion [RC] STAT Glucose [Blood Glucose Check, Bedside] [RC] ONETIME 03/27/20 23:39 UA RFX SURESH AND CULT IF INDIC [URIN] Urgent 03/28/20 01:13 INR,PT,PROTHROMBIN TIME [COAG] Stat - Assessment/Plan Last 24 Hours: My Active Orders 03/27/20 22:58 EKG Documentation Completion [RC] STAT Glucose [Blood Glucose Check, Bedside] [RC] ONETIME 03/27/20 23:39 UA RFX SURESH AND CULT IF INDIC [URIN] Urgent 03/28/20 01:13 INR,PT,PROTHROMBIN TIME [COAG] Stat
[2020-03-27 23:38] LABS: ANION GAP 11.5 mEq/L (7-13); CHLORIDE,CL 101 mmol/L (98-107); SODIUM,NA 139 mmol/L (136-145)
[2020-03-28] MEDS ORDERED: 50% Dextrose in Water 50 ML Syringe IV PRN ×2 (01:43→01:51)
[2020-03-28] MEDS ORDERED: Glucagon,Human Recombinant 1 MG Vial IM PRN ×2 (01:43→01:51)
[2020-03-28] MEDS ORDERED: oxyCODONE 5 MG Tab PO PRN (01:43)
[2020-03-28] MEDS ORDERED: Albuterol/Ipratropium 3.0-0.5 MG/3 ML Neb Soln NEB PRN (01:50)
[2020-03-28] MEDS ORDERED: 50% Dextrose in Water 50 ML Syringe IVPUSH PRN (01:51)
--- NOTE | 2020-03-28 01:56 | PCM.HP ---
H&P History of Present Illness - General Date of Service: 03/28/20 Admit Problem/Dx: Admission Diagnosis/Problem Admission Diagnosis/Problem TIA, Transient ischemic attack Source of Information: Patient, Provider - History of Present Illness Initial Comments - Free Text/Narative: 79-year-old gentleman with a history of atrial fibrillation, rheumatoid arthritis, pulmonary fibrosis, sleep apnea on CPAP, diabetes, hypertension. The patient presented with the multiple falling episode since 2:00 in the afternoon. He was noted to have transient left upper and lower extremity w eakness associated with the left facial droop when arrived to the emergency room. This resolved quickly. He denies headache, shortness of breath, chest pain, palpitation. He says he has been taking his Coumadin regularly. - Related Data Allergies/Adverse Reactions: Allergies Allergy/AdvReac Type Severity Reaction Status Date / Time adhesive Allergy Rash Verified 06/29/18 06:58 clemastine Allergy Cannot Verified 06/23/18 11:50 Remember erythromycin base Allergy Abdominal Verified 06/23/18 11:50 Pain Home Medications: Home Meds Aspirin [Adult Low Dose Aspirin EC] 81 mg PO DAILY 08/13/14 [History] Calcium Carbonate 500 mg PO BID 08/13/14 [History] Furosemide 40 mg PO DAILY 08/13/14 [History] Lisinopril 20 mg PO BID 08/13/14 [History] Omeprazole 20 mg PO BID 08/13/14 [History] Simvastatin [Zocor] 20 mg PO BEDTIME 08/13/14 [History] Verapamil [Calan SR] 240 mg PO DAILY 08/13/14 [History] Insulin Regular, Human [HumuLIN R] 12 units SUBCUT BID 08/14/14 [History] Warfarin [Coumadin] 7.5 mg PO DAILY 08/14/14 [History] Albuterol [Proventil HFA] 2 puff INH Q4H PRN 06/20/15 [History] Budesonide [Pulmicort] 0.5 mg NEB BIDRT 06/20/15 [History] Formoterol [Perforomist] 20 mcg NEB BIDRT 06/20/15 [History] Sennosides/Docusate Sodium [Senna-Docusate Sodium] 2 tab PO BID PRN 06/20/15 [History] Acetaminophen 1,000 mg PO Q8H PRN 06/23/18 [History] Carbidopa/Levodopa [Carbidopa-Levo 25-250 mg Odt] 1 tab PO TID 06/23/18 [History] Flaxseed Oil 1,000 mg PO BID 06/23/18 [History] Gabapentin [Neurontin] 300 mg PO BEDTIME 06/23/18 [History] Insulin Isophane NPH, Human [HumuLIN N] 12 units SQ BID 06/23/18 [History] Levothyroxine 25 mcg PO ACBREAKFAST 06/23/18 [History] Turmeric Root Extract [Turmeric Curcumin] 500 mg PO DAILY 06/23/18 [History] Warfarin [Coumadin] 0.5 tab PO DAILY 06/23/18 [History] oxyCODONE 5 mg PO Q4H PRN 06/23/18 [History] sulfaSALAzine 500 mg PO BID 06/23/18 [History] Past Medical History HEENT History: Reports: Allergic Rhinitis, Cataract, Hard of Hearing, Impaired Vision Cardiovascular History: Reports: Afib, Blood Clots/VTE/DVT, High Cholesterol, Hypertension Respiratory History: Reports: COPD, Pulmonary Fibrosis, Sleep Apnea Gastrointestinal History: Reports: GERD Genitourinary History: Reports: Chronic Renal Insuffiency Musculoskeletal History: Reports: Osteoarthritis, RA Neurological History: Reports: Neuropathy, Diabetic, Other (See Below) Other Neuro History: "light stroke" Psychiatric History: Reports: Anxiety Endocrine/Metabolic History: Reports: Diabetes, Type II - Infectious Disease History Infectious Disease History: Reports: Chicken Pox, Measles, Mumps - Past Surgical History Cardiovascular Surgical History: Reports: Other (See Below) GI Surgical History: Reports: Appendectomy, Cholecystectomy Musculoskeletal Surgical History: Reports: Knee Replacement Social & Family History - Family History Family Medical History: Noncontributory - Tobacco Use Tobacco Use Status *Q: Never Tobacco User Second Hand Smoke Exposure: No - Caffeine Use Caffeine Use: Reports: Coffee - Recreational Drug Use Recreational Drug Use: No - Living Situation & Occupation Living situation: Reports: , with Spouse Occupation: Retired H&P Review of Systems - Review of Systems: Review Of Systems: See Below General: Denies: Fever Pulmonary: Denies: Shortness of Breath Cardiovascular: Reports: Edema. Denies: Chest Pain Gastrointestinal: Denies: Abdominal Pain Genitourinary: Denies: Dysuria Musculoskeletal: Reports: Arm Pain (since falling) Psychiatric: Denies: Confusion Neurological: Reports: Trouble Speaking, Difficulty Walking, Weakness. Denies: Dizziness, Headache, Seizure, Syncope Exam - Exam Exam: See Below - Vital Signs Vital Signs: Last Vital Signs Temp 99.3 F 03/28/20 01:29 Pulse 82 03/28/20 01:29 Resp 16 03/28/20 01:29 BP 174/94 H 03/28/20 01:29 Pulse Ox 95 03/28/20 01:29 - Exam Quality Assessment: No: Supplemental Oxygen General: Alert, Oriented Neck: Supple Lungs: Normal Respiratory Effort, Decreased Breath Sounds Cardiovascular: Regular Rate, Regular Rhythm GI/Abdominal Exam: Normal Bowel Sounds, Soft, Non-Tender Extremities: Pedal Edema (1+ b/l) Skin: Warm, Dry Neurological: Normal Speech. No: Focal Deficit Neuro Extensive - Mental Status: Alert, Oriented x3, Nl Response to Commands Psychiatric: Alert, Normal Affect, Normal Mood - Patient Data Lab Results Last 24 hrs: Laboratory Results - last 24 hr 03/27/20 03/27/20 03/27/20 Range/Units 23:00 23:12 23:12 WBC 7.2 (5.0-10.0) 10^3/uL RBC 4.15 L (4.6-6.2) 10^6/uL Hgb 13.8 L D (14.0-18.0) g/dL Hct 41.8 (40.0-54.0) % MCV 100.7 H (80-100) fL MCH 33.3 (27.0-34.0) pg MCHC 33.0 (33.0-35.0) g/dL Plt Count 166 (150-450) 10^3/uL Neut % (Auto) 77.1 H (42.2-75.2) % Lymph % (Auto) 10.3 L (20.5-50.1) % Edmunds % (Auto) 11.0 H (2-8) % Eos % (Auto) 1.5 (1.0-3.0) % Baso % (Auto) 0.1 (0.0-1.0) % PT (9.0-12.0) SEC INR (0.9-1.2) Sodium 139 (136-145) mmol/L Potassium 3.5 (3.5-5.1) mmol/L Chloride 101 (98-107) mmol/L Carbon Dioxide 30 (21-32) mmol/L Anion Gap 11.5 (7-13) mEq/L BUN 18 (7-18) mg/dL Creatinine 1.07 (0.70-1.30) mg/dL Est Cr Clr Drug Dosing TNP Estimated GFR (MDRD) > 60 BUN/Creatinine Ratio 16.8 (No establ ref range) Glucose 157 H (74-99) mg/dL POC Glucose 149 H (83-110) mg/dl Calcium 9.3 (8.5-10.1) mg/dL Total Bilirubin 0.8 (0.2-1.0) mg/dL AST 40 H (15-37) U/L ALT 12 L (16-63) U/L Alkaline Phosphatase 247 H (46-116) U/L Troponin I < 0.017 (0.000-0.056) ng/mL Total Protein 7.9 (6.4-8.2) g/dL Albumin 3.6 (3.4-5.0) g/dL Globulin 4.3 Albumin/Globulin Ratio 0.8 SARS CoV-2 RNA Rapid PAULO (NEGATIVE) 03/27/20 03/28/20 Range/Units 23:12 00:01 WBC (5.0-10.0) 10^3/uL RBC (4.6-6.2) 10^6/uL Hgb (14.0-18.0) g/dL Hct (40.0-54.0) % MCV (80-100) fL MCH (27.0-34.0) pg MCHC (33.0-35.0) g/dL Plt Count (150-450) 10^3/uL Neut % (Auto) (42.2-75.2) % Lymph % (Auto) (20.5-50.1) % Edmunds % (Auto) (2-8) % Eos % (Auto) (1.0-3.0) % Baso % (Auto) (0.0-1.0) % PT 15.4 H (9.0-12.0) SEC INR 1.6 H (0.9-1.2) Sodium (136-145) mmol/L Potassium (3.5-5.1) mmol/L Chloride (98-107) mmol/L Carbon Dioxide (21-32) mmol/L Anion Gap (7-13) mEq/L BUN (7-18) mg/dL Creatinine (0.70-1.30) mg/dL Est Cr Clr Drug Dosing Estimated GFR (MDRD) BUN/Creatinine Ratio (No establ ref range) Glucose (74-99) mg/dL POC Glucose (83-110) mg/dl Calcium (8.5-10.1) mg/dL Total Bilirubin (0.2-1.0) mg/dL AST (15-37) U/L ALT (16-63) U/L Alkaline Phosphatase (46-116) U/L Troponin I (0.000-0.056) ng/mL Total Protein (6.4-8.2) g/dL Albumin (3.4-5.0) g/dL Globulin Albumin/Globulin Ratio SARS CoV-2 RNA Rapid PAULO Negative (NEGATIVE) Result Diagrams: 03/27/20 23:12 03/27/20 23:12 - Problem List (1) Hypertension SNOMED Code(s): 68686941 ICD Code: I10 - ESSENTIAL (PRIMARY) HYPERTENSION Status: Acute Current Visit: No (2) BOWEN (obstructive sleep apnea) SNOMED Code(s): 00547767 ICD Code: G47.33 - OBSTRUCTIVE SLEEP APNEA (ADULT) (PEDIATRIC) Status: Acute Current Visit: No (3) TIA (transient ischemic attack) SNOMED Code(s): 203756732 ICD Code: G45.9 - TRANSIENT CEREBRAL ISCHEMIC ATTACK, UNSPECIFIED Status: Acute Current Visit: No (4) Afib SNOMED Code(s): 82919119 ICD Code: I48.91 - UNSPECIFIED ATRIAL FIBRILLATION Status: Chronic Priority: Low Current Visit: No (5) Diabetes SNOMED Code(s): 46018035 ICD Code: E11.9 - TYPE 2 DIABETES MELLITUS WITHOUT COMPLICATIONS Status: Chronic Priority: Medium Current Visit: No Qualifiers: Diabetes mellitus type: type 2 Diabetes mellitus complication status: without complication Qualified Code(s): E11.9 - Type 2 diabetes mellitus without complications Problem List Initiated/Reviewed/Updated: Yes Orders Last 24hrs: Active Orders 24 hr Category Date Time Status Admission Diagnosis [ADT] Urgent ADT 03/28/20 01:23 Ordered Admission Status [Patient Status] [ADT] Routine ADT 03/28/20 01:23 Active EKG Documentation Completion [RC] STAT Care 03/27/20 22:58 Active Glucose [Blood Glucose Check, Bedside] [RC] ONETIME Care 03/27/20 22:58 Active Glucose [Blood Glucose Check, Bedside] [RC] QIDACANDBED Care 03/28/20 01:51 Ordered Nursing Bedside Swallow Screen [RC] ASDIRECTED Care 03/28/20 01:41 Ordered RT Aerosol Therapy [RC] ASDIRECTED Care 03/28/20 01:47 Ordered RT Aerosol Therapy [RC] ASDIRECTED Care 03/28/20 01:51 Ordered OT Evaluation and Treatment [CONS] Routine Cons 03/28/20 01:40 Ordered PT Evaluation and Treatment [CONS] Routine Cons 03/28/20 01:40 Ordered CIGARETTE SELLER Eval and Treat [CIGARETTE SELLER Evaluation and Treatment] [CONS Cons 03/28/20 01:40 Ordered ] Routine Ang Head [CT] Routine Exams 03/28/20 01:41 Ordered CTA Neck W & W/O Contrast [Ang Neck] [CT] Routine Exams 03/28/20 01:41 Ordered Echo Comp wo Cont [US] Routine Exams 03/28/20 01:41 Ordered BASIC METABOLIC PANEL,BMP [CHEM] AM Lab 03/29/20 05:15 Ordered CBC WITH AUTO DIFF [HEME] AM Lab 03/29/20 05:15 Ordered GLYCOSYLATED HEMOGLOBIN,HGBA1C [CHEM] AM Lab 03/28/20 05:11 Ordered LIPID PANEL [CHEM] AM Lab 03/28/20 05:11 Ordered UA RFX SURESH AND CULT IF INDIC [URIN] Urgent Lab 03/27/20 23:39 Ordered Albuterol/Ipratropium [DuoNeb 3.0-0.5 MG/3 ML] Med 03/28/20 01:50 Ordered 3 ml NEB Q2H PRN Albuterol/Ipratropium [DuoNeb 3.0-0.5 MG/3 ML] Med 03/28/20 07:00 Ordered 3 ml NEB Q6HRRT Aspirin [Halfprin] Med 03/28/20 09:00 Ordered 81 mg PO DAILY Budesonide [Pulmicort] Med 03/28/20 07:00 Ordered 0.5 mg NEB BIDRT Carbidopa/Levodopa [Carbidopa-Levo 25-250 mg Odt] Med 03/28/20 09:00 Ordered 1 tab PO TID Dextrose 50% in Water Med 03/28/20 01:51 Ordered 25 ml IVPUSH Q1H PRN Dextrose 50% in Water Med 03/28/20 01:43 Ordered 50 ml IV ASDIRECTED PRN Dextrose 50% in Water Med 03/28/20 01:51 Ordered 50 ml IV ASDIRECTED PRN Furosemide [Lasix] Med 03/28/20 09:00 Ordered 40 mg PO DAILY Gabapentin [Neurontin] Med 03/28/20 21:00 Ordered 300 mg PO BEDTIME Glucagon,Human Recombinant [GlucaGen] Med 03/28/20 01:43 Ordered 1 mg IM ASDIRECTED PRN Glucagon,Human Recombinant [GlucaGen] Med 03/28/20 01:51 Ordered 1 mg IM ASDIRECTED PRN Insulin Lispro [HumaLOG] Med 03/28/20 07:00 Ordered See Protocol SUBCUT ACBED Insulin NPH Human Isophane [HumuLIN N] Med 03/28/20 09:00 Ordered 12 unit SQ BID Levothyroxine Med 03/28/20 06:00 Ordered 25 mcg PO ACBREAKFAST Omeprazole Med 03/28/20 09:00 Ordered 20 mg PO BID Pharmacy to Dose - Warfarin Med 03/28/20 01:45 Ordered 1 dose .XX ASDIRECTED atorvaSTATin [Lipitor] Med 03/28/20 21:00 Ordered 40 mg PO BEDTIME lisinopriL [Prinivil] Med 03/28/20 09:00 Ordered 20 mg PO BID oxyCODONE Med 03/28/20 01:43 Ordered 5 mg PO Q4H PRN sulfaSALAzine Med 03/28/20 09:00 Ordered 500 mg PO BID Medication Orders Albuterol/Ipratropium (Duoneb 3.0-0.5 Mg/3 Ml) 3 ml NEB Q6HRRT [facility] Albuterol/Ipratropium (Duoneb 3.0-0.5 Mg/3 Ml) 3 ml NEB Q2H PRN PRN Reason: sob Aspirin (Halfprin) 81 mg PO DAILY [facility] Atorvastatin Calcium (Lipitor) 40 mg PO BEDTIME [facility] Budesonide (Pulmicort) 0.5 mg NEB BIDRT [facility] Dextrose/Water (Dextrose 50% In Water) 50 ml IV ASDIRECTED PRN PRN Reason: Hypoglycemia Dextrose/Water (Dextrose 50% In Water) 25 ml IVPUSH Q1H PRN PRN Reason: blood sugar <70 Dextrose/Water (Dextrose 50% In Water) 50 ml IV ASDIRECTED PRN PRN Reason: Hypoglycemia Furosemide (Lasix) 40 mg PO DAILY [facility] Gabapentin (Neurontin) 300 mg PO BEDTIME [facility] Glucagon (Glucagen) 1 mg IM ASDIRECTED PRN PRN Reason: Hypoglycemia Glucagon (Glucagen) 1 mg IM ASDIRECTED PRN PRN Reason: Hypoglycemia Insulin Human Lispro (Humalog) 0 unit SUBCUT ACBED [facility]; Protocol Insulin Human NPH (Humulin N) 12 unit SQ BID [facility] Levothyroxine Sodium (Levothyroxine) 25 mcg PO ACBREAKFAST [facility] Lisinopril (Prinivil) 20 mg PO BID [facility] Non-Formulary Medication (Carbidopa/Levodopa [Carbidopa-Levo 25-250 Mg Odt]) 1 tab PO TID [facility] Omeprazole (Omeprazole) 20 mg PO BID [facility] Oxycodone HCl (Oxycodone) 5 mg PO Q4H PRN PRN Reason: Pain (moderate 4-6) Sulfasalazine (Sulfasalazine) 500 mg PO BID [facility] Warfarin Sodium (Pharmacy To Dose - Warfarin) 1 dose .XX ASDIRECTED [facility] Assessment/Plan Comment:: Revised December 2013 79-year-old gentleman with a history of atrial fibrillation, rheumatoid arthritis, pulmonary fibrosis, sleep apnea on CPAP, diabetes, hypertension. The patient presented with the multiple falling episode since 2:00 in the afternoon. He was noted to have transient left upper and lower extremity weakness associated with the left facial droop when arrived to the emergency room. This resolved quickly. He denies headache, shortness of breath, chest pain, palpitation. He says he has been taking his Coumadin regularly. TIA Left-sided weakness resolved The patient is out of TPA timeframe and symptoms have resolved We will obtain CT angiography head and neck Obtain echocardiogram Obtain lipid study Obtain hemoglobin A1c Continue anticoagulation for atrial fibrillation Continue aspirin Change Zocor to Lipitor PT, OT evaluation and treatment Bedside nurse swallow evaluation, CIGARETTE SELLER evaluation Will need follow-up with neurology, consider EEG if no other findings. Hypertension Continue lisinopril Hypothyroidism Continue levothyroxine Diabetes Continue NPH insulin Supplemental insulin and hypoglycemia treatment as needed Chronic pain Continue oxycodone as needed Continue Neurontin COPD Continue Pulmicort Use DuoNeb scheduled and as needed DVT prophylaxis with full dose Coumadin anticoagulation
[2020-03-28] MEDS ORDERED: Temazepam 15 MG Cap PO PRN (01:58)
[2020-03-28] MEDS ORDERED: Acetaminophen 325 MG Tab PO PRN (01:58)
[2020-03-28] MEDS ORDERED: Sodium Chloride 0.9% 10 ML Syringe FLUSH PRN (01:58)
[2020-03-28] MEDS ORDERED: Ondansetron 4 MG/2 ML SDV IVPUSH PRN (01:58)
[2020-03-28] MEDS ORDERED: Docusate Sodium 100 MG Cap PO PRN (01:58)
[2020-03-28] MEDS ORDERED: Levothyroxine 25 MCG Tab PO SCH (06:00)
[2020-03-28] MEDS ORDERED: Albuterol/Ipratropium 3.0-0.5 MG/3 ML Neb Soln NEB SCH (07:00)
[2020-03-28] MEDS ORDERED: Budesonide 0.5 MG/2 ML Neb Susp NEB SCH (07:00)
[2020-03-28 07:38] LABS: HEMOGLOBIN A1C 6.4 % (<5.7)
[2020-03-28] MEDS ORDERED: Lisinopril 20 MG Tab PO SCH (09:00)
[2020-03-28] MEDS ORDERED: sulfaSALAzine 500 MG Tab PO SCH (09:00)
[2020-03-28] MEDS ORDERED: Insulin Isophane NPH, Human 100 Units/ML 3 ML Vial SQ SCH (09:00)
[2020-03-28] MEDS ORDERED: Carbidopa/Levodopa 25-250 MG Tab PO SCH (09:00)
[2020-03-28] MEDS ORDERED: Omeprazole 20 MG Cap.CR PO SCH (09:00)
[2020-03-28] MEDS ORDERED: Aspirin 81 MG Tab.EC PO SCH (09:00)
[2020-03-28] MEDS ORDERED: Furosemide 40 MG Tab PO SCH (09:00)
[2020-03-28] MEDS ORDERED: Iopamidol 755 Mg/ML 100 ML Bottle IVPUSH ONE (10:00)
--- NOTE | 2020-03-28 10:42 | CT ---
PROCEDURE INFORMATION: Exam: CT Angiography Neck With Contrast Exam date and time: 03/28/2020 9:42 AM Age: 79 years old Clinical indication: Weakness; Additional info: TIA, left weakness TECHNIQUE: Imaging protocol: Computed tomography angiography of the neck with intravenous contrast. Radiation optimization: All CT scans at this facility use at least one of these dose optimization techniques: automated exposure control; mA and/or kV adjustment per patient size (includes targeted exams where dose is matched to clinical indication); or iterative reconstruction. Contrast material: ISOVUE 370; Contrast volume: 75 ml; Contrast route: INTRAVENOUS (IV); COMPARISON: No relevant prior studies available. FINDINGS: Right common carotid artery: No occlusion or suspicious stenosis. Right internal carotid artery: Contrast is no longer visualized in the vessel at the C2/3 level. There is mild calcification at the carotid bulb not causing suspicious stenosis. Right external carotid artery: Normal. Right vertebral artery: Normal. Left common carotid artery: Normal. Left internal carotid artery: Normal. Left external carotid artery: Normal. Left vertebral artery: Dominant. Tortuous origin, otherwise, normal. Subclavian arteries: Normal. Brachiocephalic artery: Normal. Aorta: Mild atherosclerosis at the level of the arch. Veins: Normal. Brain: The incompletely viewed brain is normal. Sinuses: Mild left maxillary sinus mucosal thickening. No fluid level. Submandibular/Parotid glands: Normal. Thyroid: Normal. Bones/joints: No fracture or concerning stenosis. Mastoid air cells: Clear. Soft tissues: No masses. Lymph nodes: Enlarged mediastinal lymph nodes including in AP window lymph node that measures up to 13.5 mm on short axis and right paratracheal lymph node measuring up to 18.5 mm on short axis. No enlarged neck lymph nodes. IMPRESSION: 1. 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 2. Mediastinal adenopathy. Correlation with the history for no disease in the chest is recommended, otherwise, consider CT of the entire thorax. REFERENCES: NASCET CRITERIA. The degree of internal carotid artery stenosis is based on NASCET criteria. Normal is no stenosis. Mild is less than 50% stenosis. Moderate is 50-69% stenosis. Severe is 70% to 99% stenosis. Total occlusion is no detectable patent lumen.
--- NOTE | 2020-03-28 10:44 | CT ---
PROCEDURE INFORMATION: Exam: CT Angiography Head With Contrast Exam date and time: 03/28/2020 9:42 AM Age: 79 years old Clinical indication: Weakness; Additional info: TIA, left weakness TECHNIQUE: Imaging protocol: Computed tomography angiography of the head with intravenous contrast. Radiation optimization: All CT scans at this facility use at least one of these dose optimization techniques: automated exposure control; mA and/or kV adjustment per patient size (includes targeted exams where dose is matched to clinical indication); or iterative reconstruction. Contrast material: ISOVUE 370; Contrast volume: 75 ml; Contrast route: INTRAVENOUS (IV); COMPARISON: CT Head wo Cont 03/27/2020 11:02 PM FINDINGS: ANTERIOR CIRCULATION: Right internal carotid artery: No enhancement in any portion. Right middle cerebral artery: Normal. Right anterior cerebral artery: Normal. Left internal carotid artery: Normal. Left middle cerebral artery: Normal. Left anterior cerebral artery: Normal. POSTERIOR CIRCULATION: Right vertebral artery: Normal. Left vertebral artery: Normal. Basilar artery: Normal. Right posterior cerebral artery: Normal. Left posterior cerebral artery: Normal. Brain: No mass, intracranial hemorrhage or brain edema. No abnormal brain parenchymal or leptomeningeal enhancement. No transcortical defects. Cerebral ventricles: Normal. No ventriculomegaly. Mastoid air cells: Clear. Paranasal sinuses: Mild left maxillary sinus mucosal thickening. Bones/joints: Intact. No suspicious lesions. Soft tissues: Unremarkable. IMPRESSION: Occluded right internal carotid artery. Middle cerebral artery and branches remain patent.
--- NOTE | 2020-03-28 10:47 | PCM.DCSUM1 ---
Discharge Summary - Hospital Course Free Text/Narrative:: presented with episodes of falling starting around 2 PM on 27 March. when arrived to the emergency room around midnight have the patient had left hemiparesis. This quickly resolved. The patient was admitted and around 7.0 - 7.30 AM in the morning it was noted to have recurrence of left hemiparesis, stroke code was called CT angiogram performed.Result is pending INR 1.7 called [facility] d/w Neurointerventionalist Diagnosis: Stroke: Yes Modified Alger Scale: Mod.Sev.Disability ;Unable to Walk/Attend Bodily Needs W/O Assistance Modified Alger Scale Score: 4 - Discharge Data Discharge Date: 03/28/20 Discharge Disposition: DC/Tfer to Acute Hospital 02 Condition: Fair - Referral to Home Health Primary Care Physician: Robert Krause MD - Discharge Diagnosis/Problem(s) (1) Hypertension SNOMED Code(s): 72504659 ICD Code: I10 - ESSENTIAL (PRIMARY) HYPERTENSION Status: Acute Current Visit: No (2) BOWEN (obstructive sleep apnea) SNOMED Code(s): 53342800 ICD Code: G47.33 - OBSTRUCTIVE SLEEP APNEA (ADULT) (PEDIATRIC) Status: Acute Current Visit: No (3) TIA (transient ischemic attack) SNOMED Code(s): 714478402 ICD Code: G45.9 - TRANSIENT CEREBRAL ISCHEMIC ATTACK, UNSPECIFIED Status: Acute Current Visit: No (4) Afib SNOMED Code(s): 71027007 ICD Code: I48.91 - UNSPECIFIED ATRIAL FIBRILLATION Status: Chronic Priority: Low Current Visit: No (5) Diabetes SNOMED Code(s): 75919822 ICD Code: E11.9 - TYPE 2 DIABETES MELLITUS WITHOUT COMPLICATIONS Status: Chronic Priority: Medium Current Visit: No Qualifiers: Diabetes mellitus type: type 2 Diabetes mellitus complication status: without complication Qualified Code(s): E11.9 - Type 2 diabetes mellitus without complications (6) 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 SNOMED Code(s): 532585453, 28882358883273755 ICD Code: I63.519 - CEREB INFRC D/T UNSP OCCLS OR STENOS OF UNSP MID CEREB ART Status: Acute Current Visit: Yes - Patient Summary/Data Consults: Consultations 03/28/20 01:40 OT Evaluation and Treatment [CONS] Routine PT Evaluation and Treatment [CONS] Routine STABLE CLEANER Eval and Treat [STABLE CLEANER Evaluation and Treatment] [CONS] Routine 03/28/20 09:25 OT Evaluation and Treatment [CONS] Routine - Patient Instructions Diet: NPO Activity: Bedrest - Discharge Plan *PRESCRIPTION DRUG MONITORING PROGRAM REVIEWED*: Not Applicable *COPY OF PRESCRIPTION DRUG MONITORING REPORT IN PATIENT MODESTA: Not Applicable Home Medications: Home Meds Aspirin [Adult Low Dose Aspirin EC] 81 mg PO DAILY 08/13/14 [History] Calcium Carbonate 500 mg PO BID 08/13/14 [History] Furosemide 40 mg PO DAILY 08/13/14 [History] Lisinopril 20 mg PO BID 08/13/14 [History] Omeprazole 20 mg PO BID 08/13/14 [History] Simvastatin [Zocor] 20 mg PO BEDTIME 08/13/14 [History] Verapamil [Calan SR] 240 mg PO DAILY 08/13/14 [History] Insulin Regular, Human [HumuLIN R] 12 units SUBCUT BID 08/14/14 [History] Warfarin [Coumadin] 7.5 mg PO DAILY 08/14/14 [History] Albuterol [Proventil HFA] 2 puff INH Q4H PRN 06/20/15 [History] Budesonide [Pulmicort] 0.5 mg NEB BIDRT 06/20/15 [History] Formoterol [Perforomist] 20 mcg NEB BIDRT 06/20/15 [History] Sennosides/Docusate Sodium [Senna-Docusate Sodium] 2 tab PO BID PRN 06/20/15 [History] Acetaminophen 1,000 mg PO Q8H PRN 06/23/18 [History] Carbidopa/Levodopa [Carbidopa-Levo 25-250 mg Odt] 1 tab PO TID 06/23/18 [History] Flaxseed Oil 1,000 mg PO BID 06/23/18 [History] Gabapentin [Neurontin] 300 mg PO BEDTIME 06/23/18 [History] Insulin Isophane NPH, Human [HumuLIN N] 12 units SQ BID 06/23/18 [History] Levothyroxine 25 mcg PO ACBREAKFAST 06/23/18 [History] Turmeric Root Extract [Turmeric Curcumin] 500 mg PO DAILY 06/23/18 [History] Warfarin [Coumadin] 0.5 tab PO DAILY 06/23/18 [History] oxyCODONE 5 mg PO Q4H PRN 06/23/18 [History] sulfaSALAzine 500 mg PO BID 06/23/18 [History] Oxygen Therapy Mode: Nasal Cannula - Discharge Summary/Plan Comment DC Time >30 min.: Yes (arranging transfer to [facility]) - General Info Date of Service: 03/28/20 - Review of Systems General: Reports: Weakness. Denies: Fever Pulmonary: Denies: Shortness of Breath Gastrointestinal: Denies: Abdominal Pain Neurological: Denies: Confusion, Headache - Patient Data Vitals - Most Recent: Last Vital Signs Temp 97.5 F 03/28/20 08:00 Pulse 79 03/28/20 08:00 Resp 20 03/28/20 08:00 BP 117/73 03/28/20 08:00 Pulse Ox 98 03/28/20 08:00 Weight - Most Recent: 199 lb Lab Results - Last 24 hrs: Laboratory Results - last 24 hr 03/27/20 03/27/20 03/27/20 Range/Units 23:00 23:12 23:12 WBC 7.2 (5.0-10.0) 10^3/uL RBC 4.15 L (4.6-6.2) 10^6/uL Hgb 13.8 L D (14.0-18.0) g/dL Hct 41.8 (40.0-54.0) % MCV 100.7 H (80-100) fL MCH 33.3 (27.0-34.0) pg MCHC 33.0 (33.0-35.0) g/dL Plt Count 166 (150-450) 10^3/uL Neut % (Auto) 77.1 H (42.2-75.2) % Lymph % (Auto) 10.3 L (20.5-50.1) % Kinney % (Auto) 11.0 H (2-8) % Eos % (Auto) 1.5 (1.0-3.0) % Baso % (Auto) 0.1 (0.0-1.0) % PT (9.0-12.0) SEC INR (0.9-1.2) Sodium 139 (136-145) mmol/L Potassium 3.5 (3.5-5.1) mmol/L Chloride 101 (98-107) mmol/L Carbon Dioxide 30 (21-32) mmol/L Anion Gap 11.5 (7-13) mEq/L BUN 18 (7-18) mg/dL Creatinine 1.07 (0.70-1.30) mg/dL Est Cr Clr Drug Dosing TNP Estimated GFR (MDRD) > 60 BUN/Creatinine Ratio 16.8 (No establ ref range) Glucose 157 H (74-99) mg/dL POC Glucose 149 H (83-110) mg/dl Hemoglobin A1c (<5.7) % Calcium 9.3 (8.5-10.1) mg/dL Total Bilirubin 0.8 (0.2-1.0) mg/dL AST 40 H (15-37) U/L ALT 12 L (16-63) U/L Alkaline Phosphatase 247 H (46-116) U/L Troponin I < 0.017 (0.000-0.056) ng/mL Total Protein 7.9 (6.4-8.2) g/dL Albumin 3.6 (3.4-5.0) g/dL Globulin 4.3 Albumin/Globulin Ratio 0.8 Triglycerides (0-149) mg/dL Cholesterol (0-199) mg/dL LDL Cholesterol, Calc (0-100) mg/dL HDL Cholesterol (40-59) mg/dL Urine Color (YELLOW) Urine Appearance (CLEAR) Urine pH (5.0-9.0) Ur Specific Raymond (1.005-1.030) Urine Protein (NEGATIVE) Urine Glucose (UA) (NEGATIVE) Urine Ketones (NEGATIVE) Urine Occult Blood (NEGATIVE) Urine Nitrite (NEGATIVE) Urine Bilirubin (NEGATIVE) Urine Urobilinogen (0.2-1.0) mg/dL Ur Leukocyte Esterase (NEGATIVE) Urine RBC /HPF Urine WBC (0-5/HPF) /HPF Ur Epithelial Cells (NOT SEEN) /HPF Amorphous Sediment (NOT SEEN) /HPF Urine Bacteria (0-FEW/HPF) /HPF Fine Granular Casts (NOT SEEN) /LPF Urine Mucus (NOT SEEN) /LPF SARS CoV-2 RNA Rapid PAULO (NEGATIVE) 03/27/20 03/28/20 03/28/20 Range/Units 23:12 00:01 01:39 WBC (5.0-10.0) 10^3/uL RBC (4.6-6.2) 10^6/uL Hgb (14.0-18.0) g/dL Hct (40.0-54.0) % MCV (80-100) fL MCH (27.0-34.0) pg MCHC (33.0-35.0) g/dL Plt Count (150-450) 10^3/uL Neut % (Auto) (42.2-75.2) % Lymph % (Auto) (20.5-50.1) % Kinney % (Auto) (2-8) % Eos % (Auto) (1.0-3.0) % Baso % (Auto) (0.0-1.0) % PT 15.4 H (9.0-12.0) SEC INR 1.6 H (0.9-1.2) Sodium (136-145) mmol/L Potassium (3.5-5.1) mmol/L Chloride (98-107) mmol/L Carbon Dioxide (21-32) mmol/L Anion Gap (7-13) mEq/L BUN (7-18) mg/dL Creatinine (0.70-1.30) mg/dL Est Cr Clr Drug Dosing Estimated GFR (MDRD) BUN/Creatinine Ratio (No establ ref range) Glucose (74-99) mg/dL POC Glucose (83-110) mg/dl Hemoglobin A1c (<5.7) % Calcium (8.5-10.1) mg/dL Total Bilirubin (0.2-1.0) mg/dL AST (15-37) U/L ALT (16-63) U/L Alkaline Phosphatase (46-116) U/L Troponin I (0.000-0.056) ng/mL Total Protein (6.4-8.2) g/dL Albumin (3.4-5.0) g/dL Globulin Albumin/Globulin Ratio Triglycerides (0-149) mg/dL Cholesterol (0-199) mg/dL LDL Cholesterol, Calc (0-100) mg/dL HDL Cholesterol (40-59) mg/dL Urine Color Yellow (YELLOW) Urine Appearance Clear (CLEAR) Urine pH 7.0 (5.0-9.0) Ur Specific Raymond 1.025 (1.005-1.030) Urine Protein 100 H (NEGATIVE) Urine Glucose (UA) Negative (NEGATIVE) Urine Ketones Trace H (NEGATIVE) Urine Occult Blood Negative (NEGATIVE) Urine Nitrite Negative (NEGATIVE) Urine Bilirubin Negative (NEGATIVE) Urine Urobilinogen 2.0 H (0.2-1.0) mg/dL Ur Leukocyte Esterase Negative (NEGATIVE) Urine RBC Not seen /HPF Urine WBC 0-5 (0-5/HPF) /HPF Ur Epithelial Cells Rare (NOT SEEN) /HPF Amorphous Sediment Few (NOT SEEN) /HPF Urine Bacteria Few (0-FEW/HPF) /HPF Fine Granular Casts Occasional H (NOT SEEN) /LPF Urine Mucus Few H (NOT SEEN) /LPF SARS CoV-2 RNA Rapid PAULO Negative (NEGATIVE) 03/28/20 03/28/20 03/28/20 Range/Units 06:47 06:47 06:47 WBC (5.0-10.0) 10^3/uL RBC (4.6-6.2) 10^6/uL Hgb (14.0-18.0) g/dL Hct (40.0-54.0) % MCV (80-100) fL MCH (27.0-34.0) pg MCHC (33.0-35.0) g/dL Plt Count (150-450) 10^3/uL Neut % (Auto) (42.2-75.2) % Lymph % (Auto) (20.5-50.1) % Kinney % (Auto) (2-8) % Eos % (Auto) (1.0-3.0) % Baso % (Auto) (0.0-1.0) % PT 15.7 H (9.0-12.0) SEC INR 1.7 H (0.9-1.2) Sodium (136-145) mmol/L Potassium (3.5-5.1) mmol/L Chloride (98-107) mmol/L Carbon Dioxide (21-32) mmol/L Anion Gap (7-13) mEq/L BUN (7-18) mg/dL Creatinine (0.70-1.30) mg/dL Est Cr Clr Drug Dosing Estimated GFR (MDRD) BUN/Creatinine Ratio (No establ ref range) Glucose (74-99) mg/dL POC Glucose (83-110) mg/dl Hemoglobin A1c 6.4 H (<5.7) % Calcium (8.5-10.1) mg/dL Total Bilirubin (0.2-1.0) mg/dL AST (15-37) U/L ALT (16-63) U/L Alkaline Phosphatase (46-116) U/L Troponin I (0.000-0.056) ng/mL Total Protein (6.4-8.2) g/dL Albumin (3.4-5.0) g/dL Globulin Albumin/Globulin Ratio Triglycerides 63 (0-149) mg/dL Cholesterol 146 (0-199) mg/dL LDL Cholesterol, Calc 67 (0-100) mg/dL HDL Cholesterol 66 H (40-59) mg/dL Urine Color (YELLOW) Urine Appearance (CLEAR) Urine pH (5.0-9.0) Ur Specific Raymond (1.005-1.030) Urine Protein (NEGATIVE) Urine Glucose (UA) (NEGATIVE) Urine Ketones (NEGATIVE) Urine Occult Blood (NEGATIVE) Urine Nitrite (NEGATIVE) Urine Bilirubin (NEGATIVE) Urine Urobilinogen (0.2-1.0) mg/dL Ur Leukocyte Esterase (NEGATIVE) Urine RBC /HPF Urine WBC (0-5/HPF) /HPF Ur Epithelial Cells (NOT SEEN) /HPF Amorphous Sediment (NOT SEEN) /HPF Urine Bacteria (0-FEW/HPF) /HPF Fine Granular Casts (NOT SEEN) /LPF Urine Mucus (NOT SEEN) /LPF SARS CoV-2 RNA Rapid PAULO (NEGATIVE) 03/28/20 03/28/20 Range/Units 08:00 09:37 WBC (5.0-10.0) 10^3/uL RBC (4.6-6.2) 10^6/uL Hgb (14.0-18.0) g/dL Hct (40.0-54.0) % MCV (80-100) fL MCH (27.0-34.0) pg MCHC (33.0-35.0) g/dL Plt Count (150-450) 10^3/uL Neut % (Auto) (42.2-75.2) % Lymph % (Auto) (20.5-50.1) % Kinney % (Auto) (2-8) % Eos % (Auto) (1.0-3.0) % Baso % (Auto) (0.0-1.0) % PT (9.0-12.0) SEC INR (0.9-1.2) Sodium (136-145) mmol/L Potassium (3.5-5.1) mmol/L Chloride (98-107) mmol/L Carbon Dioxide (21-32) mmol/L Anion Gap (7-13) mEq/L BUN (7-18) mg/dL Creatinine (0.70-1.30) mg/dL Est Cr Clr Drug Dosing Estimated GFR (MDRD) BUN/Creatinine Ratio (No establ ref range) Glucose (74-99) mg/dL POC Glucose 152 H 189 H (83-110) mg/dl Hemoglobin A1c (<5.7) % Calcium (8.5-10.1) mg/dL Total Bilirubin (0.2-1.0) mg/dL AST (15-37) U/L ALT (16-63) U/L Alkaline Phosphatase (46-116) U/L Troponin I (0.000-0.056) ng/mL Total Protein (6.4-8.2) g/dL Albumin (3.4-5.0) g/dL Globulin Albumin/Globulin Ratio Triglycerides (0-149) mg/dL Cholesterol (0-199) mg/dL LDL Cholesterol, Calc (0-100) mg/dL HDL Cholesterol (40-59) mg/dL Urine Color (YELLOW) Urine Appearance (CLEAR) Urine pH (5.0-9.0) Ur Specific Raymond (1.005-1.030) Urine Protein (NEGATIVE) Urine Glucose (UA) (NEGATIVE) Urine Ketones (NEGATIVE) Urine Occult Blood (NEGATIVE) Urine Nitrite (NEGATIVE) Urine Bilirubin (NEGATIVE) Urine Urobilinogen (0.2-1.0) mg/dL Ur Leukocyte Esterase (NEGATIVE) Urine RBC /HPF Urine WBC (0-5/HPF) /HPF Ur Epithelial Cells (NOT SEEN) /HPF Amorphous Sediment (NOT SEEN) /HPF Urine Bacteria (0-FEW/HPF) /HPF Fine Granular Casts (NOT SEEN) /LPF Urine Mucus (NOT SEEN) /LPF SARS CoV-2 RNA Rapid PAULO (NEGATIVE) Med Orders - Current: Current Medications Acetaminophen (Tylenol) 650 mg PO Q4H PRN PRN Reason: Pain (Mild 1-3)/fever Last Admin: 03/28/20 05:22 Dose: 650 mg Documented by: Albuterol/Ipratropium (Duoneb 3.0-0.5 Mg/3 Ml) 3 ml NEB Q6HRRT [facility] Last Admin: 03/28/20 07:45 Dose: 3 ml Documented by: Albuterol/Ipratropium (Duoneb 3.0-0.5 Mg/3 Ml) 3 ml NEB Q2H PRN PRN Reason: sob Aspirin (Halfprin) 81 mg PO DAILY [facility] Atorvastatin Calcium (Lipitor) 40 mg PO BEDTIME [facility] Budesonide (Pulmicort) 0.5 mg NEB BIDRT [facility] Last Admin: 03/28/20 07:45 Dose: 0.5 mg Documented by: Carbidopa/Levodopa (Sinemet 25-250 Mg) 1 tab PO TID [facility] Dextrose/Water (Dextrose 50% In Water) 50 ml IV ASDIRECTED PRN PRN Reason: Hypoglycemia Dextrose/Water (Dextrose 50% In Water) 25 ml IVPUSH Q1H PRN PRN Reason: blood sugar <70 Dextrose/Water (Dextrose 50% In Water) 50 ml IV ASDIRECTED PRN PRN Reason: Hypoglycemia Docusate Sodium (Colace) 100 mg PO BID PRN PRN Reason: Constipation Furosemide (Lasix) 40 mg PO DAILY [facility] Gabapentin (Neurontin) 300 mg PO BEDTIME [facility] Glucagon (Glucagen) 1 mg IM ASDIRECTED PRN PRN Reason: Hypoglycemia Glucagon (Glucagen) 1 mg IM ASDIRECTED PRN PRN Reason: Hypoglycemia Insulin Human Lispro (Humalog) 0 unit SUBCUT QIDACANDBED [facility]; Protocol Insulin Human NPH (Humulin N) 12 unit SQ BID [facility] Levothyroxine Sodium (Levothyroxine) 25 mcg PO ACBREAKFAST [facility] Last Admin: 03/28/20 05:22 Dose: 25 mcg Documented by: Lisinopril (Prinivil) 20 mg PO BID [facility] Omeprazole (Omeprazole) 20 mg PO BID [facility] Ondansetron HCl (Zofran) 4 mg IVPUSH Q4H PRN PRN Reason: Nausea/Vomiting Oxycodone HCl (Oxycodone) 5 mg PO Q4H PRN PRN Reason: Pain (moderate 4-6) Sodium Chloride (Saline Flush) 10 ml FLUSH ASDIRECTED PRN PRN Reason: Keep Vein Open Sulfasalazine (Sulfasalazine) 500 mg PO BID [facility] Temazepam (Restoril) 15 mg PO BEDTIME PRN PRN Reason: Sleep Warfarin Sodium (Pharmacy To Dose - Warfarin) 1 dose .XX ASDIRECTED [facility] Warfarin Sodium (Coumadin) 7.5 mg PO ONETIME ONE Stop: 03/28/20 14:01 Discontinued Medications Iopamidol (Isovue-370 (76%)) 100 ml IVPUSH ONETIME ONE Stop: 03/28/20 10:01 Last Admin: 03/28/20 10:06 Dose: 75 ml Documented by: - Exam General: Reports: Alert Neck: Reports: Supple Cardiovascular: Reports: Irregular Rhythm GI/Abdominal Exam: Normal Bowel Sounds, Soft, Non-Tender Extremities: No Pedal Edema Neurological: Reports: Other (left hemiplegia, left facial droop)
[2020-03-28] MEDS ORDERED: Sodium Chloride 0.9% 1,000 ML IV SCH (11:15)
[2020-03-28] MEDS: Insulin Lispro 100 Units/ML 3 ML Vial SUBCUT SCH ×2 (12:37→12:38)
[2020-03-28 13:25] VITALS: BP 136/86; PULSE 62
[2020-03-28] MEDS ORDERED: Warfarin 2.5 MG Tab PO ONE (14:00)
[2020-03-28] MEDS ORDERED: atorvaSTATin 20 MG Tab PO SCH (21:00)
[2020-03-28] MEDS ORDERED: Gabapentin 300 MG Cap PO SCH (21:00)
== END 2020-03-28 11:42 ==
LOC: DL.ED 22:48 → DL.MS 03-28 01:23
PROVIDERS: ADMIT Internal Medicine; ATTEND Internal Medicine
DX: I63.519 Cerebral infarction due to unspecified occlusion or stenosis of unspecified middle cerebral artery (principal); G47.33 Obstructive sleep apnea (adult) (pediatric); I48.91 Unspecified atrial fibrillation; Z79.899 Other long term (current) drug therapy; Z88.1 Allergy status to other antibiotic agents; Z88.8 Allergy status to other drugs, medicaments and biological substances; Z79.82 Long term (current) use of aspirin; Z79.01 Long term (current) use of anticoagulants; J44.9 Chronic obstructive pulmonary disease, unspecified; E78.00 Pure hypercholesterolemia, unspecified; I12.9 Hypertensive chronic kidney disease with stage 1 through stage 4 chronic kidney disease, or unspecified chronic kidney disease; N18.9 Chronic kidney disease, unspecified; E11.40 Type 2 diabetes mellitus with diabetic neuropathy, unspecified; E11.22 Type 2 diabetes mellitus with diabetic chronic kidney disease; Z86.718 Personal history of other venous thrombosis and embolism; E03.9 Hypothyroidism, unspecified; M06.9 Rheumatoid arthritis, unspecified; Z99.89 Dependence on other enabling machines and devices; Z20.828 Contact with and (suspected) exposure to other viral communicable diseases
CPT/HCPCS: 36415; 70450; 70496; 70498; 80053; 80061; 81001; 82962; 83036; 84484; 85025; 85610; 93005; 93306; 94640; 99285; A9270; G0378; Q9967; U0002; J1815; J1815-GY; J7620-GY